=== PATIENT | female | born 1980 | race Two or more races ===

== ENCOUNTER 2020-06-15 12:42 | Outpatient (REF) | payer OTHER, SELFPAY ==
--- NOTE | 2020-06-15 | US_ITS ---
EXAMINATION: US PELVIS COMPLETE US PELVIS TRANSVAGINAL CLINICAL INFORMATION: Left lower quadrant pain. LMP 05/26/2020. COMPARISON: Pelvic ultrasound dated 04/17/2016 TECHNIQUE: Transabdominal and transvaginal imaging was performed. FINDINGS: The uterus is of normal size and echogenicity measuring 8.9 x 4.4 x 6.1 cm. A regular homogeneous endometrium is identified measuring 1.6 cm. Nabothian cysts within the cervix. Both ovaries are of normal size and echogenicity. The right measures 2.9 x 1.9 x 1.6 cm for a volume of 4.6 mL. Right ovarian probable corpus luteum measuring up to 1.8 cm. The left measures 4.5 x 2.7 x 2 cm for a volume of 12.7 mL. Trace pelvic fluid within the right and left adnexa. US/US pelvic complete IMPRESSION: 1. Sonographically unremarkable uterus and endometrium. 2. Right ovarian corpus luteum measuring 1.8 cm. 3. Trace free fluid within the right and left adnexa.
--- NOTE | 2020-06-15 | US_ITS ---
EXAMINATION: US PELVIS COMPLETE US PELVIS TRANSVAGINAL CLINICAL INFORMATION: Left lower quadrant pain. LMP 05/26/2020. COMPARISON: Pelvic ultrasound dated 04/17/2016 TECHNIQUE: Transabdominal and transvaginal imaging was performed. FINDINGS: The uterus is of normal size and echogenicity measuring 8.9 x 4.4 x 6.1 cm. A regular homogeneous endometrium is identified measuring 1.6 cm. Nabothian cysts within the cervix. Both ovaries are of normal size and echogenicity. The right measures 2.9 x 1.9 x 1.6 cm for a volume of 4.6 mL. Right ovarian probable corpus luteum measuring up to 1.8 cm. The left measures 4.5 x 2.7 x 2 cm for a volume of 12.7 mL. Trace pelvic fluid within the right and left adnexa. US/US transvaginal IMPRESSION: 1. Sonographically unremarkable uterus and endometrium. 2. Right ovarian corpus luteum measuring 1.8 cm. 3. Trace free fluid within the right and left adnexa.
== END 2020-06-15 12:43 | disposition home or self-care (01) ==
LOC: HO.US 12:42
PROVIDERS: PCP Student in an Organized Health Care Education/Training Program; Visit Provider Nurse Practitioner
DX: R10.32 Left lower quadrant pain (principal)
CPT/HCPCS: 76830; 76856

== ENCOUNTER 2020-06-30 08:17 | Outpatient (REF) | payer OTHER, SELFPAY ==
--- NOTE | ~2020-06-30 | US_ITS ---
EXAMINATION: US ABDOMEN COMPLETE CLINICAL INFORMATION: Epigastric pain. COMPARISON: None TECHNIQUE: Real-time imaging of the abdominal viscera. FINDINGS: PANCREAS: Normal. ABDOMINAL AORTA: The proximal, mid, and distal segments are normal in caliber. INFERIOR VENA CAVA: Visualized portions are normal. LIVER: Normal. The liver is normal in size. The liver contour is normal. Parenchymal echogenicity is normal. No focal hepatic lesion. There is no intrahepatic biliary duct dilatation seen. GALLBLADDER: Normal. The gallbladder is physiologically distended without evidence of stones, sludge, polyps, wall thickening or pericholecystic fluid. COMMON BILE DUCT: Normal in caliber measuring 0.3 cm in diameter. RIGHT KIDNEY: Normal. No hydronephrosis. No renal calculi or focal parenchymal lesions. The kidney measures 11 cm in maximum dimension. LEFT KIDNEY: Normal. No hydronephrosis. No renal calculi or focal parenchymal lesions. The kidney measures 11 cm in maximum dimension. SPLEEN: Normal. The spleen measures 10.3 cm in maximum dimension. FREE FLUID: None. US/US abdomen complete IMPRESSION: Normal abdominal ultrasound.
== END 2020-06-30 08:18 | disposition home or self-care (01) ==
LOC: HO.HMGCX 08:17
PROVIDERS: PCP Student in an Organized Health Care Education/Training Program; Visit Provider Student in an Organized Health Care Education/Training Program
DX: R10.13 Epigastric pain (principal)
CPT/HCPCS: 76700

== ENCOUNTER → 2020-08-15 13:01 | Outpatient (BNVA) | payer OTHER, SELFPAY | PROVIDERS: PCP Internal Medicine; Visit Provider Internal Medicine Gastroenterology ==

== ENCOUNTER 2020-08-29 08:54 | Outpatient (REF) | payer OTHER, SELFPAY ==
--- NOTE | ~2020-08-29 | CT_ITS ---
EXAMINATION: CT ABDOMEN AND PELVIS WITH CONTRAST CLINICAL INFORMATION: 40-year-old female with lower abdominal pain COMPARISON: Abdominal ultrasound June 30, 2020 and pelvic ultrasound June 15, 2020 TECHNIQUE: Multidetector volumetric images were obtained from the superior aspect of the liver through the pubic symphysis following administration 85 mL of Omnipaque 350 intravenous contrast. Sagittal and coronal reformatted images were obtained on the technologist's workstation. This CT examination was performed using dose optimization techniques as appropriate, variously including the following: *Automated exposure control *Adjustment of mA and/or kV according to patient size (this includes techniques or standardized protocols for targeted exams where dose is matched to indication/reason for exam; i.e. extremities or head) *Use of iterative reconstruction technique DLP: 361 mGy-cm FINDINGS: Visualized lung bases are well aerated. The liver demonstrates normal size, contour and attenuation. 7 mm hypodensity within the right hepatic lobe is too small to accurately characterize. The gallbladder is normal in appearance. The pancreas, spleen and adrenal glands are unremarkable. Symmetrically enhancing kidneys. There is mild fullness of the right-sided collecting system and subtle prominence of the left-sided collecting system. No renal calculi appreciated. The stomach is decompressed. Normal caliber loops of small and large bowel. Moderate stool burden throughout the colon. Normal appendix. Nonaneurysmal abdominal aorta. The bladder is well-distended and normal in appearance. Unremarkable CT appearance of the uterus. Trace free pelvic fluid is likely physiologic. Shotty bilateral inguinal lymph nodes. No acute osseous abnormality. CT/CT abdomen pelvis w con IMPRESSION: -Mild fullness of the right-sided collecting system with subtle prominence of the left-sided collecting system. No definitive renal calculi are noted. The distal ureters are poorly visualized as they abut the ovary. Clinical correlation is recommended. This may be further evaluated with CT urogram if clinically indicated. -Moderate stool burden throughout the colon suggesting constipation.
[2020-08-29] MEDS: Barium Sulfate Oral (Berry) 450 ML ORAL.SUSP 900 ML PO (12:04)
== END 2020-08-29 08:55 | disposition home or self-care (01) ==
LOC: HO.CT 08:54
PROVIDERS: PCP Student in an Organized Health Care Education/Training Program; Visit Provider Internal Medicine Gastroenterology
DX: R10.30 Lower abdominal pain, unspecified (principal); Z87.42 Personal history of other diseases of the female genital tract
CPT/HCPCS: 74177; Q9967

== ENCOUNTER 2020-08-30 14:04 | Outpatient (REF) | payer OTHER, SELFPAY ==
[2020-08-30 15:05] LABS: Glucose Urine UA NEG (NEG); Leukocyte Esterase Urine 1+ (NEG); Nitrite Urine NEG (NEG); Specific Gravity - Urine 1.025 (1.005-1.025); UACC Culture Trigger YES; Urine Blood NEG (NEG); Urine Ketones NEG (NEG); Urine Protein NEG (NEG-TRACE)
[2020-08-30 15:07] LABS: Appearance Urine CLEAR; Color Urine YELLOW
[2020-08-30 15:15] LABS: RBC Urine 0-2 /HPF (0); Squamous Epithelial Cell Urine 1+ /LPF; WBC Urine 0-2 /HPF (0-4)
[2020-08-30 15:16] LABS: Mucus Urine TRACE /LPF
== END 2020-08-30 14:05 | disposition home or self-care (01) ==
LOC: HO.LAB 14:04
PROVIDERS: PCP Internal Medicine; Visit Provider Internal Medicine Gastroenterology
DX: R10.30 Lower abdominal pain, unspecified (principal)
CPT/HCPCS: 81001; 81003; 87086

== ENCOUNTER 2020-09-02 09:08 | Outpatient (REF) | payer OTHER, SELFPAY ==
[2020-09-02 10:06] LABS: MANUAL DIFF FLAG NO
[2020-09-02 10:24] LABS: Basophils Absolute Auto 0.1 X10*3/uL (0.0-0.2); Basophils Percent Auto 1.3 % (0-2); Eosinophils Absolute Auto 0.1 X10*3/uL (0.0-0.4); Eosinophils Percent Auto 1.7 % (0-4); Hematocrit 39.1 % (37-47); Hemoglobin 12.9 g/dl (12.0-16.0); Imm Gran Abs Auto 0.02 X10*3/uL (0.00-0.03); Imm Gran Pct Auto 0.3 % (0.0-0.4); Lymphocytes Absolute Auto 1.4 X10*3/uL (1.2-4.9); Lymphocytes Percent Auto 19.4 % (20-40); Mean Corpuscular Hemoglobin 27.9 pg (27.0-33.0); Mean Corpuscular Volume 84.4 fL (80-98); Mean Platelet Volume 10.3 fL (9.4-12.3); Monocytes Absolute Auto 0.5 X10*3/uL (0.1-1.2); Monocytes Percent Auto 7.3 % (2-11); Neutrophils Absolute Auto 4.9 X10*3/uL (2.0-8.3); Platelet Count 256 X10*3/uL (160-400); Red Blood Count 4.63 X10*6/uL (4.20-5.50); Red Cell Distribution Width 13.4 % (11.0-16.0)
[2020-09-02 10:42] LABS: Alanine Aminotransferase 18 U/L (0-31); Albumin Level 4.3 g/dL (3.5-5.0); Alkaline Phosphatase 66 U/L (39-117); Anion Gap 13 (12-20); Aspartate Amino Transferase 15 U/L (5-31); Bilirubin Total 0.4 mg/dL (0.0-1.0); Blood Urea Nitrogen 15 mg/dL (9-16); Calcium 9.2 mg/dL (8.4-10.2); Carbon Dioxide 24 mmol/L (22-29); Chloride 107 mmol/L (96-108); Cholesterol 148 mg/dL; Estimated Glomerular Filt Rate > 60; Glucose Fasting 92 mg/dL (60-99); HDL Cholesterol 30 mg/dL; LDL Cholesterol Calculated 100 mg/dl; Potassium 4.2 mmol/L (3.3-5.1); Sodium 140 mmol/L (135-145); Total Protein 7.5 g/dL (6.5-8.0); Triglycerides 92 mg/dL
[2020-09-02 11:06] LABS: TSH reflex Free T4 2.28 uIU/mL (0.32-4.0)
[2020-09-04 07:57] LABS: SARS COV2 IgG Negative (Negative)
[2020-09-06 13:11] LABS: Vitamin D 25-OH, D2 <4 ng/mL; Vitamin D 25-OH, D3 28 ng/mL; Vitamin D 25-OH, Total 28 ng/mL (30-100)
== END 2020-09-02 09:09 | disposition home or self-care (01) ==
LOC: HO.LAB 09:08
PROVIDERS: PCP Internal Medicine; Visit Provider Internal Medicine
DX: Z20.822 Contact with and (suspected) exposure to COVID-19 (principal); R10.30 Lower abdominal pain, unspecified; D64.9 Anemia, unspecified; E66.3 Overweight; E55.9 Vitamin D deficiency, unspecified; E78.5 Hyperlipidemia, unspecified
CPT/HCPCS: 36415; 80053; 80061; 82306; 84443; 85025; 86769

== ENCOUNTER 2020-11-21 14:35 | Outpatient (REF) | payer OTHER, SELFPAY ==
--- NOTE | ~2020-11-21 | CT_ITS ---
EXAMINATION: CT ABDOMEN AND PELVIS WITHOUT AND WITH CONTRAST CLINICAL INFORMATION: Lower abdominal pain. COMPARISON: Previous CT of the abdomen and pelvis August 2020 and pelvic ultrasound May 2020. TECHNIQUE: Noncontrast CT of the abdomen and pelvis is performed followed by split bolus contrast-enhanced images using 85 mL Omnipaque 350 contrast.? Postcontrast imaging is performed during the combined nephrogram and excretion phase. Sagittal and coronal reformatted images were obtained on the technologist's workstation for both the precontrast and postcontrast phases. This CT examination was performed using dose optimization techniques as appropriate, variously including the following: *Automated exposure control. *Adjustment of mA and/or kV according to patient size (this includes techniques or standardized protocols for targeted exams where dose is matched to indication/reason for exam; i.e. extremities or head). *Use of iterative reconstruction technique. DLP: 688 mGy-cm FINDINGS: LUNG BASES: The visualized lung bases are unremarkable. LIVER, GALLBLADDER, AND BILIARY TREE: There is a small low-attenuation lesion high in the dome of the liver measuring 7 mm, axial image 11 series 3, that is stable. The liver is otherwise unremarkable. The gallbladder is unremarkable. There is no biliary duct dilatation. PANCREAS: Unremarkable. SPLEEN: Unremarkable. ADRENAL GLANDS: Unremarkable. KIDNEYS AND URETERS: There is mild right hydronephrosis and right proximal and mid ureteral dilatation. The right distal ureter does not appear dilated. No stone is seen. The left renal collecting system is normal-appearing. The left ureter is normal in caliber. BLADDER: Unremarkable. GASTROINTESTINAL TRACT: The small and large bowel are unremarkable. The appendix is unremarkable. ABDOMINAL WALL: No significant hernia is appreciated. LYMPH NODES: Normal. VASCULAR: Unremarkable. PELVIC VISCERA: Unremarkable. OSSEUS STRUCTURES: Unremarkable. CT/CT urogram IMPRESSION: There is mild right hydronephrosis and proximal and mid ureteral dilatation similar to previous exam. No stone or mass seen.
[2020-11-21] MEDS: iohexoL 350 MG/ML 100 ML INFUS..BTL IV (15:29)
== END 2020-11-21 14:36 | disposition home or self-care (01) ==
LOC: HO.CT 14:35
PROVIDERS: PCP Internal Medicine; Visit Provider Internal Medicine
DX: R10.30 Lower abdominal pain, unspecified (principal)
CPT/HCPCS: 74178; Q9967

== ENCOUNTER → 2020-12-27 14:53 | Outpatient (BNVA) | payer OTHER, SELFPAY | PROVIDERS: Visit Provider Urology ==

== ENCOUNTER 2021-02-09 13:49 | Outpatient (REF) | payer OTHER, SELFPAY ==
--- NOTE | ~2021-02-09 | US_ITS ---
EXAMINATION: US RETROPERITONEAL LIMITED (RENAL ONLY) CLINICAL INFORMATION: Renal colic. COMPARISON: Ultrasound abdomen 06/27/[address] urogram October 2020 TECHNIQUE: Real-time imaging of the kidneys. FINDINGS: RIGHT KIDNEY: 10.9 x 4.28 x 6.1 cm (SAG x AP x TRV). The kidney is normal in size, contour, and echogenicity. Renal cortical thickness is normal. No calculi or focal parenchymal lesions. No hydronephrosis. LEFT KIDNEY: 10.4 x 4.57 x 4.6 cm (SAG x AP x TRV). The kidney is normal in size, contour, and echogenicity. Renal cortical thickness is normal. No calculi or focal parenchymal lesions. No hydronephrosis. US/US renal BI IMPRESSION: Normal renal ultrasound.
== END 2021-02-09 13:50 | disposition home or self-care (01) ==
LOC: HO.HMGCX 13:49
PROVIDERS: PCP Internal Medicine; Visit Provider Urology
DX: R10.84 Generalized abdominal pain (principal); N13.39 Other hydronephrosis; R35.0 Frequency of micturition; R39.14 Feeling of incomplete bladder emptying
CPT/HCPCS: 76775

== ENCOUNTER 2021-05-08 09:29 | Outpatient (REF) | payer OTHER, SELFPAY ==
--- NOTE | ~2021-05-08 | XR_ITS ---
EXAMINATION: XR CHEST CLINICAL INFORMATION: Chest pain. COMPARISON: Chest radiographs dated 08/17/2015. TECHNIQUE: Frontal view of the chest was obtained. FINDINGS: No significant abnormality is noted involving the heart, lungs, mediastinum, bony thorax or soft tissues. XR/XR chest 1V IMPRESSION: No acute cardiopulmonary process.
== END 2021-05-08 09:30 | disposition home or self-care (01) ==
LOC: HO.XRAY 09:29
PROVIDERS: PCP Internal Medicine; Visit Provider Nurse Practitioner Acute Care
DX: R07.89 Other chest pain (principal)
CPT/HCPCS: 71045

== ENCOUNTER 2021-05-21 08:06 | Outpatient (REF) | payer OTHER, SELFPAY ==
[2021-05-21 08:21] LABS: MANUAL DIFF FLAG NO
[2021-05-21 08:56] LABS: Eosinophils Absolute Auto 0.1 X10*3/uL (0.0-0.4); Eosinophils Percent Auto 1.9 % (0-4); Hematocrit 38.5 % (37.0-47.0); Hemoglobin 12.4 g/dl (12.0-16.0); Imm Gran Abs Auto 0.01 X10*3/uL (0.00-0.03); Imm Gran Pct Auto 0.2 % (0.0-0.4); Lymphocytes Absolute Auto 0.6 X10*3/uL (1.2-4.9); Lymphocytes Percent Auto 14.3 % (20-40); Mean Corpuscular HGB Conc 32.2 g/dl (31.0-35.0); Mean Corpuscular Volume 83.9 fL (80.0-98.0); Mean Platelet Volume 9.7 fL (9.4-12.3); Monocytes Absolute Auto 0.4 X10*3/uL (0.1-1.2); Monocytes Percent Auto 9.9 % (2-11); Neutrophils Percent Auto 72.7 % (45-73); Platelet Count 244 X10*3/uL (160-400); Red Blood Count 4.59 X10*6/uL (4.20-5.50); Red Cell Distribution Width 13.5 % (11.0-16.0); White Blood Count 4.1 X10*3/uL (4.8-10.8)
[2021-05-21 09:05] LABS: Estimated Average Glucose 105 mg/dL; Hemoglobin A1C 117.1239 umol/L; Hemoglobin A1c % 5.3 %
[2021-05-21 09:22] LABS: Alanine Aminotransferase 16 U/L (0-31); Albumin Level 4.1 g/dL (3.5-5.0); Alkaline Phosphatase 60 U/L (39-117); Anion Gap 9 (12-20); Aspartate Amino Transferase 15 U/L (5-31); Bilirubin Total 0.3 mg/dL (0.0-1.0); Blood Urea Nitrogen 9 mg/dL (9-16); Calcium 9.3 mg/dL (8.4-10.2); Carbon Dioxide 27 mmol/L (22-29); Chloride 108 mmol/L (96-108); Cholesterol 156 mg/dL; Estimated Glomerular Filt Rate > 60; Glucose Fasting 97 mg/dL (60-99); HDL Cholesterol 31 mg/dL; LDL Cholesterol Calculated 103 mg/dl; Sodium 140 mmol/L (135-145); Total Protein 7.2 g/dL (6.5-8.0); Triglycerides 111 mg/dL
[2021-05-25 13:01] LABS: Vitamin D 25-OH, D2 <4 ng/mL; Vitamin D 25-OH, D3 27 ng/mL; Vitamin D 25-OH, Total 27 ng/mL (30-100)
== END 2021-05-21 08:07 | disposition home or self-care (01) ==
LOC: HO.LAB 08:06
PROVIDERS: PCP Internal Medicine; Visit Provider Nurse Practitioner Acute Care
DX: E66.3 Overweight (principal); E55.9 Vitamin D deficiency, unspecified
CPT/HCPCS: 36415; 80053; 80061; 82306; 83036; 85025

== ENCOUNTER 2021-08-24 14:13 | Outpatient (REF) | payer OTHER, SELFPAY ==
[2021-08-24 14:55] LABS: Hematocrit 39.2 % (37.0-47.0); Hemoglobin 12.6 g/dl (12.0-16.0); Mean Corpuscular HGB Conc 32.1 g/dl (31.0-35.0); Mean Corpuscular Hemoglobin 26.8 pg (27.0-33.0); Mean Corpuscular Volume 83.2 fL (80.0-98.0); Mean Platelet Volume 9.8 fL (9.4-12.3); Platelet Count 278 X10*3/uL (160-400); Red Blood Count 4.71 X10*6/uL (4.20-5.50); Red Cell Distribution Width 13.3 % (11.0-16.0); White Blood Count 5.8 X10*3/uL (4.8-10.8)
[2021-08-24 15:29] LABS: Erythrocyte Sedimentation Rate 11 MM/HR (0-20)
[2021-08-24 15:31] LABS: Alanine Aminotransferase 20 U/L (0-31); Albumin Level 4.4 g/dL (3.5-5.0); Alkaline Phosphatase 66 U/L (39-117); Anion Gap 10 (12-20); Aspartate Amino Transferase 18 U/L (5-31); Bilirubin Total 0.5 mg/dL (0.0-1.0); Blood Urea Nitrogen 9 mg/dL (9-16); Calcium 9.6 mg/dL (8.4-10.2); Carbon Dioxide 27 mmol/L (22-29); Chloride 107 mmol/L (96-108); Estimated Glomerular Filt Rate > 60; Glucose Random 77 mg/dL (60-115); Lipase 33 U/L (8-78); Sodium 140 mmol/L (135-145); Total Protein 7.7 g/dL (6.5-8.0)
== END 2021-08-24 14:14 | disposition home or self-care (01) ==
LOC: HO.LAB 14:13
PROVIDERS: Physician Assistant; PCP Internal Medicine; Visit Provider Nurse Practitioner Family
DX: R10.84 Generalized abdominal pain (principal); M79.10 Myalgia, unspecified site
CPT/HCPCS: 36415; 80053; 82550; 83690; 85027; 85652

== ENCOUNTER 2021-09-14 11:14 | Outpatient (REF) | payer OTHER, SELFPAY ==
--- NOTE | ~2021-09-14 | US_ITS ---
EXAMINATION: US ABDOMEN COMPLETE CLINICAL INFORMATION: Right upper quadrant pain, rule out gallbladder etiology. COMPARISON: US retroperitoneal limited (renal only) 02/09/2021. CT abdomen and pelvis without and with contrast 11/21/2020. Ultrasound abdomen complete 06/30/2020. TECHNIQUE: Real-time imaging of the abdominal viscera. FINDINGS: PANCREAS: Normal. ABDOMINAL AORTA: The proximal, mid, and distal segments are normal in caliber. INFERIOR VENA CAVA: Visualized portions are normal. LIVER: Normal. The liver is normal in size. The liver contour is normal. Parenchymal echogenicity is normal. No focal hepatic lesion. There is no intrahepatic biliary duct dilatation seen. GALLBLADDER: Normal. The gallbladder is physiologically distended without evidence of stones, sludge, polyps, wall thickening or pericholecystic fluid. COMMON BILE DUCT: Normal in caliber measuring 0.3 cm in diameter. RIGHT KIDNEY: Normal. No hydronephrosis. No renal calculi or focal parenchymal lesions. The kidney measures 11.7 cm in maximum dimension. LEFT KIDNEY: Normal. No hydronephrosis. No renal calculi or focal parenchymal lesions. The kidney measures 11.0 cm in maximum dimension. SPLEEN: Normal. The spleen measures 10.3 cm in maximum dimension. FREE FLUID: None. US/US abdomen complete IMPRESSION: Normal abdominal ultrasound.
== END 2021-09-14 11:15 | disposition home or self-care (01) ==
LOC: HO.HMGCX 11:14
PROVIDERS: Visit Provider Nurse Practitioner Family
DX: R10.84 Generalized abdominal pain (principal); R10.11 Right upper quadrant pain
CPT/HCPCS: 76700

== ENCOUNTER 2022-01-01 12:52 | Outpatient (REF) | payer OTHER, SELFPAY ==
--- NOTE | ~2022-01-01 | US_ITS ---
EXAMINATION: US PELVIS CLINICAL INFORMATION: Pain COMPARISON: Previous pelvic ultrasound May 2020 TECHNIQUE: Ultrasound of the pelvis is performed using both transabdominal and transvaginal transducers along with Doppler. Transvaginal imaging is performed due to inadequate visualization transabdominally. FINDINGS: The uterus is retroverted and measures 8.2 x 4.7 x 5.8 cm in dimension. No focal uterine lesion is seen. Endometrial thickness is normal measuring 1.4 cm. There are nabothian cysts in the cervix. The right ovary is normal and measures 3.7 x 1.8 x 2.6 cm. The left ovary measures 4 x 2 x 3 cm. There is a 2 x 1.5 x 1.9 cm complex left ovarian cyst probably representing a corpus luteum. There is no fluid in the pelvis. US/US pelvic and transvaginal IMPRESSION: Unremarkable exam.
== END 2022-01-01 12:53 | disposition home or self-care (01) ==
LOC: HO.HMGCX 12:52
DX: R10.2 Pelvic and perineal pain (principal)
CPT/HCPCS: 76830; 76856

== ENCOUNTER 2022-05-02 12:37 | Outpatient (REF) | payer OTHER, SELFPAY ==
[2022-05-02 13:45] LABS: CDiff Gene PCR NEGATIVE (Negative)
[2022-05-02 13:54] LABS: Leukocytes Stool Qualitative NEGATIVE (NEGATIVE)
== END 2022-05-02 12:38 | disposition home or self-care (01) ==
LOC: HO.LNP 12:37
PROVIDERS: Visit Provider Internal Medicine
DX: K92.1 Melena (principal); R19.7 Diarrhea, unspecified
CPT/HCPCS: 87493; 89055

== ENCOUNTER 2023-01-21 13:49 | Outpatient (AMB) | payer OTHER, SELFPAY ==
[2023-01-21 13:51] VITALS: BP 110/80; PULSE 98; O2SAT 98; BMI 28.0
--- NOTE | 2023-01-21 13:51 | A.OFFPC_ITS ---
Vital Signs 01/21/23 13:51 Height 5 ft 4 in Weight 163 lb BMI 28.0 BP 110/80 Blood Pressure Location Lt brachial Position Sitting Pulse 98 Pulse Source Pulse Oximeter Pulse Oximetry (%) 98 Oxygen Delivery Method Room Air Intake Visit Reasons: Transfer of care from Dr. Espinoza Intake Note: pt is here for tx of care, requesting referral for GI for rectal bleeding, complaint of L flank pain since yesterday Medical Receptionist Medical Assistant Required: No Tailer Off: Not Required per policy Accompanied by: Self / Same As Patient Allergies amoxicillin [From Augmentin] Allergy (Mild, Verified 01/21/23 14:15) rash clavulanic acid [From Augmentin] Allergy (Mild, Verified 01/21/23 14:15) rash SEASONAL ALLERGIES Allergy (Mild, Uncoded 04/29/22 16:34) RUNNY NOSE Medication List - Last Reconciled 01/21/23 by LAVERNE Blevins acetaminophen 1,000 mg PO Q6H PRN cholecalciferol (vitamin D3) 25 mcg PO DAILY 30 days ibuprofen 600 mg PO Q6H PRN 15 days loratadine (Allergy Relief (loratadine)) 10 mg PO DAILY PRN 90 days [id number]-BA 3.5-10,000-1 mg/mL-unit/mL-% 4 drps otic (ears) Q8H Tobacco use date assessed: 01/21/23 Dental Screening Dental Screen Date: 01/21/23 Did you have a dental visit in the last 12 months?: Yes Did you have a dental problem in the last 6 months where you did not have access to dental care?: No Was dental information given to patient?: Patient has dentist HPI HPI Comments History of Present Illness Details 32-year-old female presents today for transfer care from Dr. Espinoza. Past medical history significant for vitamin-D deficiency, history of endometriosis and hydronephrosis. Patient reports left lower quadrant pain since yesterday, states the pain is like a pulling pain. Patient reports she is constipated at times however last bowel movement was yesterday which she reported as normal. Patient denies any nausea, vomiting, diarrhea and blood in the stools. Patient does report epigastric pain and feeling of fullness. Patient reports has been on omeprazole in the past. Review of the notes patient was seen at [facility] in April for right upper quadrant pain and had abdominal CT completed which showed a 7 mm low-density lesion on the left lobe of the liver which was too small to characterize, no colonic wall thickening with did however reveal a moderate amount of pelvic free fluid. Given patient is experiencing left lower quadrant abdominal pain will order abdominal CT scan to follow-up. Pap smear: Patient follows with [facility] obgyn Mammogram: May 2022 at [place] Eye exam: Last year. [facility] Medical History (Updated 01/21/23 @ 14:46 by LAVERNE Blevins) Gastroenteritis due to norovirus History of endometriosis Hydronephrosis Otitis media Overweight Surgical History H/O laparoscopy History of tubal ligation Family History Father Diabetes Mother Hypertension Maternal Aunt Cancer Family/Other Cancer Social History Housing: Apartment Alcohol intake: never Patient Tobacco Use Status: Never used Tobacco e-Cigarette/Vaping Use: Never Used Second Hand Smoke Exposure: No service: No Current occupational status: employed Current occupational exposures/hazards: No Cognitive needs: No Hearing needs: No Vision needs: Yes (glasses) Questionnaire PHQ-9 Over the last 2 weeks, how often have you been bothered by any of the following problems? 1. Little interest or pleasure in doing things: not at all 2. Feeling down, depressed, or hopeless: not at all 3. Trouble falling or staying asleep, or sleeping too much: not at all 4. Feeling tired or having little energy: not at all 5. Poor appetite or overeating: not at all 6. Feeling bad about yourself - or that you are a failure or have let yourself or your family down: not at all 7. Trouble concentrating on things, such as reading the newspaper or watching television: not at all 8. Moving or speaking so slowly that other people could have noticed. Or the opposite - being so fidgety or restless that you have been moving around a lot more than usual: not at all 9. Thoughts that you would be better off or of hurting yourself in some w ay: not at all Total score: 0 Depression Screening Interpretation: Negative 85933 - PHQ-9 Billing: Yes Source: Developed by Drs. Dayne Arauz, Chintan Philip and colleagues, with an educational yeni from [employer]. Thrive Questionnaire Date Thrive assessed: 01/21/23 I am a: Patient What is your living situation today?: I have a steady place to live Within the past 12 months, did the food you bought not last and you didn't have the money to get more?: Never true Within the past 12 months, did you worry whether your food would run out before you got money to buy more?: Never true Do you have trouble paying for medicines?: No Do you have trouble getting transportation to medical appointments?: No Do you have trouble paying your heating and electricity bill?: No Do you have trouble taking care of your child, family member or friend?: No Do you have trouble with day-to-day activities such as bathing, preparing meals, shopping, managing finances, etc.?: No Are you currently unemployed and looking for a job?: No Are you interested in more education?: No Currently or been in a relationship where the following occur: no concerns reported AUDIT C Alcohol Use Questionnaire (AUDIT-C) 1. How often do you have a drink containing alcohol?: Never Total Score: 0 OZZIE-7 AMB Questionnaire OZZIE-7 Date OZZIE - 7 assessed: 01/21/23 Feeling nervous, anxious, or on edge: 0 = Not at all Not being able to stop or control worryin = Not at all Worrying too much about different things: 0 = Not at all Trouble relaxin = Not at all Being so restless that it is hard to sit still: 0 = Not at all Becoming easily annoyed or irritable: 0 = Not at all Feeling afraid as if something awful might happen: 0 = Not at all Total OZZIE-7 score (0-4 normal; 5-9 mild; 10-14 moderate; 15-21 severe): 0 Source: Developed by Drs. Dayne Arauz, Chintan Philip and colleagues, with an educational yeni from [employer]. OZZIE-7 Assessment Billing OZZIE-7 Assessment Tool: OZZIE-7 Assessment 38735 Physical exam (Primary Care) Vital Signs: Last Vital Signs Pulse 98 01/21/23 13:51 BP 110/80 01/21/23 13:51 Pulse Ox 98 01/21/23 13:51 Oxygen Delivery Method Room Air 01/21/23 13:51 BMI result Body Mass Index 28.0 Tobacco/Smoking Status: Tobacco use Status Tobacco use date assessed 01/21/23 01/21/23 14:04 Patient Tobacco Use Status Never used Tobacco 01/21/23 14:04 e-Cigarette/Vaping Use Never Used 01/21/23 14:04 PHQ-9: PHQ-9 Score PHQ-9: Total score 0 01/21/23 14:43 Depression Screening Interpretation: Negative Thrive Assessment: Date of Thrive Assessment Date Thrive assessed 01/21/23 01/21/23 14:10 Currently or been in a relationship where the following occur: no concerns reported Assessment and Plan Assessment & Plan (1) Left lower quadrant pain: Code(s): R10.32 - Left lower quadrant pain Plan: Abdominal pelvis CT ordered to further evaluate. (2) Dyspepsia: Code(s): R10.13 - Epigastric pain Plan: Given patient is experiencing epigastric pain and fullness will start patient back on omeprazole 20 mg daily. Avoid the foods that cause that, usually spicy foods, tomato products, juices, coffee, soda and foods that you're sensitive to.? After eating do not lie down, allow 3-4 hours before lying down. And keep the head of the bed above 30 degrees to avoid the acid from going up. (3) Free fluid in pelvis: Code(s): R18.8 - Other ascites Plan: Repeat CT scan ordered to follow-up. (4) Physical exam, annual: Code(s): Z00.00 - Encounter for general adult medical examination without abnormal findings Plan: Fasting labs ordered. Follow-up 1 year. Plan Follow-up in 3 months. Orders: Orders Comprehensive [place]. Panel Fast 01/21/23 R10.13 - Epigastric pain Lipid Panel 01/21/23 Z13.220 - Encounter for screening for lipoid disorders TSH reflex Free T4 01/21/23 Z13.29 - Encounter for screening for other suspected endocrine disorder Vitamin D 25-OH Total 01/21/23 Z13.21 - Encounter for screening for nutritional disorder Complete Blood Count Auto Diff 01/21/23 Z13.0 - Encounter for screening for diseases of the blood and blood-forming organs and certain disorders involving the immune mechanism Amylase 01/21/23 R10.32 - Left lower quadrant pain Lipase 01/21/23 R10.32 - Left lower quadrant pain CT abdomen pelvis w IV con 01/21/23 R10.32 - Left lower quadrant pain, R18.8 - Other ascites Medications: New omeprazole 20 mg PO DAILY 30 caps 0RF Refilled cholecalciferol (vitamin D3) 25 mcg PO DAILY 30 days 30 caps 3RF E55.9 - Vitamin D deficiency, unspecified [id number]-[id number] 3.5-10,000-1 mg/mL-unit/mL-% 4 drps otic (ears) Q8H 10 mL 0RF Coding Level of Care Code New Pt Prev Care 40-64y(68810) Diagnoses Left lower quadrant pain R10.32 Dyspepsia R10.13 Free fluid in pelvis R18.8 Physical exam, annual Z00.00 Additional Codes OZZIE-7 Assessment Billing - OZZIE-7 Assessment Tool: OZZIE-7 Assessment [id number] ([id number])
== END 2023-01-21 14:32 | disposition home or self-care (01) ==
PROVIDERS: PCP Nurse Practitioner Family; Visit Provider Nurse Practitioner Family
DX: R10.32 Left lower quadrant pain (principal); R10.13 Epigastric pain; R18.8 Other ascites; Z00.00 Encounter for general adult medical examination without abnormal findings
CPT/HCPCS: 99386

== ENCOUNTER 2023-02-22 10:24 | Outpatient (REF) | payer OTHER, SELFPAY ==
[2023-02-22 10:43] LABS: MANUAL DIFF FLAG NO
[2023-02-22 11:03] LABS: Basophils Absolute Auto 0.1 X10*3/uL (0.0-0.2); Basophils Percent Auto 0.9 % (0-2); Eosinophils Absolute Auto 0.2 X10*3/uL (0.0-0.4); Eosinophils Percent Auto 2.7 % (0-4); Hematocrit 39.9 % (37.0-47.0); Hemoglobin 12.9 g/dl (12.0-16.0); Imm Gran Abs Auto 0.04 X10*3/uL (0.00-0.03); Imm Gran Pct Auto 0.7 % (0.0-0.4); Lymphocytes Absolute Auto 1.3 X10*3/uL (1.2-4.9); Lymphocytes Percent Auto 23.9 % (20-40); Mean Corpuscular HGB Conc 32.3 g/dl (31.0-35.0); Mean Corpuscular Hemoglobin 26.4 pg (27.0-33.0); Mean Corpuscular Volume 81.8 fL (80.0-98.0); Mean Platelet Volume 9.4 fL (9.4-12.3); Monocytes Absolute Auto 0.5 X10*3/uL (0.1-1.2); Monocytes Percent Auto 8.1 % (2-11); Neutrophils Absolute Auto 3.6 x10*3/uL (2.0-8.3); Neutrophils Percent Auto 63.7 % (45-73); Platelet Count 268 X10*3/uL (160-400); Red Blood Count 4.88 X10*6/uL (4.20-5.50); Red Cell Distribution Width 13.3 % (11.0-16.0); White Blood Count 5.6 X10*3/uL (4.8-10.8)
[2023-02-22 11:41] LABS: Alanine Aminotransferase 16 U/L (0-31); Albumin Level 4.1 g/dL (3.5-5.0); Alkaline Phosphatase 64 U/L (39-117); Amylase 79 U/L (28-100); Anion Gap 11 (12-20); Aspartate Amino Transferase 15 U/L (5-31); Bilirubin Total 0.4 mg/dL (0.0-1.0); Blood Urea Nitrogen 9 mg/dL (9-16); Calcium 9.6 mg/dL (8.4-10.2); Carbon Dioxide 25 mmol/L (22-29); Chloride 110 mmol/L (96-108); Cholesterol 164 mg/dL (<200); Estimated Glomerular Filt Rate > 60; Glucose Fasting 95 mg/dL (60-99); HDL Cholesterol 31 mg/dL (>40); LDL Cholesterol Calculated 103 mg/dL (<100); Lipase 38 U/L (8-78); Potassium 4.2 mmol/L (3.3-5.1); Sodium 142 mmol/L (135-145); Total Protein 7.4 g/dL (6.5-8.0); Triglycerides 154 mg/dL (<150)
[2023-02-22 11:57] LABS: TSH reflex Free T4 1.43 uIU/mL (0.32-4.0); Vitamin D 25-OH Total 26.3 ng/mL (>30)
== END 2023-02-22 10:25 | disposition home or self-care (01) ==
LOC: HO.LAB 10:24
PROVIDERS: PCP Nurse Practitioner Family; Visit Provider Nurse Practitioner Family
DX: Z13.220 Encounter for screening for lipoid disorders (principal); Z13.29 Encounter for screening for other suspected endocrine disorder; Z13.0 Encounter for screening for diseases of the blood and blood-forming organs and certain disorders involving the immune mechanism; Z13.21 Encounter for screening for nutritional disorder; R10.13 Epigastric pain; R10.32 Left lower quadrant pain; E66.3 Overweight; E55.9 Vitamin D deficiency, unspecified
CPT/HCPCS: 36415; 80053; 80061; 82150; 82306; 83690; 84443; 85025

== ENCOUNTER 2023-03-19 | Outpatient (REF) | payer OTHER, SELFPAY ==
--- NOTE | ~2023-03-19 | CT_ITS ---
EXAMINATION: CT ABDOMEN AND PELVIS WITH CONTRAST CLINICAL INFORMATION: Left lower quadrant pain COMPARISON: Previous CT of the abdomen and pelvis most recent October 2020, and pelvic ultrasound December 2021 TECHNIQUE: Multidetector volumetric images were obtained from the superior aspect of the liver through the pubic symphysis following administration 85 mL of Omnipaque 350 intravenous contrast. Sagittal and coronal reformatted images were obtained on the technologist's workstation. Oral contrast: Yes This CT examination was performed using dose optimization techniques as appropriate, variously including the following: *Automated exposure control *Adjustment of mA and/or kV according to patient size (this includes techniques or standardized protocols for targeted exams where dose is matched to indication/reason for exam; i.e. extremities or head) *Use of iterative reconstruction technique DLP: 397 mGy-cm FINDINGS: LUNG BASES: The visualized lung bases are unremarkable. LIVER, GALLBLADDER, AND BILIARY TREE: The liver is normal in size, shape, and attenuation. Stable 7 mm low-attenuation lesion in the anterior segment of the right lobe of the liver from August 2020 CT urogram. Stable appearance overlying long interval favors a benign liver lesion. No other focal hepatic lesion or biliary ductal dilatation is present. The gallbladder is unremarkable with no evidence of radiopaque gallstones, gallbladder wall thickening, or obvious pericholecystic inflammatory changes. PANCREAS: Unremarkable. SPLEEN: Unremarkable. ADRENAL GLANDS: Unremarkable. KIDNEYS AND URETERS: The kidneys are normal in size, shape, and attenuation. No hydronephrosis, hydroureter, or calculi seen. No perinephric stranding. BLADDER: Unremarkable. GASTROINTESTINAL TRACT: The small and large bowel are unremarkable. The appendix is unremarkable. ABDOMINAL WALL: No significant hernia is appreciated. LYMPH NODES: Normal. VASCULAR: Unremarkable. PELVIC VISCERA: Small amount of fluid in the pelvis. Retroverted uterus. Low-attenuation in the cervix which when compared with previous pelvic ultrasound probably represents nabothian cysts. OSSEOUS STRUCTURES: Unremarkable. CT/CT abdomen pelvis w IV con IMPRESSION: No cause of left lower quadrant pain seen. Fleischner guidelines were followed.
[2023-03-19] MEDS: iohexoL 350 MG/ML 100 ML INFUS..BTL IV (12:34)
[2023-03-19] MEDS: Barium Sulfate Oral (Vanilla) 450 ML ORAL.SUSP 900 ML PO (12:35)
== END 2023-03-19 00:01 | disposition home or self-care (01) ==
LOC: HO.CT
PROVIDERS: PCP Nurse Practitioner Family; Visit Provider Nurse Practitioner Family
DX: R10.32 Left lower quadrant pain (principal); R18.8 Other ascites
CPT/HCPCS: 74177; Q9967

== ENCOUNTER 2023-04-24 13:42 | Outpatient (AMB) | payer OTHER, SELFPAY ==
--- NOTE | 2023-04-24 14:03 | MHC.PC.OV ---
Vital Signs 04/24/23 14:04 Height 5 ft 4 in Weight 164 lb 4 oz BMI 28.2 BP 102/80 Blood Pressure Location Lt brachial Position Sitting Pulse 71 Pulse Source Pulse Oximeter Pulse Oximetry (%) 95 Oxygen Delivery Method Room Air Intake Visit Reasons: GERD, LLQ pain Clinical Resource Manager Required: No Accompanied by: Self / Same As Patient Allergies amoxicillin [From Augmentin] Allergy (Mild, Verified 04/24/23 14:06) rash clavulanic acid [From Augmentin] Allergy (Mild, Verified 04/24/23 14:06) rash SEASONAL ALLERGIES Allergy (Mild, Uncoded 04/29/22 16:34) RUNNY NOSE Tobacco use date assessed: 01/21/23 Dental Screening Dental Screen Date: 04/24/23 Did you have a dental visit in the last 12 months?: No Did you have a dental problem in the last 6 months where you did not have access to dental care?: No Was dental information given to patient?: Patient has dentist HPI HPI Comments History of Present Illness Details 32-year-old female presents today for transfer care from Dr. Espinoza. Past medical history significant for vitamin-D deficiency, history of endometriosis and hydronephrosis. Patient previously reported she was experiencing epigastric pain and fullness patient was started on a trial of omeprazole 20 mg daily for GERD. However patient reports she discontinued this medication and states she has been following dietary modifications in her symptoms have resolved. Repeat abdominal CT completed showed no cause left lower quadrant pain she was previously experiencing, did show small amount of pelvic free fluid for which patient was advised to follow-up with her OBGYN regarding this. Patient also reports right ankle pain x2 weeks with eversion and inversion. Denies any acute injury denies any soft tissue swelling. Recommended physical therapy however patient declines at this time would like to proceed with right ankle x-ray. [facility] Medical History (Updated 04/24/23 @ 14:23 by LAVERNE Blevins) Gastroenteritis due to norovirus Hydronephrosis Otitis media Overweight History of endometriosis Surgical History History of tubal ligation H/O laparoscopy Family History Father Diabetes Mother Hypertension Maternal Aunt Cancer Family/Other Cancer Social History Housing: Apartment Alcohol intake: never Patient Tobacco Use Status: Never used Tobacco e-Cigarette/Vaping Use: Never Used Second Hand Smoke Exposure: No service: No Current occupational status: employed Current occupational exposures/hazards: No Cognitive needs: No Hearing needs: No Vision needs: Yes (glasses) Questionnaire Thrive Questionnaire Date Thrive assessed: 01/21/23 OZZIE-7 AMB Questionnaire OZZIE-7 Date OZZIE - 7 assessed: 01/21/23 Source: Developed by Drs. Dayne Arauz, Toshia Meehan, Chintan Paige and colleagues, with an educational yeni from [employer]. Review of Systems Const Denies chills, Denies fatigue, Denies fever(s) and Denies poor appetite Eyes Denies no additional complaints ENT Reports Normal hearing present Card Denies chest pain, Denies syncope, Denies rapid heart rate and Denies dyspnea Resp Denies cough and Denies dyspnea GI Denies change in stool character, Denies constipation, Denies diarrhea, Denies nausea and Denies vomiting Denies urinary frequency, Denies dysuria and Denies urinary urgency Neuro Reports Normal hearing present, Denies confusion and Denies syncope Psych Denies confusion Endo Denies fatigue Physical exam (Primary Care) Vital Signs: Last Vital Signs Pulse 71 04/24/23 14:04 BP 102/80 04/24/23 14:04 Pulse Ox 95 04/24/23 14:04 Oxygen Delivery Method Room Air 04/24/23 14:04 BMI result Body Mass Index 28.2 Tobacco/Smoking Status: Tobacco use Status Tobacco use date assessed 01/21/23 04/24/23 14:09 Patient Tobacco Use Status Never used Tobacco 04/24/23 14:09 e-Cigarette/Vaping Use Never Used 04/24/23 14:09 Thrive Assessment: Date of Thrive Assessment Date Thrive assessed 01/21/23 04/24/23 14:09 Const General: No confusion Orientation/consciousness: No confusion HENMT Head: Yes normocephalic and Yes atraumatic Eyes Conjunctivae: conjunctivae normal Chest Chest palpation & inspection: normal inspection of the chest Resp Effort & Inspection: normal respiratory effort Auscultation: clear to auscultation bilaterally, no crackles, no rhonchi and no wheezes Cardio Rate: regular rate Rhythm: regular rhythm Heart sounds: S1 normal heart sound present and S2 normal heart sound present GI Inspection: Yes normal to inspection Neuro General: No confusion Cranial nerves: Yes Normal hearing present Extrem General: No edema Assessment and Plan Assessment & Plan (1) Right ankle pain: Code(s): M25.571 - Pain in right ankle and joints of right foot Plan: Right ankle x-ray ordered patient advise can take [id number] Tylenol or ibuprofen as needed for pain. Recommended physical therapy however patient declines at this time. (2) Left lower quadrant pain: Code(s): R10.32 - Left lower quadrant pain Plan: Patient reports left lower quadrant pain has resolved. Abdominal CT showed no cause of left lower quadrant pain. (3) Dyspepsia: Code(s): R10.13 - Epigastric pain Plan: Avoid the foods that cause that, usually spicy foods, tomato products, juices, coffee, soda and foods that you're sensitive to.? After eating do not lie down, allow 3-4 hours before lying down. And keep the head of the bed above 30 degrees to avoid the acid from going up. Plan Keep scheduled annual exam with PCP or follow-up sooner if needed. Orders: Orders XR ankle RT 2V 04/24/23 M25.571 - Pain in right ankle and joints of right foot Coding Level of Care Code Est Pt Level 3 (39972) Diagnoses Right ankle pain M25.571 Left lower quadrant pain R10.32 Dyspepsia R10.13
[2023-04-24 14:04] VITALS: BP 102/80; PULSE 71; O2SAT 95; BMI 28.2
== END 2023-04-24 14:47 | disposition home or self-care (01) ==
PROVIDERS: PCP Nurse Practitioner Family; Visit Provider Nurse Practitioner Family
DX: M25.571 Pain in right ankle and joints of right foot (principal); R10.32 Left lower quadrant pain; R10.13 Epigastric pain
CPT/HCPCS: 99213

== ENCOUNTER 2023-05-09 12:26 | Outpatient (REF) | payer OTHER, SELFPAY ==
--- NOTE | ~2023-05-09 | XR_ITS ---
EXAMINATION: XR ANKLE, RIGHT CLINICAL INFORMATION: Pain in right ankle and joints of right foot COMPARISON: None available. TECHNIQUE: AP, lateral, and mortise views of the right ankle. FINDINGS: There is mild soft tissue swelling over the lateral malleolus. The bones are intact. No fracture. Alignment is anatomic. Joint spaces are maintained. XR/XR ankle RT 2V IMPRESSION: No bony abnormality.
== END 2023-05-09 12:27 | disposition home or self-care (01) ==
LOC: HO.XRAY 12:26
PROVIDERS: PCP Nurse Practitioner Family; Visit Provider Nurse Practitioner Family
DX: M25.571 Pain in right ankle and joints of right foot (principal)
CPT/HCPCS: 73600

== ENCOUNTER 2023-09-29 14:41 | Outpatient (AMB) | payer OTHER, SELFPAY ==
[2023-09-29 14:49] VITALS: BP 118/82; PULSE 89; TEMP 36.8; O2SAT 99; BMI 28.4
--- NOTE | 2023-09-29 14:49 | MHC.OFFWIV ---
Intake Vital Signs 09/29/23 14:49 Height 5 ft 4 in Weight 165 lb 4 oz BMI 28.4 BP 118/82 Blood Pressure Location Lt brachial Position Sitting Pulse 89 Pulse Source Pulse Oximeter Temp 98.2 F Temp Source Oral Pulse Oximetry (%) 99 Oxygen Delivery Method Room Air Intake Visit Reasons: Ep pain on left side Intake Note: Pt is here today for LT side abd pain, pt states symptoms started . Patient Tobacco Use Status: Never used Tobacco Allergies amoxicillin [From Augmentin] Allergy (Mild, Verified 09/29/23 14:51) rash clavulanic acid [From Augmentin] Allergy (Mild, Verified 09/29/23 14:51) rash SEASONAL ALLERGIES Allergy (Mild, Uncoded 04/29/22 16:34) RUNNY NOSE Do you need a note to return to daycare/school/sports/work: No HPI HPI Comments History of Present Illness Details Patient presents to the walk-in today for sick visit Complaining of left lower quadrant abdominal pain for last 4 days But that she was constipated, took medication over the weekend and reports she passed a large amount of stool Discomfort persisted. She does endorse some dysuria and urgency. Denies hematuria. Endorses mild nausea that resolved with peppermints. Denies vomiting or diarrhea. Patient has history of chronic left lower quadrant pain, CT scan 7 months ago was normal. In the past this pain was resolved after taking omeprazole. Patient states she no longer takes this medication as she ran out. Tried to get in with her primary care doctor put her primary care doctor has left the practice. She is struggling to get established with a new doctor Patient denies fevers, chills, hematuria, syncope, weakness, dizziness, chest pain, headaches She denies chance of , denies concern for STI. [facility] Medical History (Updated 09/29/23 @ 15:19 by Leeann Fried APRN, PARAPROFESSIONAL AIDE TEACHER) Gastroenteritis due to norovirus Hydronephrosis Otitis media Overweight History of endometriosis Surgical History History of tubal ligation H/O laparoscopy Family History Father Diabetes Mother Hypertension Maternal Aunt Cancer Family/Other Cancer Social History Housing: Apartment Alcohol intake: never Patient Tobacco Use Status: Never used Tobacco e-Cigarette/Vaping Use: Never Used Second Hand Smoke Exposure: No service: No Current occupational status: employed Current occupational exposures/hazards: No Cognitive needs: No Hearing needs: No Vision needs: Yes (glasses) Review of Systems Const All systems reviewed & are unremarkable except as noted in HPI and below Physical Exam Vital Signs: Last Vital Signs Temp 98.2 F 09/29/23 14:49 Pulse 89 09/29/23 14:49 BP 118/82 09/29/23 14:49 Pulse Ox 99 09/29/23 14:49 Oxygen Delivery Method Room Air 09/29/23 14:49 BMI result Body Mass Index 28.4 General: awake, alert, oriented. Answers questions appropriately. Fully engaged in examination. Skin: warm, dry, intact HEENT: Normocephalic. Hearing intact. Cardiac: External chest normal in appearance. Respiratory: No cough, audible wheezing or stridor. Abdomen: without gross distension. Soft, nontender. No guarding. No CVA tenderness MS: No obvious swelling or deformities. Neurological: Oriented to person, place, time and situation. Thought process intact. No gait abnormalities appreciated. Psychiatric: Appropriate mood and affect. Good judgment and insight. Results AMB Urinalysis, Automated UA Leukoctes 125 Jane/uL Last Edit by Blas Mayers MA on 09/29/23 15:01 UA Nitrite Negative Last Edit by Blas Mayers MA on 09/29/23 15:01 UA Urobilinogen 0.2 mg/dL Last Edit by Blas Mayers MA on 09/29/23 15:01 UA Protein 0 mg/dL Last Edit by Blas Mayers MA on 09/29/23 15:01 UA pH 7.0 Last Edit by Blas Mayers MA on 09/29/23 15:01 UA Blood 0 Shine/uL Last Edit by Blas Mayers MA on 09/29/23 15:01 UA Specific [place] 1.015 Last Edit by Blas Mayers MA on 09/29/23 15:01 UA Ketone Negative Last Edit by Blas Mayers MA on 09/29/23 15:01 UA Bilirubin 1 mg/dL Last Edit by Blas Mayers MA on 09/29/23 15:01 UA Glucose 0 mg/dL Last Edit by Blas Mayers MA on 09/29/23 15:01 Results Reviewed Results Reviewed: UA: 2+ leuks. 1+ bilirubin Assessment & Plan Assessment & Plan (1) Dyspepsia: Code(s): R10.13 - Epigastric pain (2) UTI (urinary tract infection): Code(s): N39.0 - Urinary tract infection, site not specified Plan UA reviewed, results as per above. HCG negative Macrobid 100 mg p.o. b.i.d. x7 days Refill sent on omeprazole 20 mg p.o. daily Patient advised on red flag symptoms and when to seek treatment in the emergency room. Patient declined transfer to the ER today for evaluation. Follow up with PCP or return here for any new or worsening symptoms. Medications: New nitrofurantoin monohyd/m-cryst 100 mg (Macrobid) must administer with a meal/food 100 mg PO Q12H 7 days 14 caps 0RF Refilled omeprazole 20 mg PO DAILY 30 caps 0RF Coding Level of Care Code Est Pt Level 3 (93825) Diagnoses Dyspepsia R10.13 UTI (urinary tract infection) N39.0
== END 2023-09-29 16:15 | disposition home or self-care (01) ==
PROVIDERS: PCP Nurse Practitioner Family; Visit Provider Registered Nurse Emergency
DX: R10.13 Epigastric pain (principal); N39.0 Urinary tract infection, site not specified
CPT/HCPCS: 99213

== ENCOUNTER 2023-11-07 09:38 | Outpatient (AMB) | payer OTHER, SELFPAY ==
--- NOTE | 2023-11-07 10:23 | A.OFFPC_ITS ---
Vital Signs 11/07/23 10:27 Height 5 ft 4.57 in Weight 159 lb BMI 26.8 BP 110/58 L Blood Pressure Location Lt brachial Position Sitting Respiration 12 Pulse 73 Pulse Source Pulse Oximeter Temp 98.2 F Temp Source Oral Pulse Oximetry (%) 99 Oxygen Delivery Method Room Air Intake Visit Reasons: Re establish care/PE request/follow up Walk in Allergies amoxicillin [From Augmentin] Allergy (Mild, Verified 11/07/23 10:44) rash clavulanic acid [From Augmentin] Allergy (Mild, Verified 11/07/23 10:44) rash SEASONAL ALLERGIES Allergy (Mild, Uncoded 11/07/23 10:24) RUNNY NOSE Medication List - Last Reconciled 11/07/23 by Shayy Means, GAS REGULATOR REPAIRER HELPER- acetaminophen 1,000 mg PO Q6H PRN cholecalciferol (vitamin D3) 25 mcg PO DAILY 30 days ibuprofen 600 mg PO Q6H PRN 15 days loratadine (Allergy Relief (loratadine)) 10 mg PO DAILY PRN 90 days Tobacco use date assessed: 11/07/23 Dental Screening Dental Screen Date: 11/07/23 Did you have a dental visit in the last 12 months?: Yes Did you have a dental problem in the last 6 months where you did not have access to dental care?: No Was dental information given to patient?: Patient has dentist HPI HPI Comments History of Present Illness Details 43-year-old Tamazight-speaking female with vitamin-D deficiency, obesity, endometriosis, hydronephrosis, chronic abdominal pain, GERD, chronic constipation, benign Stable 7 mm low-attenuation lesion in the anterior segment of the right lobe of the liver, nabothian cysts status post tubal ligation laparoscopy Health maintenance Pap smear: Patient follows with [facility] obgyn Mammogram: May 2022 at [place] Tdap >> Specialists Urology Gastroenterology 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 Chief complaints today of chronic left lower quadrant pain. Was seen by GI and in the past. These consults in workups have been reviewed. Went to UC last month for the chronic pain. Was given omeprazole but did not take as this does not help Was also tx w/ AB for suspected UTI. She did complete the course. She felt constipated so she took aapg-meu-ohcdjqz laxative x 2 and had + BM Nonbloody Imaging review shows chronic constipation. She has not taking anything for maintenance at this time. Has never had a colonoscopy Tolerating po intake No vomiting Reports the pain occurs every single day. It is sporadic and short-lived. Self resolves. She is routinely managed by foil spinner at [place] for her nabothian cysts with routine imaging. 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 1. Little interest or pleasure in doing things: not at all 2. Feeling down, depressed, or hopeless: not at all 3. Trouble falling or staying asleep, or sleeping too much: not at all 4. Feeling tired or having little energy: not at all 5. Poor appetite or overeating: not at all 6. Feeling bad about yourself - or that you are a failure or have let yourself or your family down: not at all 7. Trouble concentrating on things, such as reading the newspaper or watching t elevision: not at all 8. Moving or speaking so slowly that other people could have noticed. Or the opposite - being so fidgety or restless that you have been moving around a lot more than usual: not at all 9. Thoughts that you would be better off or of hurting yourself in some way: not at all Total score: 0 Depression Screening Interpretation: Negative Depression Screening Done: Yes 10823 - PHQ-9 Billing: Yes Source: Developed by Drs. Dayne Arauz, Chintan Philip and colleagues, with an educational yeni from [employer]. Thrive Questionnaire Date Thrive assessed: 11/07/23 I am a: Patient What is your living situation today?: I have a steady place to live Within the past 12 months, did the food you bought not last and you didn't have the money to get more?: Never true Within the past 12 months, did you worry whether your food would run out before you got money to buy more?: Never true Do you have trouble paying for medicines?: No Do you have trouble getting transportation to medical appointments?: No Do you have trouble paying your heating and electricity bill?: No Do you have trouble taking care of your child, family member or friend?: No Do you have trouble with day-to-day activities such as bathing, preparing meals, shopping, managing finances, etc.?: No Are you currently unemployed and looking for a job?: No Are you interested in more education?: No Please select the resources that you would like help with: None THRIVE Score: 0 AUDIT C Alcohol Use Questionnaire (AUDIT-C) 1. How often do you have a drink containing alcohol?: Never 3. How often do you have six or more drinks on one occasion?: Never Total Score: 0 Score Reviewed/Action Taken: Yes OZZIE-7 AMB Questionnaire OZZIE-7 Date OZZIE - 7 assessed: 11/07/23 Feeling nervous, anxious, or on edge: 0 = Not at all Not being able to stop or control worryin = Not at all Worrying too much about different things: 0 = Not at all Trouble relaxin = Not at all Being so restless that it is hard to sit still: 0 = Not at all Becoming easily annoyed or irritable: 0 = Not at all Feeling afraid as if something awful might happen: 0 = Not at all Total OZZIE-7 score (0-4 normal; 5-9 mild; 10-14 moderate; 15-21 severe): 0 Source: Developed by Drs. Dayne Arauz, Chintan Philip and colleagues, with an educational yeni from [employer]. OZZIE-7 Assessment Billing OZZIE-7 Assessment Tool: OZZIE-7 Assessment 68377 Review of Systems Const All systems reviewed & are unremarkable except as noted in HPI and below Physical exam (Primary Care) Vital Signs: Last Vital Signs Temp 98.2 F 11/07/23 10:27 Pulse 73 11/07/23 10:27 Resp 12 11/07/23 10:27 BP 110/58 L 11/07/23 10:27 Pulse Ox 99 11/07/23 10:27 Oxygen Delivery Method Room Air 11/07/23 10:27 BMI result Body Mass Index 26.8 Tobacco/Smoking Status: Tobacco use Status Tobacco use date assessed 11/07/23 11/07/23 10:28 Patient Tobacco Use Status Never used Tobacco 11/07/23 10:28 e-Cigarette/Vaping Use Never Used 11/07/23 10:28 Depression Screening Interpretation: Negative Thrive Assessment: Date of Thrive Assessment Date Thrive assessed 01/21/23 11/07/23 10:28 Const Other: awake alert oriented, pleasant scleras nonicteric bilat MMM RRR LS CTAB No CVAT bilat Abd soft, hypoactive bs x 4, mild pain w/ palp LLQ w/o rebound otherwise negative exam Assessment and Plan Assessment & Plan (1) Vitamin D deficiency: Code(s): E55.9 - Vitamin D deficiency, unspecified (2) Chronic LLQ pain: Code(s): R10.32 - Left lower quadrant pain; G89.29 - Other chronic pain Plan: This note is constructed using voice recognition software. While every effort has been made to ensure accuracy in specialist employee labor relations, still errors may have been included Sometimes, these errors may affect the content or meaning of the given sentence . Total time spent caring for the patient today was 43 minutes. This includes time spent before the visit reviewing the chart, time spent during the visit, and time spent after the visit on documentation Orders: Orders Hepatitis A,B,C Profile Today E55.9 - Vitamin D deficiency, unspecified, G89.29 - Other chronic pain, R10.32 - Left lower quadrant pain Comprehensive Met. Panel Today E55.9 - Vitamin D deficiency, unspecified, G89.29 - Other chronic pain, R10.32 - Left lower quadrant pain Vitamin B12 and Folate Today E55.9 - Vitamin D deficiency, unspecified, G89.29 - Other chronic pain, R10.32 - Left lower quadrant pain Microalbumin, Random (w Creat) Today E55.9 - Vitamin D deficiency, unspecified, G89.29 - Other chronic pain, R10.32 - Left lower quadrant pain Complete Blood Count no Diff Today E55.9 - Vitamin D deficiency, unspecified, G89.29 - Other chronic pain, R10.32 - Left lower quadrant pain H pylori Ag Stool Today E55.9 - Vitamin D deficiency, unspecified, G89.29 - Other chronic pain, R10.32 - Left lower quadrant pain Amylase Today E55.9 - Vitamin D deficiency, unspecified, G89.29 - Other chronic pain, R10.32 - Left lower quadrant pain Lipase Today E55.9 - Vitamin D deficiency, unspecified, G89.29 - Other chronic pain, R10.32 - Left lower quadrant pain Hemoglobin A1c Today E55.9 - Vitamin D deficiency, unspecified, G89.29 - Other chronic pain, R10.32 - Left lower quadrant pain Vitamin D 25-OH Total Today E55.9 - Vitamin D deficiency, unspecified, G89.29 - Other chronic pain, R10.32 - Left lower quadrant pain TSH reflex Free T4 Today E55.9 - Vitamin D deficiency, unspecified, G89.29 - Other chronic pain, R10.32 - Left lower quadrant pain Medications: New sennosides (senna) hold for diarrhea or loose stools 8.6 mg PO BEDTIME 90 caps 0RF Patient Instructions: Plan Labs today. Start senna 1 tab daily at bedtime to help treat chronic constipation. Hold for loose stools. Return to the office in about 2 weeks to discuss the lab results. If the lab results are negative my next recommendation would be to refer to GI to consider a colonoscopy. Walk-In Care (Urgent Care): We Make it Easy Walk-in for urgent medical issues such as: ? Seasonal Allergies ? Insect Bites ? Cough ? Diarrhea ? Acute Asthma Attacks ? Back, Knee or Joint Pain ? Ear Infection ? Fever without a Rash ? Headaches ? Nausea ? [place] Eye, Rash or Skin Irritation ? Sore Throat ? Sports Physicals ? Vomiting Most insurances are accepted. Patients do not need to be part of the [facility] to seek care at the walk-in clinic. Locations [address] [facility] , [place] [address] ? [phone] [facility] Walk-In Care in [place] provides services to ages 18 and over. Open Friday-Friday: 8 a.m. to 5 p.m. and Friday: 9 a.m. to 3 p.m.* *Hours may vary due to staffing availability. To confirm Walk-In Care hours in [place], please call [phone]. [address] [place] [address] ? [phone] [facility] Walk-In Care in [place] provides services to ages 12 and over. Open Friday-Friday: 8 a.m. to 5 p.m. Hours may vary due to staffing availability. To confirm Walk-In Care hours in [place], please call [phone]. LABORATORY SERVICES: [facility] ? Primary Location [address] [place] [address] Friday through Friday 6:00 AM ? 5:00 PM Friday 7:00 AM ? 11:00 AM* [phone] The [facility] is centrally located near the front entrance of the [facility] for easy outpatient access. Convenient parking is provided for outpatients. *Hours may vary due to staffing availability. To confirm Laboratory hours for any location, please call [phone]. Offsite Location For your convenience, we offer offsite laboratory draw stations at the following locations: [address] [place] [address] ? [address], [address] Friday through Friday 7:30 AM ? 1:00 PM* [phone] *Hours may vary due to staffing availability. To confirm Laboratory hours for any location, please call [phone]. [place] ? [address] Friday through Friday 6:00 AM ? 3:30 PM* Friday 6:30 AM ? 3 PM* [phone] *Hours may vary due to staffing availability. To confirm Laboratory hours for any location, please call [phone] [place] [address] Friday through Friday 7:30 AM ? 4:00 PM* [phone] *Hours may vary due to staffing availability. To confirm Laboratory hours for any location, please call [phone] [place] [address] Friday through 9:00 AM ? 4:00 PM* *Hours may vary due to staffing availability. To confirm Laboratory hours for any location, please call [phone]. Appointments are not necessary. Walk-ins are welcome. Like all the departments throughout the [facility], our Lab undergoes frequent reviews to ensure the quality and accuracy of test results, and our staff takes special pride in its status as a nationally accredited facility. Patient Portal: ONE PATIENT. ONE RECORD. BETTER CARE. [facility] has a fully integrated, cutting- edge mobile electronic health information system that has revolutionized the way we care for our patients and manage our organization. This system improves communication and coordination enabling us to provide safe, higher-quality care, and an overall positive experience for staff and patients. Our first priority, as always, is to deliver the highest quality care possible. The system is running in the background supporting that priority. This portal is for all [facility] services and practices. If you are experiencing any technical difficulties with enrolling or logging into the Patient Portal please complete the [facility] Patient Portal Technical Support Form. [facility] now offers a new secure on-line interactive tool for patients to review their health information ? ?Patient Portal. This interactive web portal will enable patients and their families to take an active role in their care by providing easy, secure access to their health information via the internet. The Patient Portal provides patients with instant access to their health information, including laboratory results, medications, allergies, demographic information, visit history, and more. In addition to managing their own care, parents and health care proxies with authorized consent will appreciate the ability to access the records of those individuals for whom they provide care. Please note: if you wish to gain access (Proxy) to another patient?s portal, you will be required to come to the Medical Records Department in person at [facility]. Both the patient giving proxy access and the proxy will need to provide photo identification and complete the appropriate authorization. The Patient Portal also allows track their appointments online. The [facility] Patient Portal also saves patients time by allowing them to submit updates to their demographic and contact information prior to their visits. Portal email notifications will also alert patients to any new activity on their portal, such as test results and new appointments. In order to initially enroll in the [facility] Patient Portal, you will need to enter some required information including the following: * your [facility] Medical Record number * your personal home email address * name * date of Please note: In order to enroll in the [facility] Patient Portal, we need to have your email address on file in your electronic medical record. ?The email address needs to be specific for one person (yourself) in order for your Portal enrollment to be successful. ?You can update your email address in person with our Registration staff when you are registering for a hospital visit. ?Otherwise, you will need to come to the Health Information Management (Medical Records) Department at [facility]. ?We are open from Friday ? Friday from 7:30 a.m. ? 4:30 p.m. ?You will be required to present a photo id. Once you have successfully enrolled in the Patient Portal, you will receive a one-time user id and password for the Portal, sent to your email address. ?This will allow you to log into the Patient Portal within 99 hrs and reset your own logon id and password, and define personal security questions. ?Once your permanent login and password have been set, you can log into the [facility] Patient Portal at any time via the blue button above or from the Portal Logon button on any page of the [facility] website. [facility] encourage all of our patients to enroll in Patient Portal as it presents a valuable opportunity for patients and their families to actively participate in their care and stay healthy Welcome to [facility]. ?We look forward to working with you. Review Declined TDap/Td: 11/07/23 Coding Level of Care Code Est Pt Level 5 (12916) Diagnoses Vitamin D deficiency E55.9 Chronic LLQ pain R10.32; G89.29 Additional Codes OZZIE-7 Assessment Billing - OZZIE-7 Assessment Tool: OZZIE-7 Assessment 23105 ([id number])
[2023-11-07 10:27] VITALS: BP 110/58; PULSE 73; RESP 12; TEMP 36.8; O2SAT 99; BMI 26.8
== END 2023-11-07 11:11 | disposition home or self-care (01) ==
PROVIDERS: PCP Nurse Practitioner Family; Visit Provider Nurse Practitioner Family
DX: E55.9 Vitamin D deficiency, unspecified (principal); R10.32 Left lower quadrant pain; G89.29 Other chronic pain
CPT/HCPCS: 99215

== ENCOUNTER 2023-11-07 10:57 | Outpatient (REF) | payer OTHER, SELFPAY ==
[2023-11-07 14:48] LABS: Hematocrit 37.9 % (37.0-47.0); Hemoglobin 12.3 g/dl (12.0-16.0); Mean Corpuscular HGB Conc 32.5 g/dl (31.0-35.0); Mean Corpuscular Hemoglobin 25.7 pg (27.0-33.0); Mean Corpuscular Volume 79.3 fL (80.0-98.0); Mean Platelet Volume 9.9 fL (9.4-12.3); Platelet Count 292 X10*3/uL (160-400); Red Blood Count 4.78 X10*6/uL (4.20-5.50); Red Cell Distribution Width 15.4 % (11.0-16.0); White Blood Count 5.4 X10*3/uL (4.8-10.8)
[2023-11-07 15:04] LABS: Estimated Average Glucose 114 mg/dL; Hemoglobin A1c % 5.6 % (<6.0)
[2023-11-07 15:12] LABS: Creatinine Urine 62.69 mg/dL; Microalbumin Urine < 5.0 mg/L
[2023-11-07 15:12] LABS: Alanine Aminotransferase 15 U/L (0-31); Albumin Level 4.2 g/dL (3.5-5.0); Alkaline Phosphatase 70 U/L (39-117); Anion Gap 8 (12-20); Aspartate Amino Transferase 16 U/L (5-31); Bilirubin Total 0.3 mg/dL (0.0-1.0); Blood Urea Nitrogen 7 mg/dL (9-16); Calcium 9.7 mg/dL (8.4-10.2); Carbon Dioxide 27 mmol/L (22-29); Chloride 108 mmol/L (96-108); Estimated Glomerular Filt Rate > 60; Glucose Random 101 mg/dL (60-115); Lipase 49 U/L (8-78); Potassium 3.4 mmol/L (3.3-5.1); Sodium 140 mmol/L (135-145); Total Protein 7.6 g/dL (6.5-8.0)
[2023-11-07 15:35] LABS: TSH reflex Free T4 2.64 uIU/mL (0.32-4.0); Vitamin D 25-OH Total 35.4 ng/mL (>30)
[2023-11-07 15:36] LABS: Vitamin B12 248 pg/mL (200-900)
[2023-11-07 15:42] LABS: Amylase 65 U/L (28-100)
[2023-11-10 03:52] LABS: HBS Num1 7.55 mIU/mL (0-7.99); HBc Num1 0.08 S/CO (0.00-0.79); HBsAGNum1 0.39 S/CO (0.00-0.99); Hepatitis A Antibody IgM 0.16 Index (0-0.79); Hepatitis B Core Antibody Nonreactive (Nonreactive); Hepatitis B Surface Antigen Negative (Negative); ~HepC Num1 0.13 S/CO (0.00-0.79); ~Hepatitis A Antibody IgM Nonreactive (Nonreactive); ~Hepatitis B Surface Antibody NONREACTIVE (Nonreactive); ~Hepatitis C Antibody Nonreactive (Nonreactive)
== END 2023-11-07 10:58 | disposition home or self-care (01) ==
LOC: HO.WFDLDS 10:57
PROVIDERS: Visit Provider Nurse Practitioner Family
DX: E55.9 Vitamin D deficiency, unspecified (principal); R10.32 Left lower quadrant pain; G89.29 Other chronic pain; Z13.1 Encounter for screening for diabetes mellitus; Z13.29 Encounter for screening for other suspected endocrine disorder
CPT/HCPCS: 36415; 80053; 82043; 82150; 82306; 82570; 82607; 82746; 83036; 83690; 84443; 85027; 86704; 86706; 86709; 86803; 87340

== ENCOUNTER 2023-11-19 11:41 | Outpatient (REF) | payer OTHER, SELFPAY | END 2023-11-19 11:42 | disposition home or self-care (01) | LOC: HO.LNP 11:41 | PROVIDERS: Visit Provider Nurse Practitioner Family | DX: E55.9 Vitamin D deficiency, unspecified (principal); R10.32 Left lower quadrant pain; G89.29 Other chronic pain | CPT/HCPCS: 87338 ==

== ENCOUNTER 2023-11-25 09:14 | Outpatient (AMB) | payer OTHER, SELFPAY ==
--- NOTE | 2023-11-25 09:17 | A.OFFPC_ITS ---
Vital Signs 11/25/23 09:18 Height 5 ft 4.57 in Weight 159 lb 4 oz BMI 26.9 BP 110/74 Blood Pressure Location Rt brachial Position Sitting Respiration 14 Pulse 75 Pulse Source Pulse Oximeter Temp 97.7 F Temp Source Temporal Artery Scan Pulse Oximetry (%) 99 Oxygen Delivery Method Room Air Intake Visit Reasons: 2 weeks 30 min FU labs, constipation, LLQ pain Tie Tamper Required: No Accompanied by: Self / Same As Patient Allergies amoxicillin [From Augmentin] Allergy (Mild, Verified 11/25/23 09:41) rash clavulanic acid [From Augmentin] Allergy (Mild, Verified 11/25/23 09:41) rash SEASONAL ALLERGIES Allergy (Mild, Uncoded 11/07/23 10:24) RUNNY NOSE Medication List - Last Reconciled 11/25/23 by Shayy Means, TRUCK DOCK MATERIAL MOVER- acetaminophen 1,000 mg PO Q6H PRN cholecalciferol (vitamin D3) 25 mcg PO DAILY 30 days ibuprofen 600 mg PO Q6H PRN 15 days loratadine (Allergy Relief (loratadine)) 10 mg PO DAILY PRN 90 days sennosides (senna) 8.6 mg PO BEDTIME Tobacco use date assessed: 11/07/23 Dental Screening Dental Screen Date: 11/07/23 HPI HPI Comments History of Present Illness Details 43-year-old Cook Islander-speaking female with vitamin-D deficiency, obesity, endometriosis, hydronephrosis, chronic abdominal pain, GERD, chronic constipation, benign Stable 7 mm low-attenuation lesion in the anterior segment of the right lobe of the liver, nabothian cysts, H pylori status post tubal ligation laparoscopy Health maintenance Pap smear: Patient follows with [facility] obgyn Mammogram: May 2022 at [place] Tdap >> Specialists Urology Gastroenterology Here today to follow up on lab results and stool sample done to evaluate the cause of acute on chronic abdominal pain. The labs were reviewed with her today in detail. The positive finding of H. pylori was discussed. She reports that she has low back pain when bending and squatting to clean. It comes and goes. When she stands from squatting the pain is there. She has not sure if this is anything to do with her abdominal symptoms or not. Plan Treat with triple therapy of omeprazole, clarithromycin and metronidazole for 14 days. Educated on ETOH use and metronidazole. Advised to hold off on starting senna until she completes his therapy. Start only if needed for constipation Check a stool for eradication 30 days after completion of treatment which will be around January 08. Return to office at the end of December to follow up on the results. If low back pain continues at this time we will need to evaluate a cause. If her stool for H pylori comes back positive we will refer to GI to consider an EGD. 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 Dayne Arauz, Toshia Meehan, Chintan Paige and colleagues, with an educational yeni from [employer]. Physical exam (Primary Care) Vital Signs: Last Vital Signs Temp 97.7 F 11/25/23 09:18 Pulse 75 11/25/23 09:18 Resp 14 11/25/23 09:18 BP 110/74 11/25/23 09:18 Pulse Ox 99 11/25/23 09:18 Oxygen Delivery Method Room Air 11/25/23 09:18 BMI result Body Mass Index 26.9 Tobacco/Smoking Status: Tobacco use Status Tobacco use date assessed 11/07/23 11/25/23 09:22 Patient Tobacco Use Status Never used Tobacco 11/25/23 09:22 e-Cigarette/Vaping Use Never Used 11/25/23 09:22 Thrive Assessment: Date of Thrive Assessment Date Thrive assessed 11/07/23 11/25/23 09:22 Assessment and Plan Assessment & Plan (1) H. pylori infection: Code(s): A04.8 - Other specified bacterial intestinal infections (2) Low back pain: Code(s): M54.50 - Low back pain, unspecified Qualifiers: Chronicity: chronic Back pain laterality: bilateral Sciatica presence: without sciatica Qualified Code(s): M54.50 - Low back pain, unspecified; G89.29 - Other chronic pain (3) Chronic constipation: Code(s): K59.09 - Other constipation Plan This note is constructed using voice recognition software. While every effort has been made to ensure accuracy in work ticket distributor, still errors may have been included Sometimes, these errors may affect the content or meaning of the given sentence . Total time spent caring for the patient today was 30 minutes. This includes time spent before the visit reviewing the chart, time spent during the visit, and time spent after the visit on documentation Orders: Orders H pylori Ag Stool 01/09/24 A04.8 - Other specified bacterial intestinal infections Medications: New omeprazole 40 mg PO BID 28 caps 0RF clarithromycin 500 mg PO BID 28 tabs 0RF metronidazole 500 mg PO Q12H 28 tabs 0RF Patient Instructions: Plan Treat with triple therapy of omeprazole, clarithromycin and metronidazole for 14 days. Educated on ETOH use and metronidazole. Advised to hold off on starting senna until she completes his therapy. Start only if needed for constipation Check a stool for eradication 30 days after completion of treatment which will be around January 08. Return to office at the end of December to follow up on the results. If low back pain continues at this time we will need to evaluate a cause. If her stool for H pylori comes back positive we will refer to GI to consider an EGD. Coding Level of Care Code Est Pt Level 4 (58025) Diagnoses H. pylori infection A04.8 Chronic bilateral low back pain without sciatica M54.50; G89.29 Chronicity: chronic Back pain laterality: bilateral Sciatica presence: without sciatica Chronic constipation K59.09
[2023-11-25 09:18] VITALS: BP 110/74; PULSE 75; RESP 14; TEMP 36.5; O2SAT 99; BMI 26.9
== END 2023-11-25 09:56 | disposition home or self-care (01) ==
PROVIDERS: PCP Nurse Practitioner Family; Visit Provider Nurse Practitioner Family
DX: A04.8 Other specified bacterial intestinal infections (principal); M54.50 Low back pain, unspecified; G89.29 Other chronic pain; K59.09 Other constipation
CPT/HCPCS: 99214

== ENCOUNTER 2024-01-13 15:28 | Outpatient (REF) | payer OTHER, SELFPAY | END 2024-01-13 15:29 | disposition home or self-care (01) | LOC: HO.LNP 15:28 | PROVIDERS: Visit Provider Nurse Practitioner Family | DX: A04.8 Other specified bacterial intestinal infections (principal) | CPT/HCPCS: 87338 ==

== ENCOUNTER 2024-01-21 09:13 | Outpatient (AMB) | payer OTHER, SELFPAY ==
--- NOTE | 2024-01-21 09:52 | A.OFFPC_ITS ---
Vital Signs 01/21/24 09:53 Height 5 ft 4 in Weight 158 lb 8 oz BMI 27.2 BP 130/66 Blood Pressure Location Rt brachial Position Sitting Pulse 75 Pulse Source Pulse Oximeter Pulse Oximetry (%) 99 Oxygen Delivery Method Room Air Intake Visit Reasons: end dec f/u H Pylori eradi and Low back pain Intake Note: Patient is here to follow up on H.Pylori, low back pain. Special Effects Technician Required: No Battery Charger Tester: Not Required per policy Accompanied by: Self / Same As Patient Allergies amoxicillin [From Augmentin] Allergy (Mild, Verified 01/21/24 10:28) rash clavulanic acid [From Augmentin] Allergy (Mild, Verified 01/21/24 10:28) rash SEASONAL ALLERGIES Allergy (Mild, Uncoded 01/21/24 09:53) RUNNY NOSE Medication List - Last Reconciled 01/21/24 by LAVERNE Wilkinson-JOEL acetaminophen 1,000 mg PO Q6H PRN cholecalciferol (vitamin D3) (Vitamin D3) 25 mcg PO DAILY ibuprofen 600 mg PO Q6H PRN 15 days loratadine (Allergy Relief (loratadine)) 10 mg PO DAILY PRN 90 days sennosides (senna) 8.6 mg PO BEDTIME Tobacco use date assessed: 01/21/24 Dental Screening Dental Screen Date: 11/07/23 HPI HPI Comments History of Present Illness0 Details 43-year-old Czech-speaking female with vitamin-D deficiency, obesity, endometriosis, hydronephrosis, chronic abdominal pain, GERD, chronic constipa tion, benign Stable 7 mm low-attenuation lesion in the anterior segment of the right lobe of the liver, nabothian cysts, H Pylori status post tubal ligation laparoscopy Health maintenance Pap smear: Patient [facility] with [facility] Mammogram: May 2022 at [facility] Declined today. [facility] Here today to follow up on H. pylori and lower back pain. Completed H Pylori tx w/ irradication. Cont to feel constipated. Did not yet start senna as directed to wait until results. Admits straining and causing hemorrhoids. Having some left upper quadrant pain along with right lower quadrant pain that comes and goes. Cont to have pain in back w/ bending and lifting w/o change. Wonders if from prolonged sitting; trying to crack her back and stretch w/o relief. Worse on the right side. Denies any red flag signs or symptoms related to back pain. Continues to take ibuprofen or other NSAIDs with some relief. Exam: Awake alert oriented, no acute distress Scleras are nonicteric bilat Mucous membranes moist Abdomen with normoactive bowel sounds x4, mild tenderness in right lower quad without rebound, soft Straight leg raise negative bilat, normal strength and reflexes in bilateral lower extremities, pain over right SI joint with palpation, no spinal tenderness. Plan H. pylori cured status post therapy. For her constipation, advised to use senna 1-2 tablets at bedtime. If constipation continues, we will need to think about adding something like MiraLax to her regimen. In regards to her back pain, I have advised her to stop using [id number] NSAIDs. I have sent in a prescription for Celebrex 100 mg to be taken as needed once daily with food. Also discuss referral to physical therapy versus chiropractic medicine. She would like to consult with chiropractic medicine at this time. I would like to see her back in about 4 weeks to follow up on her constipation along with her lower back pain, sooner as needed. This note is constructed using voice recognition software. While every effort has been made to ensure accuracy in dermatology physician, still errors may have been included Sometimes, these errors may affect the content or meaning of the given sentence . Total time spent caring for the patient today was 30 minutes. This includes time spent before the visit reviewing the chart, time spent during the visit, and time spent after the visit on documentation [facility] Medical History Gastroenteritis due to norovirus Hydronephrosis Otitis media Overweight History of endometriosis Surgical History History of tubal ligation H/O laparoscopy Family History Father Diabetes Mother Hypertension Maternal Aunt Cancer Family/Other Cancer Social History Housing: House Alcohol intake: never Patient Tobacco Use Status: Never used Tobacco e-Cigarette/Vaping Use: Never Used Second Hand Smoke Exposure: No service: No Current occupational status: employed 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 Dayne Arauz, Toshia Meehan, Chintan Paige and colleagues, with an educational yeni from [employer]. Physical exam (Primary Care) Vital Signs: Last Vital Signs Pulse 75 01/21/24 09:53 BP 130/66 01/21/24 09:53 Pulse Ox 99 01/21/24 09:53 Oxygen Delivery Method Room Air 01/21/24 09:53 BMI result Body Mass Index 27.2 Tobacco/Smoking Status: Tobacco use Status Tobacco use date assessed 01/21/24 01/21/24 09:58 Patient Tobacco Use Status Never used Tobacco 01/21/24 09:58 e-Cigarette/Vaping Use Never Used 01/21/24 09:58 Thrive Assessment: Date of Thrive Assessment Date Thrive assessed 11/07/23 01/21/24 09:58 Results Reviewed Results Reviewed: RUN: 01/21/24 0734 PAGE 1 [facility] [address] [place] [id number] Harbor Master: Magdy Paula M.D. Specimen Inquiry Name: Marcel Pattno Age/Sex: 43/F : 1980 Unit#: [id number] Attend Dr: Shayy Means PUBLIC SAFETY TELECOMMUNICATOR-BC Re01/13/24 Status: DEP REF Location: [facility] Disch: SPEC : [id number] MOUNA: 01/13/245066 STATUS: COMP REQ : [id number] RECD: 01/13/24-[address]: Shayy Means PUBLIC SAFETY TELECOMMUNICATOR- COMP: 01/15/24 ENTERED: 01/13/[address] [facility] [address]: ORDERED: H pylori Ag St Test Result Flag Reference H pylori Ag St SEE NOTE HELICOBACTER PYLORI AG, EIA, STOOL Micro Number: [id number] Test Status: Final Specimen Source: Stool Specimen Quality: Adequate H.pylori Ag: Not Detected Antimicrobials, proton pump inhibitors, and bismuth preparations inhibit H. pylori and ingestion up to two weeks prior to testing may cause false negative results. If clinically indicated the test should be repeated on a new specimen obtained two weeks after discontinuing treatment. Reference Range: Not Detected THIS TEST WAS PERFORMED AT: [email or web address] [address] [place] [phone] BAILEE ECHOLS MD END OF REPORT Assessment and Plan Assessment & Plan (1) Lower back pain: Code(s): M54.50 - Low back pain, unspecified Qualifiers: Chronicity: chronic Back pain laterality: right Sciatica presence: without sciatica Qualified Code(s): M54.50 - Low back pain, unspecified; G89.29 - Other chronic pain (2) H. pylori infection: Comment: Resolved. Code(s): A04.8 - Other specified bacterial intestinal infections (3) Chronic constipation: Code(s): K59.09 - Other constipation (4) Chronic abdominal pain: Code(s): R10.9 - Unspecified abdominal pain; G89.29 - Other chronic pain Orders: Referrals Chiropractic Referral M54.50 - Low back pain, unspecified Medications: New celecoxib 100 mg PO DAILY PRN 30 caps 1RF pain Discontinued ibuprofen Discontinued Reason: Doctor's Order 600 mg PO Q6H 15 days PRN 30 tabs 0RF pain R07.89 - Other chest pain Coding Level of Care Code Est Pt Level 4 (09003) Diagnoses Chronic right-sided low back pain without sciatica M54.50; G89.29 Chronicity: chronic Back pain laterality: right Sciatica presence: without sciatica H. pylori infection A04.8 Chronic constipation K59.09 Chronic abdominal pain R10.9; G89.29
[2024-01-21 09:53] VITALS: BP 130/66; PULSE 75; O2SAT 99; BMI 27.2
== END 2024-01-21 10:41 | disposition home or self-care (01) ==
PROVIDERS: PCP Nurse Practitioner Family; Visit Provider Nurse Practitioner Family
DX: M54.50 Low back pain, unspecified (principal); G89.29 Other chronic pain; A04.8 Other specified bacterial intestinal infections; K59.09 Other constipation; R10.9 Unspecified abdominal pain
CPT/HCPCS: 99214

== ENCOUNTER 2024-02-10 12:43 | Outpatient (AMB) | payer OTHER, SELFPAY ==
--- NOTE | 2024-02-10 12:57 | MHC.OFFWIV ---
Intake Vital Signs 02/10/24 12:59 Height 5 ft 4 in Weight 158 lb BMI 27.1 BP 120/84 Blood Pressure Location Lt brachial Position Sitting Pulse 76 Pulse Source Pulse Oximeter Pulse Oximetry (%) 98 Oxygen Delivery Method Room Air Intake Visit Reasons: EP cough, chest tightness Intake Note: Patient here for runny nose, cough, chest congestion and slight wheezing. Patient Tobacco Use Status: Never used Tobacco Allergies amoxicillin [From Augmentin] Allergy (Mild, Verified 02/10/24 13:00) rash clavulanic acid [From Augmentin] Allergy (Mild, Verified 02/10/24 13:00) rash SEASONAL ALLERGIES Allergy (Mild, Uncoded 02/10/24 13:00) RUNNY NOSE Do you need a note to return to daycare/school/sports/work: Yes HPI HPI Comments History of Present Illness Details Patient is a 43-year-old female complaining of 7 days of a runny nose, cough, chest congestion, shortness of breath with exertion and slight wheezing. She denies any fevers, nausea vomiting diarrhea. She denies a history of asthma but states she has been prescribed an inhaler in the past but has not used it in many years. She has been taking Tylenol cold and flu as well as making her own elixer of assiniboine and sioux and honey and drinking hot tea. She states she has tested for COVID several times at home and she has been negative each time. She tells me that she was going up and down her basement stairs 3 times in a row which typically she could manage with no problem but this past weekend, it did give her some shortness of breath. She denies any sick contacts. 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 Current occupational exposures/hazards: No Cognitive needs: No Hearing needs: No Vision needs: No (glasses) Review of Systems Const All systems reviewed & are unremarkable except as noted in HPI and below Physical Exam Vital Signs: Last Vital Signs Pulse 76 02/10/24 12:59 BP 120/84 02/10/24 12:59 Pulse Ox 98 02/10/24 12:59 Oxygen Delivery Method Room Air 02/10/24 12:59 BMI result Body Mass Index 27.1 Const General: cooperative, healthy appearing, comfortable and no acute distress Orientation/consciousness: patient oriented x3 Limitations: no limitations HEENT Head: Yes normal to inspection Ears: hearing grossly normal bilaterally, external ears normal and TM's normal bilaterally General nose exam: Normal external nose present, Normal nares present and No nasal discharge present Face and sinus: Yes normal facial exam and Yes sinuses nontender Mouth: Normal oral and palatal mucosa present and moist mucous membranes Throat: Yes tonsils normal, Yes uvula midline and Yes posterior oropharynx abnormal (Erythema) Eyes General: appearance normal, both eyes and all related structures Neck Neck: Yes normal visual inspection Resp Effort & Inspection: normal respiratory effort, able to speak in complete sentences, no respiratory distress, not tachypneic, no tripod positioning and no use of accessory muscles Auscultation: clear to auscultation bilaterally Cardio Rate: regular rate Rhythm: regular rhythm Heart sounds: normal S1 and S2 Skin General skin exam: no rashes or lesions noted Neuro General: patient oriented x3 Extrem General: Yes normal to inspection and Yes no clubbing, cyanosis or edema Assessment & Plan Assessment & Plan (1) Upper respiratory tract infection: Code(s): J06.9 - Acute upper respiratory infection, unspecified Plan: Vital signs stable, patient is well-appearing and lungs are clear. We will prescribe an inhaler to use as needed. As it has been 7 days of a cough, if her COVID is negative, I will prescribe an antibiotic tomorrow, patient is allergic to Augmentin, so I will use a Z-Dread Plan See above Medications: New albuterol sulfate 90 mcg/actuation (Ventolin HFA) 2 puffs inhalation Q4-6H PRN 8.5 grams 0RF shortness of breath or wheezing Coding Level of Care Code Est Pt Level 3 (44924) Diagnoses Upper respiratory tract infection J06.9
[2024-02-10 12:59] VITALS: BP 120/84; PULSE 76; O2SAT 98; BMI 27.1
== END 2024-02-10 13:38 | disposition home or self-care (01) ==
PROVIDERS: PCP Nurse Practitioner Family; Visit Provider Physician Assistant
DX: J06.9 Acute upper respiratory infection, unspecified (principal)

== ENCOUNTER 2024-02-10 12:43 | Outpatient (REF) | payer OTHER, SELFPAY ==
[2024-02-10 19:07] LABS: Influenza A PCR NEGATIVE (Negative); Influenza B PCR NEGATIVE (Negative); Resp Syncy Virus RNA Qual PCR NEGATIVE (Negative); SARS COV2 PCR INHOUSE NEGATIVE (Negative)
== END 2024-02-10 12:44 | disposition home or self-care (01) ==
LOC: HO.LAB 12:43
PROVIDERS: Physician Assistant; PCP Nurse Practitioner Family
DX: J06.9 Acute upper respiratory infection, unspecified (principal)
CPT/HCPCS: 0241U

== ENCOUNTER 2024-07-05 12:35 | Outpatient (AMB) | payer OTHER, SELFPAY ==
[2024-07-05 12:58] VITALS: BP 118/84; PULSE 82; TEMP 36.7; O2SAT 98; BMI 27.1
--- NOTE | 2024-07-05 12:58 | MHC.PC.OV ---
Vital Signs 07/05/24 12:58 Height 5 ft 4 in Weight 158 lb BMI 27.1 BP 118/84 Blood Pressure Location Rt brachial Position Sitting Pulse 82 Pulse Source Pulse Oximeter Temp 98.0 F Temp Source Oral Pulse Oximetry (%) 98 Oxygen Delivery Method Room Air Intake Visit Reasons: pain on left side abdomen & back pain Allergies amoxicillin [From Augmentin] Allergy (Mild, Verified 07/05/24 12:58) rash clavulanic acid [From Augmentin] Allergy (Mild, Verified 07/05/24 12:58) rash SEASONAL ALLERGIES Allergy (Mild, Uncoded 02/10/24 13:00) RUNNY NOSE Tobacco use date assessed: 07/05/24 Dental Screening Dental Screen Date: 07/05/24 Did you have a dental visit in the last 12 months?: Yes Did you have a dental problem in the last 6 months where you did not have access to dental care?: No Was dental information given to patient?: Patient has dentist HPI HPI Comments History of Present Illness Details 44-year-old [place]er-speaking female with vitamin-D deficiency, obesity, endometriosis, hydronephrosis, chronic abdominal pain, GERD, chronic constipation, benign Stable 7 mm low-attenuation lesion in the anterior segment of the right lobe of the liver, nabothian cysts, H Pylori status post tubal ligation laparoscopy Health maintenance Pap smear: Patient follows with [facility] obgy Mammogram: May 2022 at [facility] Tdap Declined today. Specialists Urology Gastroenterology The patient is a 44-year-old female presenting with worsening abdominal and back pain, alongside concerns regarding a urinary tract infection. The patient reports the onset of symptoms approximately two weeks ago with an initial presentation of sharp abdominal pain located on the left side of the abdomen. She has been experiencing increased severity of pain, describing it as sharp and affecting her daily activities, including sleep. Initially, the patient noticed the pain occurring intermittently and thought it was related to less frequent bowel movements. However, the pain progressively worsened, radiating to the back and occasionally causing severe arm pain, notably impacting her ability to sleep comfortably. During the onset of these symptoms, the patient began experiencing dysuria, prompting her to seek care at an urgent care facility where a diagnosis of urinary tract infection was made. Treatment was initiated, and the patient obtained her test results via email, noting interim symptomatic improvement, though without complete resolution. The patient reports experiencing transient nausea without vomiting, which prompted a day off from work due to feeling unwell. She denies persistent burning during urination but notes discomfort exacerbated when sitting, describing the sensation as a pressure or grabbing feeling in the affected regions. Exam: Awake alert oriented, no acute distress Scleras are nonicteric bilat Mucous membranes moist RRR LS CTAB Abdomen with normoactive bowel sounds x4, suprapubic pain w/ palp and pain into left flank, no rebound, gaurding or rigidity. No CVAT bilat Discussion Notes I discussed with the patient the possibility of kidney involvement due to the progression and location of her symptoms. I recommended proceeding with an ultrasound to better evaluate the kidneys. I also planned to check renal function and repeat urine analysis to assess the current status of the infection. I ensured she was informed about the non-contagious nature of her condition, and we discussed options for managing her symptoms at work, including providing an excuse note if needed. I emphasized the importance of addressing her symptoms urgently to rule out complications, discussed further treatment options, and assured follow-up via the patient portal once diagnostic results were available. Additionally, we corrected her pharmacy information to ensure proper management of future prescriptions. Patient Instructions - Proceed to the front desk specialist to schedule an ultrasound, ideally to be completed today. - Follow up immediately with the hospital for blood work and ultrasound after leaving the clinic. - Continue the prescribed antibiotics unless otherwise advised following test results. - Monitor symptoms carefully and use [id number] pain relief as needed. - Avoid actions or positions that exacerbate discomfort; maintain hydration. - Await communication through the patient portal for further instructions regarding test results and subsequent treatment. Plan Given the patient's presentation of worsening abdominal and back pain, further evaluation of kidney involvement is necessary through ultrasound imaging. Continuation of follow-up urine analysis and blood work is required to assess renal function and infection status. While current antibiotic therapy is to be maintained, the need for adjustments will be determined based on upcoming test results. In the meantime, symptom management through supportive care and guidance on work readiness is important. Should test results indicate complications or require therapeutic changes, immediate communication through the patient portal will facilitate timely management adjustments. At this time, advised to cont to take cephalexin as her E coli is sensitive. Patient was informed and verbally consented to the use of an ambient scribe for clinic note documentation during this visit. Results: At the close of this note, no US or lab results avail Will fu with patient once resulted. Total time spent caring for the patient today was 45 minutes. This includes time spent before the visit reviewing the chart, time spent during the visit, and time spent after the visit on documentation, reviewing laboratory results, diagnostic imaging, medications, performing a medically necessary evaluation, counseling on diagnoses, care coordination, ordering appropriate tests, ordering appropriate medications, review of tests performed by other providers, reporting test results with the patient, communication with other healthcare providers. 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 1. Little interest or pleasure in doing things: not at all 2. Feeling down, depressed, or hopeless: not at all 3. Trouble falling or staying asleep, or sleeping too much: not at all 4. Feeling tired or having little energy: not at all 5. Poor appetite or overeating: not at all 6. Feeling bad about yourself - or that you are a failure or have let yourself or your family down: not at all 7. Trouble concentrating on things, such as reading the newspaper or watching television: not at all 8. Moving or speaking so slowly that other people could have noticed. Or the opposite - being so fidgety or restless that you have been moving around a lot more than usual: not at all 9. Thoughts that you would be better off or of hurting yourself in some way: not at all Total score: 0 Depression Screening Interpretation: Negative Depression Screening Done: Yes 49862 - PHQ-9 Billing: Yes Source: Developed by Drs. Dayne Arauz, Toshia Meehan, Chintan Paige and colleagues, with an educational yeni from [employer]. Thrive Questionnaire Date Thrive assessed: 07/05/24 I am a: Patient What is your living situation today?: I have a steady place to live Within the past 12 months, did the food you bought not last and you didn't have the money to get more?: I choose not to answer this question Within the past 12 months, did you worry whether your food would run out before you got money to buy more?: I choose not to answer this question Do you have trouble paying for medicines?: I choose not to answer this question Do you have trouble getting transportation to medical appointments?: No Do you have trouble paying your heating and electricity bill?: I choose not to answer this question Do you have trouble taking care of your child, family member or friend?: No Do you have trouble with day-to-day activities such as bathing, preparing meals, shopping, managing finances, etc.?: No Are you currently unemployed and looking for a job?: No Are you interested in more education?: No Please select the resources that you would like help with: None Currently or been in a relationship where the following occur: I choose not to answer THRIVE Score: 0 AUDIT C Alcohol Use Questionnaire (AUDIT-C) 1. How often do you have a drink containing alcohol?: Never 3. How often do you have six or more drinks on one occasion?: Never Total Score: 0 Score Reviewed/Action Taken: Yes OZZIE-7 AMB Questionnaire OZZIE-7 Date OZZIE - 7 assessed: 07/05/24 Feeling nervous, anxious, or on edge: 0 = Not at all Not being able to stop or control worryin = Not at all Worrying too much about different things: 0 = Not at all Trouble relaxin = Not at all Being so restless that it is hard to sit still: 0 = Not at all Becoming easily annoyed or irritable: 0 = Not at all Feeling afraid as if something awful might happen: 0 = Not at all Total OZZIE-7 score (0-4 normal; 5-9 mild; 10-14 moderate; 15-21 severe): 0 Source: Developed by Drs. Dayne Arauz, Toshia Meehan, Chintan Paige and colleagues, with an educational yeni from [employer]. OZZIE-7 Assessment Billing OZZIE-7 Assessment Tool: OZZIE-7 Assessment 19363 Physical exam (Primary Care) Vital Signs: Last Vital Signs Temp 98.0 F 07/05/24 12:58 Pulse 82 07/05/24 12:58 BP 118/84 07/05/24 12:58 Pulse Ox 98 07/05/24 12:58 Oxygen Delivery Method Room Air 07/05/24 12:58 BMI result Body Mass Index 27.1 Tobacco/Smoking Status: Tobacco use Status Tobacco use date assessed 01/21/24 07/05/24 13:00 Patient Tobacco Use Status Never used Tobacco 07/05/24 13:00 e-Cigarette/Vaping Use Never Used 07/05/24 13:00 Depression Screening Interpretation: Negative Thrive Assessment: Date of Thrive Assessment Date Thrive assessed 11/07/23 07/05/24 13:00 Currently or been in a relationship where the following occur: I choose not to answer Coding Level of Care Code Est Pt Level 5 (48052) Complex EM visit Add On G2211 Diagnoses Flank pain R10.9 E. coli UTI N39.0; B96.20 Additional Codes PHQ-9 - 64597 - PHQ-9 Billing: Yes ([id number]) OZZIE-7 Assessment Billing - OZZIE-7 Assessment Tool: OZZIE-7 Assessment 31831 ([id number]) Assessment & Plan Assessment & Plan (1) Flank pain: Code(s): R10.9 - Unspecified abdominal pain Category: Medical (2) E. coli UTI: Code(s): N39.0 - Urinary tract infection, site not specified; B96.20 - Unspecified Escherichia coli [E. coli] as the cause of diseases classified elsewhere Category: Medical Plan . Orders: Orders US renal BI Today B96.20 - Unspecified Escherichia coli [E. coli] as the cause of diseases classified elsewhere, N39.0 - Urinary tract infection, site not specified, R10.9 - Unspecified abdominal pain US bladder Today B96.20 - Unspecified Escherichia coli [E. coli] as the cause of diseases classified elsewhere, N39.0 - Urinary tract infection, site not specified, R10.9 - Unspecified abdominal pain Comprehensive Met. Panel Today B96.20 - Unspecified Escherichia coli [E. coli] as the cause of diseases classified elsewhere, N39.0 - Urinary tract infection, site not specified, R10.9 - Unspecified abdominal pain UA CC w/rflx Micro + Cult Today B96.20 - Unspecified Escherichia coli [E. coli] as the cause of diseases classified elsewhere, N39.0 - Urinary tract infection, site not specified, R10.9 - Unspecified abdominal pain
--- OUTSIDE RECORDS SUMMARY | 2024-07-05 13:36 | XMS_ITS | Encounter Summary ---
Author Organization [employer] Address [address] [place] [address] Care Team Providers Care Fishing Tool Supervisor Name Role Phone Aliza Cano MD Primary Care Provider [phone] Encounter Details Date Type Department Care Team ([facility] st Contact Info) Description 06/04/2024 Telephone Gastroenterology - [address] [place] [id number] Fabrizio Agee MD [address] [place] [address] Social History Tobacco Use Types Packs/Day Years Used Date Smoking Tobacco: Never Smokeless Tobacco: Never Alcohol Use Standard Drinks/Week Comments No 0 (1 standard drink = 0.6 oz pur e alcohol) Housing Instability Answer Date Recorde d Are you worried that in the next 2 months you may not have stable housing? No 04/12/2024 Food Access & Nutrition Answer Date Rec orded Do you have access to a vari ety of food including fruits and vegetables? Yes 04/12/2024 Access to Healthcare Answer Date Record ed Within the last 3 months, ho w many times did you visit the emergency department for your medical care? 0 04/12/2024 Health Literacy Answer Date Recorded How often do you need to hav e someone help you when you read instructions, pamphlets, or other written material from your doctor or pharmacy? Sometimes 04/12/2024 Caregiver: How often do you need to have someone help you when you read instructions, pamphlets, or other written material from your doctor or pharmacy? Not on file 04/12/2024 Financial Risk Answer Date Recorded How hard is it for you to pa y for the very basics like food, housing, medical care, and air conditioning / heating? Patient declined 04/12/2024 Transportation Answer Date Recorded Has the lack of transportati on kept you from meetings, work, or from getting things needed for daily living? No Has the lack of transportati on kept you from medical appointments or from getting medications? No 04/12/2024 Social Isolation Answer Date Recorded How often do you feel lonely or isolated from th ose around you? Never 04/12/2024 Food Risk Answer Date Recorded Within the past 12 months we worried whether our food would run out before we got money to buy more. Never true 04/12/2024 Within the past 12 months th e food we bought just didn't last and we didn't have money to get more. Never true 04/12/2024 Dependent Care Answer Date Recorded Do you need help finding or paying for care for your loved ones. For example, child care centre director or elderly care for an older adult? Unable to respond 04/12/2024 Education Answer Date Recorded Do you think completing more education or training, like finishing a GED, going to college, or learning a trade, would be helpful for you? Yes 04/12/2024 Employment and Income Answer Date Recor ded During the last four weeks, have you been actively looking for work? No 04/12/2024 Living Situation Answer Date Recorded What is your living situation? 1 06/12/2023 Comments No Sex and Gender Information Value Date Recorded Sex Assigned at Not on file Legal Sex Female 10:47 PM EST Gender Identity Not on file Sexual Orientation Not on file documented as of this encounter Progress Notes * Destini Watters - 06/11/2024 9:29 AM EST PATIENT IS BEING SCHEDULED FOR DIRECT COLON/EGD: Blood thinners/anemic? N Aspirin? N Heart conditions? N Diabetic? N Weight loss meds? N FIRST COLON: YES PERSONAL HX OF POLYPS: -- FAMILY HX OF POLYPS: N FAMILY HX OF CRC: N BMI: 27 * Destini Watters - 06/04/2024 10:35 AM EST NEW INTERNAL REFERRAL documented in this encounter Plan of Treatment Upcoming Encounters Date Type Department Care Team (Late st Contact Info) Description 07/19/2024 8:00 AM EST Appointment [facility] Endoscopy [address] [place] [address] Fabrizio Agee MD [address] [address] 09/08/2024 11:10 AM EDT Appointment Radiology Department - [address] [phone] documented as of this encounter Visit Diagnoses Not on filedocumented in this encounter Additional Health Concerns Assessment Noted Time PHQ-9 Depression Total Score: 0 05/30/19 25 4:31 PM EST documented as of this encounter Care Teams Fishing Tool Supervisor Relationship Specialty Start Date End Date Aliza Cano MD [address] [place] [address] PCP - General 04/01/17 documented as of this encounter
--- OUTSIDE RECORDS SUMMARY | 2024-07-05 13:36 | XMS_ITS | Clinical Summary ---
Author Organization [employer] Address [address] [place] [address] [address] [place] [address] Care Team Providers Care Entry Level Business Analyst Name Role Phone Unavailable Primary Care Provider Unavailabl e Social History Tobacco Use Types Packs/Day Years Used Date Smoking Tobacco: Never Assessed Comments Unknown Sex and Gender Information Value Date Recorded Sex Assigned at Female 03/25/2022 10:17 AM EDT Legal Sex Female 10:17 AM EDT Gender Identity Female 03/25/2022 10:17 AM EDT Sexual Orientation Straight 03/25/2022 10 :17 AM EDT Last Filed Vital Signs Vital Sign Reading Time Taken Comments Blood Pressure 126/82 07/26/2020 12:03 AM EST Pulse 75 07/26/2020 12:03 AM EST Temperature - - Respiratory Rate - - Oxygen Saturation - - Inhaled Oxygen Concentration - - Weight 68.5 kg (151 lb) 07/26/2020 12:03 AM EST Height 162.6 cm (5' 4 ) 07/26/2020 12:03 AM EST Body Mass Index 25.92 07/26/2020 12:03 AM EST Plan of Treatment Health Maintenance Due Date Last Done Comments CT Colonography 1979 Colonoscopy 1979 Colorectal Cancer Screening 1979 Depression Screening 1979 FIT DNA/Cologuard 1979 FIT 1979 FOBT 1979 HIV Screening 1979 SDOH Screening 1979 Sigmoidoscopy 1979 Alcohol/Substance Use Screening 1991 Tobacco Screening 1991 Family Planning (PISQ) 1994 Hepatitis C Screening 1997 DTaP/Tdap/Td Vaccines (1 - Tdap) 1998 Hepatitis B Vaccines (1 of 3 - 19+ 3-dose series) 1998 Pap Smear 2000 Cervical Cancer Screening 2009 HPV/Cotest 2009 Mammogram 2019 COVID-19 Vaccine (3 - 2023-2 5 season) 2024 01/20/2021, 12/30/2020 Influenza Vaccine (#1) 2024 Zoster Vaccines (1 of 2) 2029 RSV Patients and Patients Aged 60 years or older (1 - 1-dose 75+ series) 2054 HIB Vaccines Aged Out No longer eligi ble based on patient's age to complete this topic HPV Vaccines Aged Out No longer eligi ble based on patient's age to complete this topic Hepatitis A Vaccines Aged Out No long er eligible based on patient's age to complete this topic IPV Vaccines Aged Out No longer eligi ble based on patient's age to complete this topic Meningococcal Vaccine Aged Out No kenton kenia eligible based on patient's age to complete this topic Pneumococcal Vaccine: Pediatrics (0 to 5 Years) and At-Risk Patients (6 to 49) Years) Aged Out No longer eligible b ased on patient's age to complete this topic RSV under 20 months Aged Out No longe r eligible based on patient's age to complete this topic Rotavirus Vaccines Aged Out No longer eligible based on patient's age to complete this topic Insurance , [address] [place] [address]
--- OUTSIDE RECORDS SUMMARY | 2024-07-05 13:36 | XMS_ITS | Encounter Summary ---
Author Organization [facility] Address [address] [place] [address] [address] [place] [address] Care Team Providers Care Business Intern Name Role Phone Unavailable Primary Care Provider Unavailabl e Reason for Visit * Reason Onset Date Comments New Patient 02/19/2023 Encounter Details Date Type Department Care Team ([facility] st Contact Info) Description 02/19/2023 Telephone [facility] MED[facility]INE [address] [place], [place] [phone] Destin Berry MD [address] [place], [place] [phone] New Patient Social History Tobacco Use Types Packs/Day Years Used Date Smoking Tobacco: Never Assessed Comments Unknown Sex and Gender Information Value Date Recorded Sex Assigned at Female 03/25/2022 10:17 AM EDT Legal Sex Female 10:17 AM EDT Gender Identity Female 03/25/2022 10:17 AM EDT Sexual Orientation Straight 03/25/2022 10 :17 AM EDT documented as of this encounter Miscellaneous Notes * Telephone Encounter - José Hobbs - 02/19/2023 3:51 PM EDT New Patients Par José Waller called to schedule New patient appt, pt did not answer left voicemail to give a call at [phone]. documented in this encounter Plan of Treatment Not on file documented as of this encounter Visit Diagnoses Not on filedocumented in this encounter
--- OUTSIDE RECORDS SUMMARY | 2024-07-05 13:36 | XMS_ITS | Data Portability ---
Author Organization [facility] [address] Address [address] [place] [address] Assessment No assessment recorded. Plan of Treatment Reminders Order Date Submit Date Provider Last Modified By Organization Details Last Modified Time Details Appointments None recorded. Lab None recorded. Referral None recorded. Procedures None recorded. Surgeries None recorded. Imaging None recorded. Medication Orders cefdinir 300 mg capsule 2022 023 [facility] #[id number], [address], [place], [address], 14:59:56 Patient TargetsNo targets recorded. Patient Instructions Encounter Date Encounter Id Patient Instructions Last Modified By Organization Details Last Modified Time 11/13/2022 [id number] earache: care instructions [email or web address] Not available 11/13/2022 14:59:54 Reason for Referral None Reported. Problems Name Problem SNOMED Code Status Onset Date Resolution Date Notes Provider Name and Address Organization Details Recorded Time Allergic rhinitis [id number] Active 023 LETTY DEPARIAO mayito, [place] - [facility] 14:35:29 Problem Notes None recorded. Procedures Surgical History Date Name Laterality Status Provider Name and Address Organization Details Recorded Time ligation of fallopian tube completed LETTY DEPINTO PA - [facility] 11/13/2022 14:36:05 Imaging Results None recorded. Procedure Notes None recorded. Medical Equipment None Reported. Allergies Allergen ID Allergen Name Allergen Category Reaction Reaction Severity Criticality Documentation Date Start Date Code Code System Note Provider Name and Address Organization Details Recorded Time 014089 amoxicill in medicatio n rash Not available Not available 11/13/2022 723 RxNorm LETTY DEPINTO null, PA - [facility] 3 14:33:59 515642 azithromy sj medicatio n diarrhea Not available Not available 11/13/2022 30609 RxNorm had blood in stool LETTY JOSÉ [facility] 14:34:27 Medications Name Sig Start Date Stop Date Status Note LastModified by Organization Details LastModified Time azithromyci n 250 mg tablet TAKE 2 TABLETS BY MOUTH TODAY, THEN TAKE 1 TABLET DAILY FOR 4 DAYS 11/13 completed Not Available Not Available Not Available fluconazole 150 mg tablet TAKE ONE TABLET TODAY, REPEAT IN 3 DAYS IF SYMPTOMS PERSIST 11/13 completed Not Available Not Available Not Available cefdinir 300 mg capsule Take 1 capsule every 12 hours by oral route for 7 days. 2022 active Not Available Not Available Not Avai lable loratadine 10 mg tablet 10 MG ORALLY DAILY NEEDED FOR ALLERGY SYMPTOMS FOR 90 DAYS active Not Available Not Available No t Available Vitals Date Recorded Body height Body mass index (BMI) Body weight Pain severity - 0-10 verbal numeric rating [Score] - Reported Oxygen saturation Oxygen saturation in Arterial blood by Pulse oximetry Heart rate Respiratory rate Body temperature Systolic blood pressure Diastolic blood pressure Provider Name and Address Organization Details Last Updated DateTime 3 162.56 cm 29.2 kg/m2 13645.7 g 8 100 % 100 % 88 /min 18 /min 98 [degF] 112 mm[Hg] 77 mm[Hg] LETTY BILLIE Bennett [facility] 3 14:38:05 Social History Question Answer Notes LastModified by Organizat ion Details LastModified Time Tobacco Smoking Status Never Smoker LETTY JOS[facility] 11/13/2022 14:35:42 What Is Your Level Of Alcohol Consumption? None Information not available 11/13/2022 Do You Use Any Illicit Or Recreational Drugs? No Information not available 11/13/2022 Have You Recently Traveled Abroad? No Information not available 11/13/2022 Do You Or Have You Ever Used Any Other Forms Of Tobacco Or Nicotine? No Information not available 11/13/2022 Sex: Unknown Functional Status None recorded. Mental Status None recorded. Family History Relationship Description Onset Age of this Age Resolved Age Notes LastModified by Organization Details LastModified Time Father No current problems or disability Not available 11/13 14:35:35 Mother No current problems or disability Not available 11/13 14:35:35 Medical History No medical history recorded. Gynecological History Statement/Question Response Date of LMP 11/07/2022 Is there any chance of ? No LMP Definite Obstetrics History GPAL:G 0 P 0 0 0 0 Immunizations Vaccine Type Date Status Note Provider Nam e and Address Organization Details Recorded Time COVID-19, mRNA, LNP-S, PF, 30 mcg/0.3 mL dose 12/30/2020 completed LETTY DEPINTO null, PA - [facility] 11/13/2022 14:33:00 COVID-19, mRNA, LNP-S, PF, 30 mcg/0.3 mL dose 01/20/2021 completed LETTY DEPINTO null, PA - [facility] 11/13/2022 14:33:01 Past Encounters Encounter ID Performer Location Encounter Start Date Encounter Closed Date Diagnosis/Indication Diagnosis SNOMED-CT Code Diagnosis ICD10 Code Diagnosis Note [id number] [address] [place] [address] 12/07/2019 11:06:48 12/07/2019 12:02:41 [id number] [address] [place] [address] 10/02/2020 18:09:15 10/02/2020 18:51:47 [id number] [address] [place] [address] 01/27/2019 17:41:45 01/27/2019 18:22:06 [id number] [address] [place] [address] 03/02/2019 10:44:24 03/02/2019 12:15:18 [id number] [address] [place] [address] 08/15/2020 18:35:21 08/15/2020 19:25:04 [id number] [address] [facility] [place] [address] 08/27/2020 14:29:56 08/27/2020 15:51:03 [id number] [address] [facility] [place] [address] 03/10/2019 15:13:55 03/10/2019 15:40:19 [id number] Alma López MD [address] [facility] [place] [address] 11/13/2022 13:47:17 11/13/2022 15:02:19 Acute left otitis media 952590356 H66.92 Please follow up with PCP or Urgent Care in 3-5 days if no improvemen t or if any new symptoms occur that are concerning . Health Concerns Section Related Observation LastModified by Organization Detai ls LastModified Time None Recorded Concern Status LastModified by Organization Details LastModified Time None Recorded Advance Directives Directive None Recorded Payers Encounter Date Sequence Insurance Name Policy Number Policy Davies Covered Member ID Davies Member ID Guarantor Name 12/07/2019 1 [facility] [id number] Marcel Espinal [id number] Marcel Patton 08/15/2020 1 [facility] [id number] Marcel Espinal [id number] Marcel Patton 08/27/2020 1 [facility] [id number] Marcel Espinal [id number] Marcel Patton 10/02/2020 1 [facility] [id number] Marcel Chentolasarah [id number] Marcel Patton 11/13/2022 1 [facility] [id number] Marcel Espinal [id number] Marcel Patton Notes Date Note Type Note Provider Name and Address Organization Details Recorded Time 11/13/2022 text/html Ear Pain Brief HPIReported bypatient.Location :pain radiates to jaw; left Onset/Timing:new onset; started 2days ago Quality:no itching; no discharge from the ears; no burning Severity:no fever; able to perform daily activities; no interference with sleep Context:no recent trauma; no recent ear infection; no recent swimming; no immunocompromise; no dental problems; no recent airplane travel;recent URI; seasonal allergic rhinitis Associated Symptoms:nasal congestion;sense of fullness/pressure; jaw pain Alma López MD [address] [place] [address] [place], [address], [place] - [facility] 11/13/2022 15:32:23 OBGyn Episode No OBEpisode recorded.
--- OUTSIDE RECORDS SUMMARY | 2024-07-05 13:36 | XMS_ITS | Clinical Summary ---
Author Organization [facility] [address] [facility] Address [address] [place] [address] Phone Care Team Providers Care Ore Buyer Name Role Phone Aliza Cano MD Primary Care Provider [phone] Allergies Active Allergy Reactions Criticality Noted Date Comments Other 03/08/2020 Medications fluconazole (DIFLUCAN) 150 mg tablet Take one tablet by mouth, if no improvement in symptoms in 3-4 days take second tablet. 3 Active norethindrone-e thinyl estradiol (MICROGESTIN 06/14) 1-20 mg-mcg per tablet Take 1 Tablet by mouth daily for 84 days. Then do not take a pill for one week 3 Active loratadine 10 mg capsule Take by mouth. Acti ve ibuprofen (ADVIL,MOTRIN) 800 mg tablet TAKE 1 TAB BY MOUTH EVERY 8 HOURS NEEDED FOR PAIN 9 Active acetaminophen (TYLENOL) 325 mg tablet Take 2 Tabs by mouth every 4 hours as needed for Pain for up to 10 days. 8 Active polyethylene glycol (COLYTE) 240-22.72-6.72 -5.84 gram solutionIndicat ions:Colon cancer screening Take 4,000 mL by mouth 1 (one) time for 1 dose. Drink 8 oz every 10-15 minutes until solution is gone 4000 mL 5 06/11/19 25 Active Problems Problem Noted Date Diagnosed Date Cutaneous candidiasis 06/25/2022 Overview (03/10/2024): Last Assessment & Plan: Treated with fluconazole which will also treat yeast vaginitis if present, although not noted under the microscope. Dysmenorrhea 10/22/2017 Dyspareunia in female 10/22/2017 Pelvic pain in female 10/22/2017 Encounters Date Type Department Care Team Description 06/04/2024 Telephone Gastroenterology - [address] [place] [address] Fabrizio Agee MD 05/31/2024 3:15 PM EST Office Visit Obstetrics and Gynecology - [place] [address] [place] [address] Phi Davila CNM Encounter for annual physical examination excluding gynecological examination in a patient older than 17 years (Primary Dx); Venereal disease screening; Encounter for screening for viral disease; Screening for malignant neoplasm of colon; Family history of uterine cancer; Encounter for nonprocreative genetic counseling from Last 3 Months Surgical History Surgery Date Site/Laterality Comments TUBAL LIGATION 2000 PROCEDURE: HISTORICAL TUBAL LIGATION Family History Medical History Relation Name Comments Diabetes Father Hypertension Father Uterine cancer Other maternal aunt Hypertension Paternal Grandfather Hypertension Paternal Grandmother Breast cancer Neg Hx Colon cancer Neg Hx Ovarian cancer Neg Hx Pancreatic cancer Neg Hx Prostate cancer Neg Hx Relation Name Status Comments Father Other Paternal Grandfather Paternal Grandmother Social History Tobacco Use Types Packs/Day Years [...] Record ed Within the last 3 months, monica w many times did you visit the [...] for your loved ones. For example, child support case officer or elderly care for an older adult? [...] on file Sexual Orientation Not on file Obstetrics History Para Term AB IAB SAB Ectopic Multiple Livin g Live Births 3 3 3 0 0 0 0 0 0 3 3 Date Outcome GA Total Labor Labor/2nd/3rd Weight Sex Type Anes PTL Yee A1 A5 Name Clin 1994 Term 40w 0d F Vag-S pont None Living 1997 Term 40w 0d F Vag-S pont None Living 2000 Term 40w 0d M Vag-S pont None Living Last Filed Vital Signs Vital Sign Reading Time Taken Comments Blood Pressure 110/74 05/31/2024 3:19 PM EST Pulse 81 05/31/2024 3:19 PM EST Temperature - - Respiratory Rate 14 05/31/2024 3:19 PM EST Oxygen Saturation - - Inhaled Oxygen Concentration - - Weight 73.8 kg (162 lb 9.6 oz) 05/31/2024 3:19 P M EST Height 162.6 cm (5' 4 ) 05/31/2024 3:19 PM EST Body Mass Index 27.91 05/31/2024 3:19 PM EST Plan of Treatment Upcoming Encounters Date Type Department Care Team (Late st Contact Info) Description 07/19/2024 8:00 AM EST Appointment [facility] Endoscopy [address] [place] [id number] Fabrizio Agee MD [address] [address] 09/08/2024 11:10 AM EDT Appointment Radiology Department - [address] [address] Health Maintenance Due Date Last Done Comments DTaP,Tdap,and Td Vaccines (1 - Tdap) 1986 Hepatitis B Vaccines (1 of 3 - 19+ 3-dose series) 1998 Colorectal Cancer Screening: Colonoscopy 05/04/2022 COVID-19 Vaccine ( season) 2024 01/20/2021, 12/30/2020 Influenza Vaccine (#1) 2024 Social Influencers of Health Screening 04/12/2025 04/12/2024 Depression Screening 05/30/2025 05/30/2024 Cholesterol Screening (Lipid Panel) 06/14/2025 06/14/2020 Breast Cancer Screening 08/26/2025 08/27/19 24, 08/27/2023, 08/19/2022, Additional history exists Cervical Cancer Screening: HPV 05/31/2029 05/31/2024, 01/24/2020 HIV Screening Completed 05/31/2024, 09/26/2022 Hepatitis C Screening Completed 05/31/2024, 023 HIB Vaccines Aged Out No longer eligi [...] on patient's age to complete this topic MMR Vaccines Aged Out No longer eligi ble based on patient's age to complete this topic Meningococcal ACWY Vaccine Aged Out N o longer eligible based on patient's age to complete this topic Meningococcal B Vacine Aged Out No lo nger eligible based on patient's age to complete this topic Pneumococcal Vaccine: Pediatrics (0 to 5 Years) and At-Risk Patients (6 to 64 Years) Aged Out No longer eligible based on patient's age to complete this topic RSV Immunization Patients Under 20 months Aged Out No longer eligible based on patient's age to complete this topic Varicella Vaccines Aged Out No longer eligible based on patient's age to complete this topic Procedures Procedure Name Priority Date/Time Associated Diagnosis Comments TREPONEMA PALLIDUM ANTIBODY WITH REFLEX TO RPR AND PARTICLE AGGLUTINATION Routine 05/31/2024 4:14 PM EST Venereal disease screening HIV 1, 2 ANTIBODY, P24 ANTIGEN WITH REFLEX TO DIFFERENTIATION Routine 05/31/2024 4:14 PM EST Encounter for screening for viral disease HEPATITIS C ANTIBODY Routine 05/31/2024 4:14 PM EST Encounter for screening for viral disease PAP SMEAR Routine 05/31/2024 3:39 PM EST Encounter for annual physical examination excluding gynecological examination in a patient older than 17 years HPV WITH REFLEX GENOTYPE Routine 05/31/2024 3:39 PM EST Encounter for annual physical examination excluding gynecological examination in a patient older than 17 years CHLAMYDIA TRACHOMATIS AND NEISSERIA GONORRHOEAE PCR Routine 05/31/2024 3:39 PM EST Venereal disease screening SCREENING MAMMOGRAPHY BI 2-VIEW BREAST INC CAD Routine 08/27/2023 10:56 AM EDT Encounter for screening mammogram for malignant neoplasm of breast LIPID PANEL Routine 06/14/2020 from Last 3 Months or Most Recently Relevant to Health Maintenance Results * Hepatitis C antibody (05/31/2024 4:14 PM EST) Hepatitis C Antibody Negative Negative LAB CHEMISTRY METHOD 05/31/2024 7:13 PM EST [facility] Blood Venous blood specimen / Unknown Venipuncture / Unknown 05/31/2024 4:14 PM EST 05/31/2024 4:14 PM EST [facility] LAB BLOOD ORDERABLES Final Re sult Performing Organization Address [facility] Co de Phone Number [facility] [address] [place] [address], [place] [phone] * HIV 1,2 antibody, p24 antigen with reflex to differentiation (05/31/2024 4:14 PM EST) Pathologist [facility] HIV Combo AB/AG Negative Negative LAB CHEMISTRY METHOD 05/31/2024 7:13 PM EST [facility] Blood Venous blood specimen / Unknown Venipuncture / Unknown 05/31/2024 4:14 PM EST 05/31/2024 4:14 PM EST Narrative [facility] - 05/31/2024 7:13 PM EST This assay is a 4th generation assay allowing for earlier detection of HIV infection by detecting the presence of the HIV-1 p24 antigen as well as the traditional antibodies to HIV type 1 (including group O) and type 2. ??Use of a 4th generation assay is the current CDC recommendation for HIV screening. [facility] LAB BLOOD ORDERABLES Final Re sult Performing Organization Address [facility]/ZIP Co de Phone Number [facility] [address] [place] [address], [place] [phone] * Treponema pallidum antibody with reflex to RPR and particle agglutination (05/31/2024 4:14 PM EST) T. Pallidum Antibodies Negative Negative LAB CHEMISTRY METHOD 05/31/2024 6:44 PM EST [facility] Blood Venous blood specimen / Unknown Venipuncture / Unknown 05/31/2024 4:14 PM EST 05/31/2024 4:14 PM EST Phi Davila [facility] LAB BLOOD ORDERABLES Final Re sult [facility] [address] [place] [address], [place] [phone] * HPV with reflex genotype (05/31/2024 3:39 PM EST) HPV Negative Negative LAB MICROBIOLOGY METHOD 2024 2:26 PM EST [facility] Brushing Cervix uteri structure / Unknown 05/31/2024 3:39 PM EST 06/01/2024 9:44 AM EST [facility] LAB MOLECULAR DIAGNOSTICS ORD ERABLES Final Result Performing Organization Address City/[facility]/ZIP Co de Phone Number [facility] [address] [place] [address], [place] [phone] * Chlamydia trachomatis and Neisseria gonorrhoeae molecular study (05/31/2024 3:39 PM EST) Neisseria gonorrhoeae PCR Negative Negative LAB MOLECULAR DIAGNOSTICS METHOD 06/01/2024 8:56 AM EST [facility] Chlamydia trachomatis PCR Negative Negative LAB MOLECULAR DIAGNOSTICS METHOD 06/01/2024 8:56 AM EST [facility] Swab Vaginal structure / Unknown Non-blood Collection / Unknown 05/31/2024 3:39 PM EST 05/31/2024 3:39 PM EST [facility] LAB MICROBIOLOGY - GENERAL OR DERABLES Final Result [facility] [address] [place] [id number], * Pap smear (05/31/2024 3:39 PM EST) Interpretation Negative for intraepithelial lesion or malignancy 06/07/2024 9:19 AM [facility] General Categorization Negative 06/07/2024 9:19 AM [facility] LMP 05/11/2024 06/07/2024 9:19 AM [facility] Specimen Adequacy Satisfactory for evaluation, endocervical/bustos sformation zone component present 06/07/2024 9:19 AM [facility] Pap Methodology Liquid Based Pap Test 06/07/2024 9:19 AM [facility] Disclaimer The Pap test is a screening test which carries an inherent false negative rate. These test results should be correlated with the patient's clinical findings and history. This Pap test was processed using an automated screening system. Technical cytopathology services provided by [facility], at [address] [place] [phone] (CLIA # [id number]/Katheryn Minor MD, Touch Up Painter.) 06/07/2024 9:19 AM [facility] Console Pap Interpretation Reported 06/07/2024 9:19 AM [facility] Brushing Cervix uteri structure / Unknown 05/31/2024 3:39 PM EST 05/31/2024 3:39 PM EST [facility] LAB CYTOLOGY ORDERABLES Final Result [facility] [address] [place] [address], * SCREENING MAMMOGRAPHY BI 2-VIEW BREAST INC CAD (08/27/2023 10:56 AM EDT) Anatomical Region Laterality Modality Radiographic Cristina ging 08/19/2022 11:2 1 AM EDT Narrative 08/27/2023 6:15 PM EDT This is a summary report. The complete report is available in the patient's medical record. If you cannot access the medical record, please contact the sending organization for a detailed fax or copy. Study: SCREENING MAMMOGRAPHY BI 2-VIEW BREAST INC CAD Technique: Bilateral full-field digital screening mammography is obtained and read in conjunction with computer aided detection. ??Tomosynthesis as well as 2D C-View imaging were obtained. Comparison: Comparison made to multiple prior, most recent August 19, 2022, and most remote May 31, 2020. Breast composition: The breast tissue is heterogeneously dense, which may obscure small masses. Bilateral breasts: No significant masses, suspicious calcifications or other abnormalities are seen in either breast. IMPRESSION: Impression: Bilateral breasts: Negative, no specific mammographic evidence of malignancy. ??Normal interval follow-up is recommended in 12 months. BI-RADS: Category 1: Negative Procedure Note Penelope Mccall MD - 01/12/2024 This is a summary report. The complete report is available in thepatient's medical record. If you cannot access the medical record, pleasecontact the sending organization for a detailed fax or copy. Study: SCREENING MAMMOGRAPHY BI 2-VIEW BREAST INC CAD Technique: Bilateral full-field digital screening mammography is obtainedand read in conjunction with computer aided detection. Tomosynthesis aswell as 2D C-View imaging were obtained. Comparison: Comparison made to multiple prior, most recent August 19, 2022,and most remote May 31, 2020. Breast composition: The breast tissue is heterogeneously dense, which mayobscure small masses. Bilateral breasts: No significant masses, suspicious calcifications orother abnormalities are seen in either breast. IMPRESSION: Impression: Bilateral breasts: Negative, no specific mammographic evidence ofmalignancy. Normal interval follow-up is recommended in 12 months. BI-RADS: Category 1: Negative Ioana Ran Eaton CNM IMG XR PROCEDURES Final Result * Lipid panel (06/14/2020) LDL/HDL Ratio 0 Comment:no interpretation, a bstracted Triglycerides 0 mg/dL Comment:no interpretation, a bstracted Cholesterol 0 mg/dL Comment:no interpretation, a bstracted HDL 0 mg/dL Comment:no interpretation, a bstracted LDL Cholesterol 0 mg/dL Comment:no interpretation, a bstracted Blood Venous blood specimen / Unknown Historical Provider LAB BLOOD ORDERABLES Nuria kelly Result from Last 3 Months or Most Recently Relevant to Health Maintenance Insurance [facility] Care Teams Ore Buyer Relationship Specialty Start Date End Date Aliza Cano MD [address] [place] [phone] PCP - General 04/01/17
== END 2024-07-05 13:32 | disposition home or self-care (01) ==
PROVIDERS: PCP Nurse Practitioner Family; Visit Provider Nurse Practitioner Family
DX: R10.9 Unspecified abdominal pain (principal); N39.0 Urinary tract infection, site not specified; B96.20 Unspecified Escherichia coli [E. coli] as the cause of diseases classified elsewhere

== ENCOUNTER → 2024-07-05 12:35 | Outpatient (BNVA) | payer OTHER, SELFPAY | PROVIDERS: PCP Nurse Practitioner Family; Visit Provider Nurse Practitioner Family | DX: R10.9 Unspecified abdominal pain (principal); N39.0 Urinary tract infection, site not specified; B96.20 Unspecified Escherichia coli [E. coli] as the cause of diseases classified elsewhere | CPT/HCPCS: 96127 ==

== ENCOUNTER 2024-07-05 13:36 | Outpatient (REF) | payer OTHER, SELFPAY ==
--- OUTSIDE RECORDS SUMMARY | 2024-07-05 14:46 | XMS_ITS | Encounter Summary ---
Author Organization [facility] Address [address] [place] [address] [address] [place] [address] Care Team Providers Care Lineman Service Or Work Dispatcher Name Role Phone Unavailable Primary Care Provider Unavailabl e Reason for Visit * Reason Onset Date Comments New Patient 02/19/2023 Encounter Details Date Type Department Care Team ([facility] st Contact Info) Description 02/19/2023 Telephone [facility] MEDICINE [address] [place], [place] [phone] Destin Berry MD [address] [place], [place] [phone] New Patient Social History Tobacco Use Types [...] left voicemail to give a call at [phone]. documented in this encounter Plan of Treatment Not on file documented as of this encounter Visit Diagnoses Not on filedocumented in this encounter
--- OUTSIDE RECORDS SUMMARY | 2024-07-05 14:46 | XMS_ITS | Clinical Summary ---
Author Organization [employer] Address [address] [place] [address] [address] [place] [address] Care Team Providers Care Sales Agent Business Services Name Role Phone Unavailable Primary Care Provider [...] complete this topic Insurance , [address] [place] [address]
--- OUTSIDE RECORDS SUMMARY | 2024-07-05 14:46 | XMS_ITS | Clinical Summary ---
Author Organization [facility] [address] [facility] Address [address] [place] [address] Phone Care Team Providers Care Tongsman Name Role Phone Aliza Cano MD Primary Care Provider [phone] Allergies Active Allergy Reactions Criticality Noted Date [...] [address] [place] [address] Fabrizio Agee MD 05/31/2024 3:15 PM EST Office Visit Obstetrics and Gynecology - [place] [address] [place] [address] Phi Davila CNM Encounter for [...] for your loved ones. For example, child attendant or elderly care for an older adult? [...] Info) Description 07/19/2024 8:00 AM EST Appointment [facility] Endoscopy [address] [place] [phone] Fabrizio Agee MD [address] [address] 09/08/2024 11:10 AM EDT Appointment Radiology Department - [address] [address] Health Maintenance Due Date Last Done Comments [...] LAB CHEMISTRY METHOD 05/31/2024 7:13 PM EST [facility] Blood Venous blood specimen / Unknown Venipuncture / Unknown 05/31/2024 4:14 PM EST 05/31/2024 4:14 PM EST [facility] LAB BLOOD ORDERABLES Final Re sult Performing Organization Address [facility] Co de Phone Number [facility] [address] [place] [address], [place] [phone] * HIV 1,2 antibody, p24 antigen with reflex to differentiation (05/31/2024 4:14 PM EST) Pathologist [facility] HIV Combo AB/AG Negative Negative LAB CHEMISTRY METHOD 05/31/2024 7:13 PM EST [facility] Blood Venous blood specimen / Unknown Venipuncture / Unknown 05/31/2024 4:14 PM EST 05/31/2024 4:14 PM EST Narrative [facility] - 05/31/2024 7:13 PM EST This assay is a 4th generation assay allowing for earlier detection of HIV infection by detecting the presence of the HIV-1 p24 antigen as well as the traditional antibodies to HIV type 1 (including group O) and type 2. ??Use of a 4th generation assay is the current CDC recommendation for HIV screening. [facility] LAB BLOOD ORDERABLES Final Re sult Performing Organization Address [facility]/ZIP Co de Phone Number [facility] [address] [place] [address], [place] [phone] * Treponema pallidum antibody with reflex to RPR and particle agglutination (05/31/2024 4:14 PM EST) T. Pallidum Antibodies Negative Negative LAB CHEMISTRY METHOD 05/31/2024 6:44 PM EST [facility] Blood Venous blood specimen / Unknown Venipuncture / Unknown 05/31/2024 4:14 PM EST 05/31/2024 4:14 PM EST Phi Davila [facility] LAB BLOOD ORDERABLES Final Re sult [facility] [address] [place] [address], [place] [phone] * HPV with reflex genotype (05/31/2024 3:39 PM EST) HPV Negative Negative LAB MICROBIOLOGY METHOD 2024 2:26 PM EST [facility] Brushing Cervix uteri structure / Unknown 05/31/2024 3:39 PM EST 06/01/2024 9:44 AM EST [facility] LAB MOLECULAR DIAGNOSTICS ORD ERABLES Final Result Performing Organization Address City/[facility]/ZIP Co de Phone Number [facility] [address] [place] [address], [place] [phone] * Chlamydia trachomatis and Neisseria gonorrhoeae molecular study (05/31/2024 3:39 PM EST) Neisseria gonorrhoeae PCR Negative Negative LAB MOLECULAR DIAGNOSTICS METHOD 06/01/2024 8:56 AM EST [facility] Chlamydia trachomatis PCR Negative Negative LAB MOLECULAR DIAGNOSTICS METHOD 06/01/2024 8:56 AM EST [facility] Swab Vaginal structure / Unknown Non-blood Collection / Unknown 05/31/2024 3:39 PM EST 05/31/2024 3:39 PM EST Phi PEREZ LAB MICROBIOLOGY - GENERAL OR DERABLES Final Result [facility] [address] [place] [phone], * Pap smear (05/31/2024 3:39 PM EST) Interpretation Negative for intraepithelial lesion or malignancy 06/07/2024 9:19 AM [facility] General Categorization Negative 06/07/2024 9:19 AM [facility] LMP 05/11/2024 06/07/2024 9:19 AM [facility] Specimen Adequacy Satisfactory for evaluation, endocervical/bustos sformation zone component present 06/07/2024 9:19 AM [facility] Pap Methodology Liquid Based Pap Test 06/07/2024 9:19 AM [facility] Disclaimer The Pap test is a screening test which carries an inherent false negative rate. These test results should be correlated with the patient's clinical findings and history. This Pap test was processed using an automated screening system. Technical cytopathology services provided by [facility], at [address] [place] [id number] (CLIA # [id number]/Katheryn Minor MD, [employer].) 06/07/2024 9:19 AM [facility] Console Pap Interpretation Reported 06/07/2024 9:19 AM [facility] Brushing Cervix uteri structure / Unknown 05/31/2024 3:39 PM EST 05/31/2024 3:39 PM EST Phi PEREZ LAB CYTOLOGY ORDERABLES Final Result [facility] [address] [place] [address], * SCREENING MAMMOGRAPHY BI 2-VIEW BREAST [employer] [...] Most Recently Relevant to Health Maintenance Insurance [facility] Care Teams Tongsman Relationship Specialty Start Date End Date Aliza Cano MD [address] [place] [address] [phone] PCP - General 04/01/17
--- OUTSIDE RECORDS SUMMARY | 2024-07-05 14:46 | XMS_ITS | Encounter Summary ---
Author Organization [employer] Address [address] [place] [address] Care Team Providers Care Log Loader Helper Name Role Phone Aliza Cano MD Primary Care Provider Encounter Details Date Type Department Care Team ([facility] st Contact Info) Description 06/04/2024 Telephone Gastroenterology - [address] [facility] [address] [place] [phone] Fabrizio Agee MD [address] [place] [address] Social History Tobacco Use Types Packs/Day Years [...] for your loved ones. For example, child and family therapist or elderly care for an older adult? [...] Info) Description 07/19/2024 8:00 AM EST Appointment [facility] Endoscopy [address] [place] [address] Fabrizio Agee MD [address] [address] 09/08/2024 11:10 AM EDT Appointment Radiology Department - [address] [address] documented as of this encounter Visit Diagnoses Not on filedocumented in this encounter Additional Health Concerns Assessment Noted Time PHQ-9 Depression Total Score: 0 05/30/19 25 4:31 PM EST documented as of this encounter Care Teams Log Loader Helper Relationship Specialty Start Date End Date Aliza Cano MD [address] [place] [address] PCP - General 04/01/17 documented as of this encounter
[2024-07-05 18:16] LABS: Alanine Aminotransferase 22 U/L (0-31); Albumin Level 4.1 g/dL (3.5-5.0); Alkaline Phosphatase 73 U/L (39-117); Anion Gap 11 (12-20); Aspartate Amino Transferase 22 U/L (5-31); Bilirubin Total 0.2 mg/dL (0.0-1.0); Blood Urea Nitrogen 7 mg/dL (9-16); Calcium 9.1 mg/dL (8.4-10.2); Carbon Dioxide 25 mmol/L (22-29); Chloride 109 mmol/L (96-108); Estimated Glomerular Filt Rate > 60; Glucose Random 102 mg/dL (60-115); Potassium 3.5 mmol/L (3.3-5.1); Sodium 141 mmol/L (135-145); Total Protein 7.8 g/dL (6.5-8.0)
[2024-07-05 18:17] LABS: Appearance Urine Clear; Color Urine Yellow; Glucose Urine UA Negative (Negative); Leukocyte Esterase Urine Negative (Negative); Nitrite Urine Negative (Negative); PH 5.5 (5.0-9.0); Specific Gravity - Urine <= 1.005 (1.005-1.025); Urine Blood Negative (Negative); Urine Ketones Negative (Negative); Urine Protein Negative (Neg-Trace)
== END 2024-07-05 13:37 | disposition home or self-care (01) ==
LOC: HO.WFDLDS 13:36
PROVIDERS: Visit Provider Nurse Practitioner Family
DX: N39.0 Urinary tract infection, site not specified (principal); B96.20 Unspecified Escherichia coli [E. coli] as the cause of diseases classified elsewhere; R10.9 Unspecified abdominal pain
CPT/HCPCS: 36415; 80053; 81003

== ENCOUNTER 2024-07-06 14:38 | Outpatient (REF) | payer OTHER, SELFPAY | END 2024-07-06 14:39 | disposition home or self-care (01) | LOC: HO.US 14:38 | PROVIDERS: PCP Nurse Practitioner Family; Visit Provider Nurse Practitioner Family | DX: R10.9 Unspecified abdominal pain (principal); N39.0 Urinary tract infection, site not specified; B96.20 Unspecified Escherichia coli [E. coli] as the cause of diseases classified elsewhere | CPT/HCPCS: 76770 ==

== ENCOUNTER → 2024-07-06 14:40 | Outpatient (BNV) | payer OTHER, SELFPAY | PROVIDERS: PCP Nurse Practitioner Family; Visit Provider Radiology Diagnostic Radiology | DX: R10.9 Unspecified abdominal pain (principal) | CPT/HCPCS: 76770 ==

== ENCOUNTER 2024-10-26 14:59 | Outpatient (AMB) | payer OTHER, SELFPAY ==
--- NOTE | 2024-10-26 15:01 | MHC.PC.OV ---
Vital Signs 10/26/24 15:04 Height 5 ft 4 in Weight 167 lb 8 oz BMI 28.7 BP 98/66 Blood Pressure Location Lt brachial Position Sitting Respiration 12 Pulse 58 Pulse Source Pulse Oximeter Temp 97.4 F Temp Source Oral Pulse Oximetry (%) 99 Oxygen Delivery Method Room Air Intake Visit Reasons: ANNUAL PE Intake Note: CPE and patient needs refill on vitamin d3 Lining Cleaner Required: No Allergies amoxicillin [From Augmentin] Allergy (Mild, Verified 10/26/24 15:13) rash clavulanic acid [From Augmentin] Allergy (Mild, Verified 10/26/24 15:13) rash SEASONAL ALLERGIES Allergy (Mild, Uncoded 10/26/24 15:01) RUNNY NOSE Medication List - Last Reconciled 10/26/24 by LAVERNE Wilkinson-JOEL acetaminophen 1,000 mg PO Q6H PRN albuterol sulfate 90 mcg/actuation (Ventolin HFA) 2 puffs inhalation Q4-6H PRN celecoxib 100 mg PO DAILY PRN cholecalciferol (vitamin D3) (Vitamin D3) 25 mcg PO DAILY loratadine (Allergy Relief (loratadine)) 10 mg PO DAILY PRN 90 days sennosides (senna) 8.6 mg PO BEDTIME Tobacco use date assessed: 10/26/24 Dental Screening Dental Screen Date: 10/26/24 Did you have a dental visit in the last 12 months?: Yes Did you have a dental problem in the last 6 months where you did not have access to dental care?: No Was dental information given to patient?: Patient has dentist HPI HPI Comments History of Present Illness Details 44-year-old Tajik-speaking female with vitamin-D deficiency, obesity, endometriosis, hydronephrosis, chronic abdominal pain, GERD, chronic constipation, benign Stable 7 mm low-attenuation lesion in the anterior segment of the right lobe of the liver, nabothian cysts, H Pylori, Reactive airway dz, environmental allergies status post tubal ligation laparoscopy Health maintenance Pap smear: Patient follows with [facility] obgyn Mammogram 09/2024 WNL [facility]ision[facility] Tdap admin today Colon 06/2024 Debbie sessile polyp [facility] Gastroenterology Derm [facility] Derm, L elbow, L inner thigh appt coming up 11/09/24 [employer]CHISE SALES MANAGER History of Present Illness - The patient is a 44-year-old female presenting for an annual physical exam. - Past history includes vitamin D deficiency, GERD, treated H. pylori infection, and chronic abdominal pain. - Reports dermatological lesions in the left elbow and inner thigh. - Experiences sensation of things getting stuck in her throat when burping or vomiting, started a few months ago. Does not have any pain. No trouble swallowing. - Painful periods; active w/ FRANCHISE SALES MANAGER. Using Apap and Motrin, no relief. Family History - Daughter has two cysts on the head, undergoing further evaluation. Social History - Dietary improvements with increased fruit intake to manage constipation. - Reports normal employment status and housing situation. - Experiences stress related to her daughter's health condition. Health Maintenance - Tetanus vaccination administered during current visit. - Mammogram is up-to-date. - Pap smear and colonoscopy are current. - Laboratory work recommended including CMP, diabetes screen, cholesterol, B12, thyroid, and vitamin D level. Review of Systems - General: Reports pain during menstruation, episodic abdominal pain, sensation of food getting stuck. - Dermatological: Reports lesions on left elbow and left inner thigh. - Gastrointestinal: Denies recent frequent constipation; reports unresolved sensation of trapped air. - Neurological: Denies dizziness upon position changes. - Urinary: Denies recurrent UTI symptoms. Physical Exam General: Well developed, well nourished, in no acute distress. Appears stated age. Head: Normocephalic, atraumatic. Eyes: Pupils are equal, round and reactive to light and accommodation. Conjunctivae are clear. Vision grossly normal. Patient uses glasses. Ears: TMs clear AU, EACS WNL Nose: Patent, without discharge. Neck: Supple, no adenopathy or thyromegaly. No discomfort noted upon swallowing. Breast: Edu on SBE Lungs: Clear to auscultation bilaterally. No rales, rhonchi or wheeze noted. Good air flow in all stroud. Heart: Regular rate and rhythm. No murmurs, click, rubs or gallops are noted. Abdomen: Bowel sounds present in all quadrants. The abdomen is soft, nontender, with no masses or organomegaly noted. No hernias are noted. Slight discomfort noted upon palpation. : Deferred. Reviewed recommendations for routine FRANCHISE SALES MANAGER Pulses: Peripheral pulses are equal and palpable bilaterally. Extremities: No clubbing, cyanosis nor edema is noted. Neurologic: Gait and station normal. Cranial Nerves 2-12 intact. Motor strength grossly symmetrical and intact. No sensory loss. Balance normal. Skin: No rashes, ulcers, or lesions noted. Turgor is good. Skin color is good. Hair and nails are without abnormalities. Noted lesions on left elbow and left inner thigh, patient has dermatology follow-up scheduled. Psych: Normal eye contact, affect and mood appropriate, and normal interactions. Patient is alert and appropriate to context. Mood is reported as good. Results - Labs: Pending for CMP, diabetes screen, cholesterol, B12, thyroid, and vitamin D level. Discussion Notes I discussed with the patient the importance of monitoring vitamin D levels and maintaining compliance with supplements. We reviewed that GERD and previous H. pylori have been addressed, but her sensation with swallowing may benefit from further gastroenterologic evaluation. Dermatological lesions require dermatology follow-up with biopsy if indicated. Severe menstrual pain and its possible relation to perimenopause were noted, with advice to contact HAND WOVEN CARPET [employer] RUG MENDER if exacerbated. Daughter's medical situation was addressed, providing emotional support. Refill prescriptions for loratadine were ordered, and I advised lifestyle adaptations, including diet changes and exercise. The patient consented to laboratory tests at this visit. Assessment and Plan 1. Vitamin D Deficiency - Continue supplement; lab evaluation for dosage. 2. GERD - Maintain current treatment. 3. Chronic Abdominal Pain - Monitor symptoms; gastroenterology referral. 4. Dermatological Lesions - Dermatology consult pending. 5. Perimenopausal Symptoms - Track symptoms; [employer] MENDER consultation if needed. PRN celoxicib. Patient Instructions - Continue taking all prescribed medications. - Follow up with dermatology and ask them to send notes. - Monitor menstrual pain and contact [employer] WOVEN [employer] MENDER if symptoms worsen. - Maintain dietary improvements and incorporate exercise. - Complete laboratory tests today and follow up with results. - RTO 1 year CPE, sooner PRN Consent Patient was informed and verbally consented to the use of an ambient scribe for clinic note documentation during this visit. An additional 20 minutes was spent addressing the problem(s) noted at todays visit. This includes time spent before the visit reviewing the chart, time spent during the visit, and time spent after the visit on documentation reviewing laboratory results, diagnostic imaging, medications, performing a medically necessary evaluation, counseling on diagnoses, care coordination, ordering appropriate tests, ordering appropriate medications, review of tests performed by other providers, reporting test results with the patient, communication with other healthcare providers. [facility] Medical History (Updated 10/26/24 @ 17:25 by Shayy Means [facility]) Gastroenteritis due to norovirus H. 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 1. Little interest or pleasure in doing things: not at all 2. Feeling down, depressed, or hopeless: not at all 3. Trouble falling or staying asleep, or sleeping too much: not at all 4. Feeling tired or having little energy: not at all 5. Poor appetite or overeating: not at all 6. Feeling bad about yourself - or that you are a failure or have let yourself or your family down: not at all 7. Trouble concentrating on things, such as reading the newspaper or watching television: not at all 8. Moving or speaking so slowly that other people could have noticed. Or the opposite - being so fidgety or restless that you have been moving around a lot more than usual: not at all 9. Thoughts that you would be better off or of hurting yourself in some way: not at all Total score: 0 Depression Screening Interpretation: Negative Depression Screening Done: Yes 09921 - PHQ-9 Billing: Yes Source: Developed by Drs. Dayne Arauz, Toshia Meehan, Chintan Paige and colleagues, with an educational yeni from [email or web address]. Thrive Questionnaire Date Thrive assessed: 10/26/24 I am a: Patient What is your living situation today?: I have a steady place to live Within the past 12 months, did the food you bought not last and you didn't have the money to get more?: I choose not to answer this question Within the past 12 months, did you worry whether your food would run out before you got money to buy more?: I choose not to answer this question Do you have trouble paying for medicines?: I choose not to answer this question Do you have trouble getting transportation to medical appointments?: No Do you have trouble paying your heating and electricity bill?: I choose not to answer this question Do you have trouble taking care of your child, family member or friend?: No Do you have trouble with day-to-day activities such as bathing, preparing meals, shopping, managing finances, etc.?: No Are you currently unemployed and looking for a job?: No Are you interested in more education?: No Please select the resources that you would like help with: None Currently or been in a relationship where the following occur: I choose not to answer THRIVE Score: 0 AUDIT C Alcohol Use Questionnaire (AUDIT-C) 1. How often do you have a drink containing alcohol?: Never 3. How often do you have six or more drinks on one occasion?: Never Total Score: 0 Score Reviewed/Action Taken: Yes OZZIE-7 AMB Questionnaire OZZIE-7 Date OZZIE - 7 assessed: 10/26/24 Feeling nervous, anxious, or on edge: 0 = Not at all Not being able to stop or control worryin = Not at all Worrying too much about different things: 0 = Not at all Trouble relaxin = Not at all Being so restless that it is hard to sit still: 0 = Not at all Becoming easily annoyed or irritable: 0 = Not at all Feeling afraid as if something awful might happen: 0 = Not at all Total OZZIE-7 score (0-4 normal; 5-9 mild; 10-14 moderate; 15-21 severe): 0 Source: Developed by Drs. Dayne Arauz, Toshia Meehan, Chintan Paige and colleagues, with an educational yeni from [email or web address]. OZZIE-7 Assessment Billing OZZIE-7 Assessment Tool: OZZIE-7 Assessment 40305 Physical exam (Primary Care) Vital Signs: Last Vital Signs Temp 97.4 F 10/26/24 15:04 Pulse 58 10/26/24 15:04 Resp 12 10/26/24 15:04 BP 98/66 10/26/24 15:04 Pulse Ox 99 10/26/24 15:04 Oxygen Delivery Method Room Air 10/26/24 15:04 BMI result Body Mass Index 28.7 Tobacco/Smoking Status: Tobacco use Status Tobacco use date assessed 10/26/24 10/26/24 15:06 Patient Tobacco Use Status Never used Tobacco 10/26/24 15:06 e-Cigarette/Vaping Use Never Used 10/26/24 15:06 PHQ-9: PHQ-9 Score PHQ-9: Total score 0 10/26/24 15:11 Depression Screening Interpretation: Negative Thrive Assessment: Date of Thrive Assessment Date Thrive assessed 10/26/24 10/26/24 15:06 Currently or been in a relationship where the following occur: I choose not to answer Immunizations Boostrix Tdap 2.5 Lf unit-8 mcg-5 Lf/0.5 mL intramuscular syringe Performing Provider: ERICA Wilkinson Performing Location: [facility] Administered by: Justin Marcos MA on 10/26/24 15:13 Dose Route Admin Location Dispensed Lot Number Expiration Date [facility] [place] Job Com[employer]itor 0.5 mL IM Right Deltoid 0.5 mL [id number] 01/21/27 [id number] [employer] VIS Given Date VIS Provided VIS Publication Date 10/26/24 Single Vaccine 20 Eligibility Eligibility Date Funding Source Not [facility] Eligible 10/26/24 Private Coding Level of Care Code Est Pt Level 3 (68853) Est Pt Prev Care 40-64y(37964) Diagnoses Encounter for general adult medical examination with abnormal findings Z00.01 Need for Tdap vaccination Z23 Dyspepsia R10.13 Chronic abdominal pain R10.9; G89.29 Eructation R14.2 Laboratory exam ordered as part of routine general medical examination Z00.00 Vitamin D deficiency E55.9 Environmental allergies Z91.09 Reactive airway disease J45.909 Additional Codes OZZIE-7 Assessment Billing - OZZIE-7 Assessment Tool: OZZIE-7 Assessment 34606 ([id number]) PHQ-9 - 95963 - PHQ-9 Billing: Yes ([id number]) Assessment & Plan Assessment & Plan (1) Encounter for general adult medical examination with abnormal findings: Onset Date: ~10/26/24 Code(s): Z00.01 - Encounter for general adult medical examination with abnormal findings Category: Medical (2) Need for Tdap vaccination: Code(s): Z23 - Encounter for immunization Category: Medical (3) Dyspepsia: Code(s): R10.13 - Epigastric pain Category: Medical (4) Chronic abdominal pain: Code(s): R10.9 - Unspecified abdominal pain; G89.29 - Other chronic pain Category: Medical (5) Eructation: Code(s): R14.2 - Eructation Category: Medical (6) Laboratory exam ordered as part of routine general medical examination: Code(s): Z00.00 - Encounter for general adult medical examination without abnormal findings Category: Medical (7) Vitamin D deficiency: Code(s): E55.9 - Vitamin D deficiency, unspecified Category: Medical (8) Environmental allergies: Code(s): Z91.09 - Other allergy status, other than to drugs and biological substances Category: Medical (9) Reactive airway disease: Code(s): J45.909 - Unspecified asthma, uncomplicated Category: Medical Plan . Orders: Orders Comprehensive Met. Panel Today Z00.00 - Encounter for general adult medical examination without abnormal findings, Z00.01 - Encounter for general adult medical examination with abnormal findings Lipid Panel Today Z00.00 - Encounter for general adult medical examination without abnormal findings, Z00.01 - Encounter for general adult medical examination with abnormal findings Microalbumin, Random (w Creat) Today Z00.00 - Encounter for general adult medical examination without abnormal findings, Z00.01 - Encounter for general adult medical examination with abnormal findings TDaP Immunization Today Z23 - Encounter for immunization Hemoglobin A1c Today Z00.00 - Encounter for general adult medical examination without abnormal findings, Z00.01 - Encounter for general adult medical examination with abnormal findings Vitamin B12 and Folate Today Z00.00 - Encounter for general adult medical examination without abnormal findings, Z00.01 - Encounter for general adult medical examination with abnormal findings TSH reflex Free T4 Today Z00.00 - Encounter for general adult medical examination without abnormal findings, Z00.01 - Encounter for general adult medical examination with abnormal findings Vitamin D 25-OH Total Today Z00.00 - Encounter for general adult medical examination without abnormal findings, Z00.01 - Encounter for general adult medical examination with abnormal findings Referrals Gastroenterology Referral G89.29 - Other chronic pain, R10.13 - Epigastric pain, R10.9 - Unspecified abdominal pain, R14.2 - Eructation Medications: Refilled albuterol sulfate 90 mcg/actuation (Ventolin HFA) 2 puffs inhalation Q4-6H PRN 8.5 grams 0RF shortness of breath or wheezing cholecalciferol (vitamin D3) (Vitamin D3) 25 mcg PO DAILY 90 caps 2RF E55.9 - Vitamin D deficiency, unspecified loratadine (Allergy Relief (loratadine)) 10 mg PO DAILY 90 days PRN 90 tabs 2RF allergy symptoms celecoxib 100 mg PO DAILY PRN 30 caps 1RF pain Discontinued sennosides (senna) hold for loose stools Discontinued Reason: Patient Completed Course 8.6 mg PO BEDTIME 90 tabs 2RF Patient Instructions: Health screenings for women You should visit your health care provider from time to time, even if you are healthy. The purpose of these visits is to: Screen for medical issues Assess your risk for future medical problems Encourage a healthy lifestyle Update vaccinations and other preventive care services Help you get to know your provider in case of an illness Information Even if you feel fine, you should still see your provider for regular checkups. These visits can help you avoid problems in the future. For example, the only way to find out if you have high blood pressure is to have it checked regularly. High blood sugar and high cholesterol levels also may not have any symptoms in the early stages. A simple blood test can check for these conditions. There are specific times when you should see your provider or receive specific health screenings. The [place] Preventive Services Task Force publishes a list of recommended screenings. Below are screening guidelines for women ages 18 to 39. BLOOD PRESSURE SCREENING Your blood pressure should be checked at least once every 3 to 5 years if: Your blood pressure is in the normal range (top number less than 120 mm Hg and bottom number less than 80 mm Hg) You don't have risk factors for high blood pressure Ask your provider if you need your blood pressure checked more often if: The top number is 120 to 129 mm Hg or the bottom number is 70 to 79 mm Hg You have diabetes, heart disease, kidney problems, are overweight, or have certain other health conditions You have a first-degree relative with high blood pressure You are Black You had high blood pressure during a If the top number is 130 mm Hg or greater or the bottom number is 80 mm Hg or greater, this is considered stage 1 hypertension. Schedule an appointment with your provider to learn how you can reduce your blood pressure. Watch for blood pressure screenings in your area. Ask your provider if you can stop in to have your blood pressure checked. BREAST CANCER SCREENING Experts do not agree about the benefits of breast self-exams in finding breast cancer or saving lives. Talk to your provider about what is best for you. A screening mammogram is not recommended for most women under age 40. Your provider may discuss and recommend mammograms, MRI scans, or ultrasounds if you have an increased risk for breast cancer, such as: A mother or sister who had breast cancer at a young age (most often starting screening earlier than the age the close relative was diagnosed) You carry a high-risk genetic marker CERVICAL CANCER SCREENING Cervical cancer screening should start at age 21 years unless your provider advises otherwise. After the first test: Women ages 21 through 29 should have a Pap test every 3 years. Exoprts do not agree on whether HPV testing is recommended for this age group. Women ages 30 through 65 should be screened with either a Pap test every 3 years or the HPV test every 5 years or both tests every 5 years (called cotesting ). Women who have been treated for precancer (cervical dysplasia) should continue to have Pap tests for 20 years after treatment or until age 65, whichever is longer. If you have had your uterus and cervix removed (total hysterectomy), and you have not been diagnosed with cervical cancer or precancer (high grade cervical neoplasia), you do not need cervical cancer screening. CHOLESTEROL SCREENING Cholesterol screening should begin at: Age 45 for women with no known risk factors for coronary heart disease Age 20 for women with known risk factors for coronary heart disease Repeat cholesterol screening should take place: Every 5 years for women with normal cholesterol levels More often if changes occur in lifestyle (including weight gain and diet) More often if you have diabetes, heart disease, kidney problems, or certain other conditions DIABETES SCREENING You should be screened for diabetes starting at age 35 and then repeated every 3 years if you have no risk factors for diabetes. Screening may need to start earlier and be repeated more often if you have other risk factors for diabetes, such as: You have a first degree relative with diabetes. You are overweight or have obesity. You have high blood pressure, prediabetes, or a history of heart disease. Screening for diabetes should be done if you are planning to become and you are overweight and have other risk factors such as high blood pressure. DENTAL EXAM Go to the dentist once or twice every year for an exam and cleaning. Your dentist will evaluate if you need more frequent visits. EYE EXAM Have an eye exam every 5 to 10 years before age 40. If you have vision problems, have an eye exam every 2 years or more often if recommended by your provider. You should have an eye exam that includes an examination of your retina (back of your eye) at least every year if you have diabetes. IMMUNIZATIONS Commonly needed vaccines include: Flu shot: get one every year. COVID-19 vaccine: ask your provider what is best for you. Tetanus-diphtheria and acellular pertussis (Tdap) vaccine: have one at or after age 19 as one of your tetanus-diphtheria vaccines if you did not receive it as an adolescent. Tetanus-diphtheria: have a booster (or Tdap) every 10 years. Varicella vaccine: receive 2 doses if you never had chickenpox or the varicella vaccine. Hepatitis B vaccine: receive 2, 3, or 4 doses, depending on your exact circumstances. Measles, mumps, and rubella (MMR) vaccine: receive 1 to 2 doses if you are not already immune to MMR. Your provider can tell you if you are immune. Ask your provider about the human papillomavirus (HPV) vaccine if: You have not received the HPV vaccine in the past You have not completed the full vaccine series (you should catch up on this shot) Ask your provider if you should receive other immunizations if you have certain health problems that increase your risk for some diseases such as pneumonia. INFECTIOUS DISEASE SCREENING Women who are sexually active should be screened for chlamydia and gonorrhea up until age 25. Women 25 years and older should be screened for chlamydia and gonorrhea if at high risk. Screening for hepatitis C: All adults ages 18 to 79 should get a one-time test for hepatitis C. people should be screened at every . Screening for human immunodeficiency virus (HIV): All people ages 15 to 65 should get a one-time test for HIV. Depending on your lifestyle and medical history, you may also need to be screened for infections such as syphilis and HIV, as well as other infections. PHYSICAL EXAM All adults should visit their provider from time to time, even if they are healthy. The purpose of these visits is to: Screen for disease Assess your risk of future medical problems Encourage a healthy lifestyle Update your vaccinations and other preventive care services Maintain a relationship with a provider in case of an illness Your height, weight, and BMI should be checked at every exam. During your exam, your provider may ask you about: Depression and anxiety Diet and exercise Alcohol and tobacco use Safety issues, such as using seat belts, smoke detectors, and intimate partner violence Your medicines and risk for interactions SKIN SELF-EXAM Your provider may check your skin for signs of skin cancer, especially if you're at high risk, such as if you: Have had skin cancer before Have close relatives with skin cancer Have a weakened immune system OTHER SCREENING Talk with your provider about colon cancer screening if you have a strong family history of colon cancer or polyps, or if you have had inflammatory bowel disease or polyps yourself. Routine bone density screening of women [id number] 40 is not recommended.
[2024-10-26 15:04] VITALS: BP 98/66; PULSE 58; RESP 12; TEMP 36.3; O2SAT 99; BMI 28.7
--- OUTSIDE RECORDS SUMMARY | 2024-10-26 16:40 | XMS_ITS ---
patient was deemed in satisfactory condition to undergo the procedure. The anesthesia plan was touse monitored anesthesia care (MAC). Immediately priorto administration of medications, the patient was re-assessed for adequacy to receive sedatives. The heart rate, respiratory rate, oxygen saturations, blood pressure, adequacy of pulmonary ventilation,and response to care were monitored throughout the procedure. The physical status of the patient was re-assessed after the procedure. After I obtained informed consent, the scope was passed under direct vision. Throughout theprocedure, the patient's blood pressure, pulse, and oxygen saturations were monitored continuously. TheOlympus Pediatric Colonoscope was introduced through theanus and advanced to the cecum, identified byappendiceal orifice and ileocecal valve. The colonoscopy was performed without difficulty. The patient tolerated the procedure well. The quality of the bowel preparation was good. Findings: Hemorrhoids were found on perianal exam. A 6 mm polyp was found in the descending colon. The polyp was sessile. The polyp was removed with acold snare. Resection and retrieval were complete. Verification of patient identification for the specimen was done. Estimated blood loss wasminimal. Procedure Code(s): --- Professional --- 86872, Colonoscopy, flexible; with removal of tumor(s), polyp(s), or other lesion(s) by snare technique Diagnosis Code(s): --- Professional --- Z12.11, Encounter for screening for malignantneoplasm of colon K64.9, Unspecified hemorrhoids D12.4, Benign neoplasm of descending colon CPT copyright 2020 [employer]. All rights reserved. The codes documented in this report are preliminary and upon ui engineer reviewmay be revised to meet current compliance requirements. CHINO Larkin DO 07/19/2024 8:14:46 AM This report has been signed electronically.Chino Larkin DO Number of Addenda: 0 Note Initiated On: 07/19/2024 7:52 AM Scope Withdrawal Time: 0 hours 8 minutes 18 seconds Scope In: 8:01:10 AM Scope Out: 8:13:00 AM Endoscopy Department at [facility] - [address] [place] [phone] IMPRESSION: - Hemorrhoids found on perianal exam. - One 6 mm polyp in the descending colon, removedwith a cold snare. Resected and retrieved. Recommendation: - - Discharge patient to home. - High fiber diet. - Continue present medications. - Await pathology results. - Repeat colonoscopy for surveillance based on pathology results. Fabrizio Agee MD GI~PROCEDURE ORDERABLES Final R esult * Hepatitis C antibody (05/31/2024 4:14 PM EST) Hepatitis C Antibody Negative Negative LAB CHEMISTRY METHOD 05/31/2024 7:13 PM EST [facility] Blood Venous blood specimen / Unknown Venipuncture / Unknown 05/31/2024 4:14 PM EST 05/31/2024 4:14 PM EST Phi Davila [facility] BLOOD ORDERABLES Final Re sult Performing Organization Address [facility] de Phone Number [facility] [address] [place] [address], * HIV 1,2 antibody, p24 antigen with reflex to differentiation (05/31/2024 4:14 PM EST) HIV Combo AB/AG Negative Negative LAB CHEMISTRY [...] the current CDC recommendation for HIV screening. Phi Davila [facility] BLOOD ORDERABLES Final Re sult Performing Organization Address [facility] Co de Phone Number [facility] [address] [place] [address], * HPV with reflex genotype (05/31/2024 3:39 PM EST) HPV Negative Negative LAB MICROBIOLOGY METHOD 2024 2:26 PM EST [facility] Brushing Cervix uteri structure / Unknown 05/31/2024 3:39 PM EST 06/01/2024 9:44 AM EST Phi Davila CNM LAB MOLECULAR DIAGNOSTICS ORD ERABLES Final Result [facility] [address] [place] [address], * Lipid panel (06/14/2020) Pathologist [facility] LDL/HDL Ratio 0 Comment:no interpretation, a bstracted Triglycerides 0 mg/dL Comment:no interpretation, a bstracted Cholesterol 0 mg/dL Comment:no interpretation, a bstracted HDL 0 mg/dL Comment:no interpretation, a bstracted LDL Cholesterol 0 mg/dL Comment:no interpretation, a bstracted Blood Venous blood specimen / Unknown Historical Provider LAB BLOOD ORDERABLES Nuria l Result from Last 3 Months or Most Recently Relevant to Health Maintenance Insurance [facility] [place] [phone] [facility] Care Teams Pattern Illustrator Relationship Specialty Start Date End Date Shayy Means FNP [address] [place] [address] [place] [address] PCP - General Nurse Practitioner 07/19/24 Clinical Summary Created on: October 26, 2024 Marcel Patton : 1980 Sex: Female Author Organization [address] Address [address] [place] [address] Phone Care Team Providers Care Pattern Illustrator Name Role Phone Shayy Means Primary Care Provider Allergies Active Allergy Reactions Criticality Noted Date Comments Amoxicillin Rash 07/09/2024 Azithromycin Diarrhea 07/09/2024 Other 03/08/2020 Medications fluconazole (DIFLUCAN) 150 mg tablet 06/25/2022 Active norethindrone-et hinyl estradiol (MICROGESTIN 06/14) 1-20 mg-mcg per tablet Take 1 Tablet by mouth daily for 84 days. Then do not take a pill for one week 09/26/2022 Active loratadine 10 mg capsule Take by mouth. Active ibuprofen (ADVIL,MOTRIN) 800 mg tablet TAKE 1 TAB BY MOUTH EVERY 8 HOURS NEEDED FOR PAIN 06/05/2018 Active acetaminophen (TYLENOL) 325 mg tablet Take 2 Tabs by mouth every 4 hours as needed for Pain for up to 10 days. 10/31/2017 Active Active Problems Problem Noted Date Diagnosed Date Cutaneous candidiasis 06/25/2022 Overview (03/10/2024): Last Assessment & Plan: Treated with fluconazole which will also treat yeast vaginitis if present, although not noted under the microscope. Dysmenorrhea 10/22/2017 Dyspareunia in female 10/22/2017 Pelvic pain in female 10/22/2017 Encounters Date Type Department Care Team Description 09/08/2024 10:44 AM EDT - 09/08/2024 11:59 PM EDT Hospital Encounter Radiology Department - [address] [phone] Encounter for screening mammogram for breast cancer Discharge Disposition: Home or Self Care 08/06/2024 Telephone Obstetrics and Gynecology - [address] [phone] Ioana Eaton CNM 08/04/2024 2:59 PM EDT - 08/04/2024 11:59 PM EDT Hospital Encounter Radiology Department - [address] [phone] Pelvic pain; History of ovarian cyst Discharge Disposition: Home or Self Care 07/29/2024 11:00 AM EST Office Visit Obstetrics and Gynecology - [address] [phone] Ioana Eaton CNM Pelvic pain (Primary Dx); Screen for STD (sexually transmitted disease); History of ovarian cyst from Last 3 Months Surgical History Surgery Date Site/Laterality Comments TUBAL LIGATION 2000 PROCEDURE: HISTORICAL TUBAL LIGATION Family History Medical History Relation Name Comments Diabetes Father Hypertension Father Breast cancer Maternal Cousin Uterine cancer Other maternal aunt Hypertension Paternal Grandfather Hypertension Paternal Grandmother Colon cancer Neg Hx Ovarian cancer Neg Hx Pancreatic cancer Neg Hx Prostate cancer Neg Hx Relation Name Status Comments Father Maternal Cousin Alive Other Paternal Grandfather Paternal Grandmother Social History Tobacco Use Types Packs/Day Years Used Date Smoking Tobacco: Never Smokeless Tobacco: Never Tobacco Cessation:Counseling Given: Not Answered Alcohol Use Standard Drinks/Week Comments No 0 [...] your loved ones. For example, child and adolescent therapist or elderly care for an older [...] What is your living situation? 1 06/12/2023 Interpersonal Safety Answer Date Record ed Physical Abuse 07/19/2024 Verbal Abuse 07/19/2024 Comments No Sex and Gender Information Value Date Recorded Sex Assigned at Female 07/19/2024 6:58 AM EST Legal Sex Female 10:47 PM EST Gender Identity Female 07/19/2024 6:58 AM EST Sexual Orientation Straight 07/19/2024 6: 58 AM EST Obstetrics History Para Term AB IAB SAB [...] Sign Reading Time Taken Comments Blood Pressure 130/80 07/29/2024 11:23 AM EST Pulse 75 07/29/2024 11:23 AM EST Temperature 36.1 ??C (97 ??F) 07/19/2024 7:20 AM EST Respiratory Rate 14 07/19/2024 8:35 AM EST Oxygen Saturation 100% 07/19/2024 8:35 AM EST Inhaled Oxygen Concentration - - Weight 72.6 kg (160 lb) 07/29/2024 11:23 AM EST Height 162.6 cm (5' 4 ) 07/19/2024 7:20 AM EST Body Mass Index 27.46 07/19/2024 7:20 AM EST Plan of Treatment Upcoming Encounters Date Type Department Care Team (Late st Contact Info) Description 09/15/2025 11:20 AM EDT Appointment Radiology Department [address] [phone] Health Maintenance Due Date Last Done Comments DTaP,Tdap,and Td Vaccines (1 - Tdap) 1998 Hepatitis B Vaccines (1 of 3 - 19+ 3-dose series) 1998 COVID-19 Vaccine ( - season) 2024 01/20/2021, 12/30/2020 Influenza Vaccine (Season Ended) 2025 Social Influencers of Health Screening 04/12/2025 04/12/2024 Depression Screening 05/30/2025 05/30/2024 Cholesterol Screening (Lipid Panel) 06/14/2025 06/14/2020 Breast Cancer Screening 09/08/2026 09/09/19 25, 08/27/2023, 08/27/2023, Additional history exists Cervical Cancer Screening: HPV 05/31/2029 05/31/2024, 01/24/2020 Colorectal Cancer Screening: Colonoscopy 07/19/2034 07/19/2024 HIV Screening Completed 05/31/2024, 09/26/2022 Hepatitis C [...] age to complete this topic Meningococcal B Vaccine Aged Out No l onger eligible based on patient's age to complete [...] Procedure Name Priority Date/Time Associated Diagnosis Comments MG MAMMO DIGITAL SCREENING W GABO BILAT Routine 09/08/2024 10:58 AM EDT Encounter for screening mammogram for breast cancer US DUPLEX ABDOMEN/PELVIS/RETRO COMPLETE Routine 08/04/2024 3:33 PM EDT Pelvic pain History of ovarian cyst US PELVIS NON OB COMPLETE W TRANSVAGINAL Routine 08/04/2024 3:33 PM EDT Pelvic pain History of ovarian cyst TRICHOMONAS VAGINALIS ANTIGEN Routine 07/29/2024 11:54 AM EST Pelvic pain CHLAMYDIA TRACHOMATIS AND NEISSERIA GONORRHOEAE PCR Routine 07/29/2024 11:54 AM EST Pelvic pain Screen for STD (sexually transmitted disease) WET PREP, GENITAL Routine 07/29/2024 11: 54 AM EST Pelvic pain POC URINE AUTO W/O MICRO Routine 07/29/2024 11:25 AM EST Pelvic pain POC , URINE DIAGNOSTIC Routine 07/29/2024 11:25 AM EST Pelvic pain COLONOSCOPY Routine 07/19/2024 8:14 AM EST Colon cancer screening HEPATITIS C ANTIBODY Routine 05/31/2024 4:14 PM EST Encounter for screening for viral disease HIV 1, 2 ANTIBODY, P24 ANTIGEN WITH REFLEX TO DIFFERENTIATION Routine 05/31/2024 4:14 PM EST Encounter for screening for viral disease HPV WITH REFLEX GENOTYPE Routine 05/31/2024 3:39 PM EST Encounter for annual physical examination excluding gynecological examination in a patient older than 17 years LIPID PANEL Routine 06/14/2020 from Last 3 Months or Most Recently Relevant to Health Maintenance Results * MG Mammo Digital Screening w Gabo bilat (09/08/2024 10:58 AM EDT) Anatomical Region Laterality Modality Breast Bilateral Mammography 09/08/2024 12:1 0 PM EDT Impressions 09/08/2024 12:12 PM EDT BILATERAL BREASTS: Negative, no evidence of malignancy. Normal interval follow- up is recommended in 12 months. BREAST DENSITY: C - The breasts are heterogeneously dense which may obscure small masses. BI-RADS CATEGORY: 1 - NEGATIVE RECOMMENDATION: Screening bilateral mammogram is recommended in 1 year. Mammo Location: [facility], [address] [place] [address], [id number], . -------- FINAL REPORT -------- Dictated By: Penelope Mccall Dictated Date: 09/08/2024 12:10 ET Assigned Physician: Penelope Mccall Reviewed and Electronically Signed By: Penelope Mccall Signed Date: 09/08/2024 12:12 ET Workstation ID: [id number] Transcribed By: Self Edit Transcribed Date: 09/08/2024 12:10 ET Narrative 09/08/2024 12:12 PM EDT STUDY: Bilateral screening mammography with tomosynthesis and CAD TECHNIQUE: Bilateral full-field digital screening mammography is obtained and read in conjunction with computer-aided detection. ??Tomosynthesis as well as 2-D C view imaging were obtained. ?? COMPARISON: Comparison made to multiple prior, most recent August 27, 2023, and most remote May 17, 2020. BILATERAL BREASTS: No significant masses, suspicious calcifications or other abnormalities are seen in either breast. Procedure Note Penelope Mccall MD - 09/08/2024 STUDY: Bilateral screening mammography with tomosynthesis and CAD TECHNIQUE: Bilateral full-field digital screening mammography is obtainedand read in conjunction with computer-aided detection. Tomosynthesis aswell as 2-D C view imaging were obtained. COMPARISON: Comparison made to multiple prior, most recent August 27, 2023,and most remote May 17, 2020. BILATERAL BREASTS: No significant masses, suspicious calcifications orother abnormalities are seen in either breast. IMPRESSION: BILATERAL BREASTS: Negative, no evidence of malignancy. Normal intervalfollow-up is recommended in 12 months. BREAST DENSITY: C - The breasts are heterogeneously dense which mayobscure small masses. BI-RADS CATEGORY: 1 - NEGATIVE RECOMMENDATION: Screening bilateral mammogram is recommended in 1 year. Mammo Location: [facility], [address] [place] [address], [id number], . -------- FINAL REPORT -------- Dictated By: Penelope Mccall Dictated Date: 09/08/2024 12:10 ET Assigned Physician: Penelope Mccall Reviewed and Electronically Signed By: Penelope Mccall Signed Date: 09/08/2024 12:12 ET Workstation ID: [id number] Transcribed By: Self Edit Transcribed Date: 09/08/2024 12:10 ET us Ioana Eaton CNM IMG BI PROCEDURES Final Result * US Pelvis Non OB Complete w Transvaginal (08/04/2024 3:33 PM EDT) Anatomical Region Laterality Modality Body, Pelvis Ultrasound 08/04/2024 3:43 PM EDT Impressions 08/04/2024 3:48 PM EDT Physiologic follicular appearance of both ovaries. -------- FINAL REPORT -------- Dictated By: Penelope Mccall Dictated Date: 08/04/2024 15:43 ET Assigned Physician: Penelope Mccall Reviewed and Electronically Signed By: Penelope Mccall Signed Date: 08/04/2024 15:48 ET Workstation ID: [id number] Transcribed By: Self Edit Transcribed Date: 08/04/2024 15:43 ET Narrative 08/04/2024 3:48 PM EDT EXAM(s): ?? US PELVIS NON OB COMPLETE W TRANSVAGINAL, US DUPLEX ABDOMEN/PELVIS/RETRO COMPLETE COMPARISON: None HISTORY: left pelvic pain, hx of left complex ovarian cyst FINDINGS: UTERUS: The uterus is retroflexed, measures 7.6 x 4.4 x 6.3 cm, volume of 110.3 cm3, and demonstrates heterogeneous myometrial echotexture. ??Previously seen cystic area is no longer seen. ??The endometrial echocomplex measures 1.5 cm in thickness. RIGHT OVARY: 3.3 x 2.0 x 1.9 cm, volume of 6.6 cm3. Normal follicular appearance. Normal arterial and venous flow is demonstrated with color and spectral Doppler. LEFT OVARY: 3.8 x 3.0 x 2.7 cm, volume of 16.1 cm3. Normal follicular appearance with dominant follicular cyst measuring 2.3 x 1.7 x 2.2 cm. Normal arterial and venous flow is demonstrated with color and spectral Doppler. PELVIS: No free fluid. Procedure Note Penelope Mccall MD - 08/04/2024 EXAM(s): US PELVIS NON OB COMPLETE W TRANSVAGINAL, US DUPLEXABDOMEN/PELVIS/RETRO COMPLETE COMPARISON: None HISTORY: left pelvic pain, hx of left complex ovarian cyst FINDINGS: UTERUS: The uterus is retroflexed, measures 7.6 x 4.4 x 6.3 cm, volume of110.3 cm3, and demonstrates heterogeneous myometrial echotexture.Previously seen cystic area is no longer seen. The endometrialechocomplex measures 1.5 cm in thickness. RIGHT OVARY: 3.3 x 2.0 x 1.9 cm, volume of 6.6 cm3. Normal follicularappearance. Normal arterial and venous flow is demonstrated with color andspectral Doppler. LEFT OVARY: 3.8 x 3.0 x 2.7 cm, volume of 16.1 cm3. Normal follicularappearance with dominant follicular cyst measuring 2.3 x 1.7 x 2.2 cm.Normal arterial and venous flow is demonstrated with color and spectralDoppler. PELVIS: No free fluid. IMPRESSION: Physiologic follicular appearance of both ovaries. -------- FINAL REPORT -------- Dictated By: Penelope Mccall Dictated Date: 08/04/2024 15:43 ET Assigned Physician: Penelope Mccall Reviewed and Electronically Signed By: Penelope Mccall Signed Date: 08/04/2024 15:48 ET Workstation ID: [id number] Transcribed By: Self Edit Transcribed Date: 08/04/2024 15:43 ET us Ioana Eaton CNM IM US PROCEDURES Final Result * US Duplex Abdomen/Pelvis/Retro Complete (08/04/2024 3:33 PM EDT) Anatomical Region Laterality Modality Body Ultrasound 08/04/2024 3:43 PM EDT Impressions 08/04/2024 3:48 PM EDT Physiologic follicular appearance of both ovaries. -------- FINAL REPORT -------- Dictated By: Penelope Mccall Dictated Date: 08/04/2024 15:43 ET Assigned Physician: Penelope Mccall Reviewed and Electronically Signed By: Penelope Mccall Signed Date: 08/04/2024 15:48 ET Workstation ID: [id number] Transcribed By: Self Edit Transcribed Date: 08/04/2024 15:43 ET Narrative 08/04/2024 3:48 PM EDT EXAM(s): ?? US PELVIS NON OB COMPLETE W TRANSVAGINAL, US DUPLEX ABDOMEN/PELVIS/RETRO COMPLETE COMPARISON: None HISTORY: left pelvic pain, hx of left complex ovarian cyst FINDINGS: UTERUS: The uterus is retroflexed, measures 7.6 x 4.4 x 6.3 cm, volume of 110.3 cm3, and demonstrates heterogeneous myometrial echotexture. ??Previously seen cystic area is no longer seen. ??The endometrial echocomplex measures 1.5 cm in thickness. RIGHT OVARY: 3.3 x 2.0 x 1.9 cm, volume of 6.6 cm3. Normal follicular appearance. Normal arterial and venous flow is demonstrated with color and spectral Doppler. LEFT OVARY: 3.8 x 3.0 x 2.7 cm, volume of 16.1 cm3. Normal follicular appearance with dominant follicular cyst measuring 2.3 x 1.7 x 2.2 cm. Normal arterial and venous flow is demonstrated with color and spectral Doppler. PELVIS: No free fluid. Procedure Note Penelope Mccall MD - 08/04/2024 EXAM(s): US PELVIS NON OB COMPLETE W TRANSVAGINAL, US DUPLEXABDOMEN/PELVIS/RETRO COMPLETE COMPARISON: None HISTORY: left pelvic pain, hx of left complex ovarian cyst FINDINGS: UTERUS: The uterus is retroflexed, measures 7.6 x 4.4 x 6.3 cm, volume of110.3 cm3, and demonstrates heterogeneous myometrial echotexture.Previously seen cystic area is no longer seen. The endometrialechocomplex measures 1.5 cm in thickness. RIGHT OVARY: 3.3 x 2.0 x 1.9 cm, volume of 6.6 cm3. Normal follicularappearance. Normal arterial and venous flow is demonstrated with color andspectral Doppler. LEFT OVARY: 3.8 x 3.0 x 2.7 cm, volume of 16.1 cm3. Normal follicularappearance with dominant follicular cyst measuring 2.3 x 1.7 x 2.2 cm.Normal arterial and venous flow is demonstrated with color and spectralDoppler. PELVIS: No free fluid. IMPRESSION: Physiologic follicular appearance of both ovaries. -------- FINAL REPORT -------- Dictated By: Penelope Mccall Dictated Date: 08/04/2024 15:43 ET Assigned Physician: Penelope Mccall Reviewed and Electronically Signed By: Penelope Mccall Signed Date: 08/04/2024 15:48 ET Workstation ID: [id number] Transcribed By: Self Edit Transcribed Date: 08/04/2024 15:43 ET us Ioana Eaton CNM IMG US PROCEDURES Final Result * Trichomonas vaginalis antigen (07/29/2024 11:54 AM EST) Trichomonas vaginalis Negative Negative 07/29/2024 7:31 PM EST [facility] Swab Vaginal structure / Unknown Non-blood Collection / Unknown 07/29/2024 11:54 AM EST 07/29/2024 11:54 AM EST Ioana Eaton CNM LAB MICROBIOLOGY - GENERAL ORD ERABLES Final Result [facility] [address] [place] [address], * Chlamydia trachomatis and Neisseria gonorrhoeae molecular study (07/29/2024 11:54 AM EST) Neisseria gonorrhoeae PCR Negative Negative LAB MOLECULAR DIAGNOSTICS METHOD 07/29/2024 9:34 PM EST [facility] Chlamydia trachomatis PCR Negative Negative LAB MOLECULAR DIAGNOSTICS METHOD 07/29/2024 9:34 PM EST [facility] Swab Cervix uteri structure / Unknown Non-blood Collection / Unknown 07/29/2024 11:54 AM EST 07/29/2024 11:54 AM EST Ioana Sethies CHRIS LAB MICROBIOLOGY - GENERAL ORD ERABLES Final Result [facility] [address] [place] [address], * Wet prep, genital (07/29/2024 11:54 AM EST) Clue Cells, Wet Prep Negative Negative 07/29/2024 7:28 PM EST [facility] Yeast, Wet Prep Negative Negative 07/29/2024 7:28 PM EST [facility] Trichomonas, Wet Prep Indeterminate Negative 07/29/2024 7:28 PM EST [facility] Comment:Refer to Trichomonas antigen. Swab Vaginal structure / Unknown Non-blood Collection / Unknown 07/29/2024 11:54 AM EST 07/29/2024 11:54 AM EST Ioana Eaton [facility] MICROBIOLOGY - GENERAL ORD ERABLES Final Result [facility] [address] [place] [address], * POC Urine Auto W/O Micro (07/29/2024 11:25 AM EST) Leukocytes UA POC Negative Negative Nitrite UA POC Negative Negative Urobilinogen UA POC Negative Negative Protein UA POC Negative Negative PH UA POC 6.5 5.0 - 9.0 Blood UA POC Negative Negative, Trace Specific Placida UA POC 1.015 1.001 - 1.035 Ketones UA POC Negative Negative Bilirubin UA POC Negative Negative Glucose UA POC Normal Normal, Trace Urine Urine specimen obtained by clean catch procedure / Unknown 07/29/2024 11:25 AM EST us Ioana Eaton [facility] POINT OF CARE TEST ENTER/EDIT ORDERABLES Final Result * POC , urine manually resulted (07/29/2024 11:25 AM EST) HCG, Ur POC Negative Negative POC hCG Int QC Pass? Yes Yes Urine Urine specimen obtained by clean catch procedure / Unknown 07/29/2024 11:25 AM EST Ioana Eaton CNM POINT OF CARE TEST ENTER/EDIT ORDERABLES Final Result * COLONOSCOPY Anesthesia - MAC; [facility] ENDOSCOPY (07/19/2024 8:14 AM EST) Anatomical Region Laterality Modality Endoscopy 07/19/2024 7:52 AM EST Impressions 07/19/2024 8:14 AM EST - Hemorrhoids found on perianal exam. ? - One 6 mm polyp in the descending colon, removed with ? a cold snare. Resected and retrieved. Recommendation: ?- - Discharge patient to home. ? - High fiber diet. ? - Continue present medications. ? - Await pathology results. ? - Repeat colonoscopy for surveillance based on ? pathology results. Narrative 07/19/2024 8:14 AM EST [facility] GI Patient Name: Marcel Patton Procedure Date: 07/19/2024 7:52 AM Date of : 1980 Age: 44 Gender: Female Note Status: Finalized Attending MD: Chino Larkin DO, [id number] Procedure Date No Time: 07/19/2024 Procedure: ? Colonoscopy Indications: ? Screening for colorectal malignant neoplasm Providers: ? Chino Larkin DO Referring MD: ?Phi Davila CNM Medicines: ? Monitored Anesthesia Care Complications: ? No immediate complications. Estimated blood loss: ? Minimal. Estimated Blood Loss: ? Estimated blood loss was minimal. Procedure: ? Pre-Anesthesia Assessment: ? - Prior to the procedure, a History and Physical was ? performed, and patient medications and allergies were ? reviewed. The patient is competent. The risks and ? benefits of the procedure and the sedation options and ? risks were discussed with the patient. All questions ? were answered and informed consent was obtained. ? Patient identification and proposed procedure were ? verified by the physician, the nurse, the ? anesthesiologist, the surveillance observer and the equine pharmacology technician ? in the pre-procedure area in the endoscopy suite. ? Mental Status Examination: alert and oriented. Airway ? Examination: normal oropharyngeal airway and neck ? mobility. Respiratory Examination: clear to ? auscultation. CV Examination: normal. Prophylactic ? Antibiotics: The patient does not require prophylactic ? antibiotics. Prior Anticoagulants: The patient has ? taken no anticoagulant or antiplatelet agents. ASA ? Grade Assessment: II - A patient with severe systemic ? disease. After reviewing the risks and benefits, the ? patient was deemed in satisfactory condition to ? undergo the procedure. The anesthesia plan was to use ? monitored anesthesia care (MAC). Immediately prior to ? administration of medications, the patient was ? re-assessed for adequacy to receive sedatives. The ? heart rate, respiratory rate, oxygen saturations, ? blood pressure, adequacy of pulmonary ventilation, and ? response to care were monitored throughout the ? procedure. The physical status of the patient was ? re-assessed after the procedure. ? After I obtained informed consent, the scope was ? passed under direct vision. Throughout the procedure, ? the patient's blood pressure, pulse, and oxygen ? saturations were monitored continuously. The Olympus ? Pediatric Colonoscope was introduced through the anus ? and advanced to the cecum, identified by appendiceal ? orifice and ileocecal valve. The colonoscopy was ? performed without difficulty. The patient tolerated ? the procedure well. The quality of the bowel ? preparation was good. Findings: ?Hemorrhoids were found on perianal exam. ? A 6 mm polyp was found in the descending colon. The ? polyp was sessile. The polyp was removed with a cold ? snare. Resection and retrieval were complete. ? Verification of patient identification for the ? specimen was done. Estimated blood loss was minimal. Procedure Code(s): ? --- Professional --- ? 31706, Colonoscopy, flexible; with removal of ? tumor(s), polyp(s), or other lesion(s) by snare ? technique Diagnosis Code(s): ? --- Professional --- ? Z12.11, Encounter for screening for malignant neoplasm ? of colon ? K64.9, Unspecified hemorrhoids ? D12.4, Benign neoplasm of descending colon CPT copyright 2020 [employer]. All rights reserved. The codes documented in this report are preliminary and upon ui engineer review may be revised to meet current compliance requirements. CHINO Larkin DO 07/19/2024 8:14:46 AM This report has been signed electronically.Chino Larkin DO Number of Addenda: 0 Note Initiated On: 07/19/2024 7:52 AM Scope Withdrawal Time: 0 hours 8 minutes 18 seconds Scope In: 8:01:10 AM Scope Out: 8:13:00 AM ? Endoscopy Department at [facility] - [address] [place] [address], ? [place] [address] Procedure Note Chino Larkin DO - 07/19/2024 [facility] GI Patient Name: Marcel Patton Procedure Date: 07/19/2024 7:52 AM Date of : 1980 Age: 44 Gender: Female Note Status: Finalized Attending MD: Chino Larkin DO, [id number] Procedure Date No Time: 07/19/2024 Procedure: Colonoscopy Indications: Screening for colorectal malignant neoplasm Providers: Chino Larkin DO Referring MD: Phi Davila CNM Medicines: Monitored Anesthesia Care Complications: No immediate complications. Estimated blood loss: Minimal. Estimated Blood Loss: Estimated blood loss was minimal. Procedure: Pre-Anesthesia Assessment: - Prior to the procedure, a History and Physicalwas performed, and patient medications and allergieswere reviewed. The patient is competent. The risks and benefits of the procedure and the sedation optionsand risks were discussed with the patient. Allquestions were answered and informed consent was obtained. Patient identification and proposed procedure were verified by the physician, the nurse, the anesthesiologist, the surveillance observer and thetechnician in the pre-procedure area in the endoscopy suite. Mental Status Examination: alert and oriented.Airway Examination: normal oropharyngeal airway and neck mobility. Respiratory Examination: clear to auscultation. CV Examination: normal. Prophylactic Antibiotics: The patient does not requireprophylactic antibiotics. Prior Anticoagulants: The patient has taken no anticoagulant or antiplatelet agents. ASA Grade Assessment: II - A patient with severesystemic disease. After reviewing the risks and benefits,the
== END 2024-10-26 15:43 | disposition home or self-care (01) ==
LOC: HO.HMCFM 15:00
PROVIDERS: PCP Nurse Practitioner Family; Visit Provider Nurse Practitioner Family
DX: Z00.01 Encounter for general adult medical examination with abnormal findings (principal); R10.13 Epigastric pain; R10.9 Unspecified abdominal pain; G89.29 Other chronic pain; R14.2 Eructation; E55.9 Vitamin D deficiency, unspecified; Z23 Encounter for immunization; Z91.09 Other allergy status, other than to drugs and biological substances; J45.909 Unspecified asthma, uncomplicated

== ENCOUNTER → 2024-10-26 14:59 | Outpatient (BNVA) | payer OTHER, SELFPAY | PROVIDERS: PCP Nurse Practitioner Family; Visit Provider Nurse Practitioner Family | DX: Z13.89 Encounter for screening for other disorder (principal) ==

== ENCOUNTER 2024-10-26 15:33 | Outpatient (REF) | payer OTHER, SELFPAY ==
[2024-10-26 19:12] LABS: Alanine Aminotransferase 24 U/L (0-31); Albumin Level 4.2 g/dL (3.5-5.0); Alkaline Phosphatase 76 U/L (39-117); Anion Gap 10 (12-20); Aspartate Amino Transferase 22 U/L (5-31); Bilirubin Total 0.3 mg/dL (0.0-1.0); Blood Urea Nitrogen 11 mg/dL (9-16); Calcium 9.5 mg/dL (8.4-10.2); Carbon Dioxide 25 mmol/L (22-29); Chloride 109 mmol/L (96-108); Cholesterol 171 mg/dL (<200); Estimated Glomerular Filt Rate > 60; Glucose Random 87 mg/dL (60-115); HDL Cholesterol 23 mg/dL (>40); Potassium 3.7 mmol/L (3.3-5.1); Sodium 140 mmol/L (135-145); Total Protein 7.6 g/dL (6.5-8.0); Triglycerides 493 mg/dL (<150)
[2024-10-26 19:23] LABS: Folate 11.7 ng/mL (> or = 4.0); Vitamin B12 212 pg/mL (200-900)
[2024-10-26 19:27] LABS: TSH reflex Free T4 1.48 uIU/mL (0.32-4.0); Vitamin D 25-OH Total 35.1 ng/mL (>30)
[2024-10-27 05:49] LABS: Estimated Average Glucose 111 mg/dL; Hemoglobin A1c % 5.5 % (<6.0)
== END 2024-10-26 15:34 | disposition home or self-care (01) ==
LOC: HO.WFDLDS 15:33
PROVIDERS: Visit Provider Nurse Practitioner Family
DX: Z00.01 Encounter for general adult medical examination with abnormal findings (principal); Z23 Encounter for immunization; R10.13 Epigastric pain; G89.29 Other chronic pain; R14.2 Eructation; E55.9 Vitamin D deficiency, unspecified; J45.909 Unspecified asthma, uncomplicated; Z91.09 Other allergy status, other than to drugs and biological substances
CPT/HCPCS: 36415; 80053; 80061; 82043; 82306; 82570; 82607; 82746; 83036; 84443; 90471; 90715; 96127

== ENCOUNTER 2024-10-27 14:41 | Outpatient (REF) | payer OTHER, SELFPAY ==
[2024-10-27 16:43] LABS: Creatinine Urine 98.75 mg/dL; Microalbumin Urine < 5.0 mg/L
== END 2024-10-27 14:42 | disposition home or self-care (01) ==
LOC: HO.HMGCLDS 14:41
PROVIDERS: PCP Nurse Practitioner Family; Visit Provider Nurse Practitioner Family
DX: Z00.01 Encounter for general adult medical examination with abnormal findings (principal)
CPT/HCPCS: 82570

== ENCOUNTER 2025-02-02 10:59 | Emergency (ER) | payer OTHER, SELFPAY ==
--- NOTE | 2025-02-02 | ECG_ITS ---
Test Reason : CHEST TIGHTNESS Blood Pressure : */* mmHG Vent. Rate : 78 BPM Atrial Rate : 78 BPM P-R Int : 156 ms QRS Dur : 80 ms QT Int : 362 ms P-R-T Axes : 33 12 47 degrees QTcB Int : 412 ms Normal sinus rhythm Nonspecific ST and T wave abnormality Abnormal ECG When compared with ECG of 31-Jan-2020 21:20, Vent. rate has decreased by 53 bpm Non-specific change in ST segment in Inferior leads Nonspecific T wave abnormality, improved in Inferior leads Referred By: Generic ED Physician Electronically Signed By: BURAK LOPEZ MD
--- NOTE | ~2025-02-02 | XR_ITS ---
EXAMINATION: XR CHEST CLINICAL INFORMATION: chest pain COMPARISON: 05/08/2021 TECHNIQUE: 2 views of the chest were obtained. FINDINGS: No significant abnormality is noted involving the heart, lungs, mediastinum, bony thorax or soft tissues. XR/XR chest 2V IMPRESSION: Unremarkable examination. Electronically signed by: Valerio Schroeder MD 02/02/2025 11:22 AM EDT
[2025-02-02 11:10] VITALS: BP 151/74; PULSE 76; RESP 18; TEMP 36.9; O2SAT 100; BMI 28.3
[2025-02-02 11:37] LABS: MANUAL DIFF FLAG NO
[2025-02-02 11:40] LABS: Hematocrit 36.7 % (37.0-47.0); Hemoglobin 12.4 g/dl (12.0-16.0); Imm Gran Abs Auto 0.01 X10*3/uL (0.00-0.03); Imm Gran Pct Auto 0.2 % (0.0-0.4); Lymphocytes Absolute Auto 1.5 X10*3/uL (1.2-4.9); Mean Corpuscular HGB Conc 33.8 g/dl (31.0-35.0); Mean Corpuscular Hemoglobin 26.6 pg (27.0-33.0); Mean Corpuscular Volume 78.6 fL (80.0-98.0); NRBC Abs Auto 0.000 X10*3/uL (0.0-0.012); NRBC Pct Auto 0.0 /100WBC (0.0-0.2); Platelet Count 259 X10*3/uL (160-400); Red Blood Count 4.67 X10*6/uL (4.20-5.50); White Blood Count 5.4 X10*3/uL (4.8-10.8)
--- NOTE | 2025-02-02 11:51 | ED_ITS ---
HPI - Chest Pain General Chief Complaint: Chest Pain Stated Complaint: chest tightness, sent from work. Time Seen by Provider: 02/02/25 14:13 Source: patient Mode of arrival: ambulatory Limitations: no limitations History of Present Illness ED Provider: Adelaida Juarez PA-C HPI narrative: Patient is a 44 year old assigned female at with a history of HLD presenting to the emergency department today with intermittent chest tightness. 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 Patient states that when she removes herself from the building she feels much better. Patient denies any other complaints at this time. Related Data Home Medications ?Medication ?Instructions ?Recorded ?Confirmed acetaminophen 500 mg tablet 1,000 mg PO Q6H PRN pain 0 08/15/20 10/26/24 Previous Rx's ?Medication ?Instructions ?Recorded albuterol sulfate 90 mcg/actuation 2 puff inhalation Q 4-6H PRN 10/26/24 aerosol inhaler (Ventolin HFA) shortness of breath or wheezing #8.5 grams celecoxib 100 mg capsule 100 mg PO DAILY PRN pain #30 caps 10/26/24 cholecalciferol (vitamin D3) 25 25 mcg PO DAILY #90 ca ps 10/26/24 mcg (1,000 unit) capsule (Vitamin D3) loratadine 10 mg tablet (Allergy 10 mg PO DAILY PRN al lergy 10/26/24 Relief (loratadine)) symptoms 90 days #90 tabs atorvastatin 20 mg tablet 20 mg PO BEDTIME #90 tabs prednisone 20 mg tablet 40 mg (2 x 20 mg) PO DAILY C OPD 02/02/25 exacerbation 5 days #10 tabs Allergies Allergy/AdvReac Type Severity Reaction Status Date / Time amoxicillin (From Augmentin) Allergy Mild rash Verified 02/02/25 11:12 clavulanic acid (From Allergy Mild rash Verified 02/02/25 11:12 Augmentin) SEASONAL ALLERGIES Allergy Mild RUNNY NOSE Uncoded 02/02/25 11:12 Review of Systems 2 Constitutional: Constitutional: Reports as per HPI Eyes: Eyes: Reports as per HPI ENT: Reports as per HPI Cardiovascular: Cardiovascular: Reports as per HPI Respiratory: Respiratory: Reports as per HPI Gastrointestinal: Gastrointestinal: Reports as per HPI Genitourinary: Genitourinary: Reports as per HPI Musculoskeletal: Musculoskeletal: Reports as per HPI Integumentary/Breasts: Skin/Breast: Reports as per HPI Neurologic: Reports as per HPI Psychiatric: Psychiatric: Reports as per HPI Endocrine: Endocrine: Reports as per HPI Hematologic/Lymphatic: Hematologic/Lymphatic: Reports as per HPI Allergic/Immunologic: Allergic/Immunologic: Reports as per HPI [facility] Past Medical History Attestation statement: The following information was validated with the patient. Source: old records reviewed and nursing notes reviewed Medical History H. pylori infection Gastroenteritis due to norovirus Hydronephrosis Otitis media Overweight History of endometriosis Surgical History History of colonoscopy (~06/2024) History of tubal ligation H/O laparoscopy Family History Family History Father Diabetes Mother Hypertension Maternal Aunt Cancer Family/Other Cancer Social History Social History Housing: House Alcohol intake: never Patient Tobacco Use Status: Never used Tobacco e-Cigarette/Vaping Use: Never Used Second Hand Smoke Exposure: No Advance Directives: No Advance Directives Information Provided: Yes Do you have a plan to hurt others: No Plan service: No Current occupational status: employed 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 Current occupational exposures/hazards: No Cognitive needs: No Hearing needs: No Vision needs: No (glasses) Physical Exam 2 Vital Signs: Vital Signs: Last Vital Signs Temp 98.4 F 02/02/25 14:42 Pulse 76 02/02/25 14:42 Resp 18 02/02/25 14:42 BP 151/74 H 02/02/25 14:42 Pulse Ox 100 02/02/25 14:42 O2 Del Method Room Air 02/02/25 14:42 BMI result Body Mass Index 28.3 Const: General: cooperative, no acute distress, alert and awake Nutritional Appearance: well nourished Orientation/consciousness: patient oriented x3 HEENT: Head: Yes normal to inspection and Yes atraumatic Ears: hearing grossly normal bilaterally and external ears normal General nose exam: Normal external nose present, no nasal discharge noted and no epistaxis Face and sinus: Yes normal facial exam, No abrasion and No laceration Mouth: Normal oral and palatal mucosa present, no drooling and no muffled voice Eyes: General: appearance normal, both eyes and all related structures P eriorbital: periorbital findings normal Eyelids: Yes eyelids normal C onjunctivae: conjunctivae normal Pupils: Equal, round and reactive pupils present EOM: EOMs intact bilaterally Neck: Neck: Yes normal visual inspection and Yes full ROM Resp: Effort & Inspection: normal respiratory effort and able to speak in complete sentences Neuro: General: patient oriented x3, moves all extremities and CN's II-XI intact bilaterally Cranial nerves: Yes Equal, round and reactive pupils present Cognition (Neuro): normal cognition Extrem: General: Yes normal to inspection, Yes full ROM and Yes capillary refill normal Psych: Appearance: grossly normal Mental Status: mental status grossly normal Affect: normal affect Attitude: cooperative Thought process: N ormal thought process present Thought content: Normal thought content present Insight: Good insight present (Psych) Course Course Course Narrative: This is a Rapid Medical Examination (RME) performed by Shekhar Moran PA-C in triage. Full HPI, ROS, assessment and treatment plan per primary provider in the Main ED. Hx: 44 yo F here for eval of chest tightness this morning while the floors were being re-done at her work. Plan: labs, ekg, cxr Medical Decision Making Medical Decision Making [facility] Narrative: Patient is a 44 year old assigned female at with a history of HLD presenting to the emergency department today with intermittent chest tightness. Patient's physical exam was unremarkable. Patient's blood work was unremarkable. Patient's EKG was unremarkable. Patient's chest x-ray showed no acute process. Patient's clinical presentation is most consistent with reactive airway disease / inhalation irritant. I explained my physical exam findings as well as all test results to the patient. I answered all questions asked by the patient. I stressed the importance of the patient taking her medication as directed (either prescribed or as the over the counter packaging recommends). I stressed the importance of the patient following up with her primary care provider. I stressed the importance of the patient returning to the emergency department immediately if her symptoms were to worsen or if she were to develop any dizziness, shortness of breath, difficulty breathing, chest pain, blurry vision, loss of vision, nausea, vomiting, abdominal pain, fever, chills, back pain, or any other complaints. Patient verbalized agreement and understanding with this treatment plan and discharge. Differential Diagnosis Differential Diagnoses: The differential diagnosis associated with the presentation includes Chest tightness Intermittent chest tightness Reactive airway disease Inhalation injury Admission/Observation Consideration of admission/observation: Escalation of care including admission/observation considered Patient would have been admitted to the hospital had her work up had any findings where hospital admission was appropriate and her clinical presentation warranted hospital admission. Lab Data [facility] Lab Attestation statement: I reviewed the patient's lab results. My interpretation of these results are in the [facility] Rationale portion of this note. 02/02/25 11:31 02/02/25 11:31 Labs: Lab Results 02/02/25 Range/Units 11:31 WBC 5.4 (4.8-10.8) X10*3/uL RBC 4.67 (4.20-5.50) X10*6/uL Hgb 12.4 (12.0-16.0) g/dl Hct 36.7 L (37.0-47.0) % MCV 78.6 L (80.0-98.0) fL MCH 26.6 L (27.0-33.0) pg MCHC 33.8 (31.0-35.0) g/dl RDW 13.7 (11.0-16.0) % Plt Count 259 (160-400) X10*3/uL MPV 9.2 L (9.4-12.3) fL Immature Gran % (Auto) 0.2 (0.0-0.4) % Neut % (Auto) 60.3 (45-73) % Lymph % (Auto) 27.1 (20-40) % Burnett % (Auto) 8.5 (2-11) % Eos % (Auto) 2.6 (0-4) % Baso % (Auto) 1.3 (0-2) % Lymph # (Auto) 1.5 (1.2-4.9) X10*3/uL Burnett # (Auto) 0.5 (0.1-1.2) X10*3/uL Eos # (Auto) 0.1 (0.0-0.4) X10*3/uL Baso # (Auto) 0.1 (0.0-0.2) X10*3/uL Abs Immat Gran (auto) 0.01 (0.00-0.03) X10*3/uL Absolute Neuts (auto) 3.3 (2.0-8.3) x10*3/uL Absolute Nucleated RBC 0.000 (0.0-0.012) X10*3/uL Nucleated RBC % (auto) 0.0 (0.0-0.2) /100WBC Sodium 141 (135-145) mmol/L Potassium 3.5 (3.3-5.1) mmol/L Chloride 109 H (96-108) mmol/L Carbon Dioxide 26 (22-29) mmol/L Anion Gap 10 L (12-20) BUN 8 L (9-16) mg/dL Creatinine 0.73 (0.5-1.4) mg/dL Estim Creat Clear Calc 96.4 Estimated GFR > 60 Random Glucose 97 (60-115) mg/dL Calcium 9.0 (8.4-10.2) mg/dL Magnesium 2.1 (1.6-2.6) mg/dL Total Bilirubin 0.2 (0.0-1.0) mg/dL AST 24 (5-31) U/L ALT 19 (0-31) U/L Alkaline Phosphatase 74 (39-117) U/L Troponin I High Sens < 2.7 (<3.5-17.0) ng/L Total Protein 7.5 (6.5-8.0) g/dL Albumin 4.4 (3.5-5.0) g/dL COVID-19 (NADIYA) Negative (Negative) COVID-19 Clin Com See Note Influenza Type A (DOMINGUEZ) Negative (Negative) Influenza Type B (DOMINGUEZ) Negative (Negative) Influenza A & B Note See Note Independent Interpretation I performed an independent interpretation of an: EKG and Plain X-Ray Interpretation: My interpretation is in agreement with the radiologist's impression of this imaging study. L EXAMINATION: XR CHEST CLINICAL INFORMATION: chest pain COMPARISON: 05/08/2021 TECHNIQUE: 2 views of the chest were obtained. FINDINGS: No significant abnormality is noted involving the heart, lungs, mediastinum, bony thorax or soft tissues. XR/XR chest 2V IMPRESSION: Unremarkable examination. Electronically signed by: Valerio Schroeder MD 02/02/2025 11:22 AM EDT RP Dictated By: Valerio Schroeder MD Signed By: Electronically signed by Valerio Schroeder MD 02/02/25 1122 I independently interpreted this EKG and am in agreement with the below findings: Vent. Rate: 78 BPM Atrial Rate: 78 BPM P-R Int: 156 ms QRS Dur: 80 ms QT Int: 362 ms P-R-T Axes: 33 12 47 degrees QTcB Int: 412 ms Normal sinus rhythm Nonspecific ST and T wave abnormality When compared with ECG of 31-Jan-2020 21:20, Vent. rate has decreased by 53 bpm Non-specific change in ST segment in Inferior leads Nonspecific T wave abnormality, improved in Inferior leads Electronically Signed By: TANVIR LOPEZ MD Dictated By: Tanvir Lopez MD Signed By: Electronically signed by Tanvir Lopez MD 02/02/25 1252 Radiology Impression Discussion of test interpretation with radiology: I have reviewed the radiologist's reading. Discharge Plan Discharge Clinical Impression: RAD (reactive airway disease) Patient Disposition: Home, Self-Care Instructions: How Your Lungs Work (ED) Additional Instructions: Your work up today is reassuring there is no emergent process causing your symptoms. I believe you are having a reaction to the inhalant at work. IF you are prescribed home medications and/or you are taking over the counter medications at home - it is very important you continue to do so as prescribed / directed unless told otherwise. Follow up with your primary care provider. Return to the emergency department immediately if your symptoms worsen or if you develop any numbness, tingling, dizziness, shortness of breath, difficulty breathing, chest pain, blurry vision, loss of vision, nausea, vomiting, abdominal pain, fever, chills, back pain, or any other complaints. Please see the information below about our Patient Portal. If you are not yet enrolled in the [facility] Patient Portal, you will receive an enrollment email invitation following your visit to any [facility] setting. You may also self-enroll in the Patient Portal by visiting our website: [email or web address] The following information is required to access the Patient Portal: - Your [facility] Medical Record Number - Your personal home email address (must match what is in your electronic medical record, Registration staff can assist with this) - Name - Date of Capabilities of the Patient Portal: - Message some providers - View upcoming appointments - Access your health summary, medical history, and visit history - View current conditions and allergies - View procedure and lab results - View your medications, including guidelines, side effects, and precautions - Complete pre-appointment questionnaires requested by your provider - Ready summary reports of your office visits and procedures To access the Patient Portal Mobile K[employer], follow these directions: - Search [employer] in the Krystal Store or [employer] Store - Download the Krystal - Search for [facility] - Enter your login/password Prescriptions: New prednisone 20 mg tablet 40 mg PO DAILY 5 Days Qty: 10 0RF No Action atorvastatin 20 mg tablet 20 mg PO BEDTIME Qty: 90 1RF acetaminophen 500 mg tablet 1,000 mg PO Q6H PRN (Reason: pain) cholecalciferol (vitamin D3) [Vitamin D3] 25 mcg (1,000 unit) capsule 25 mcg PO DAILY Qty: 90 2RF loratadine [Allergy Relief (loratadine)] 10 mg tablet 10 mg PO DAILY PRN (Reason: allergy symptoms) 90 Days Qty: 90 2RF celecoxib 100 mg capsule 100 mg PO DAILY PRN (Reason: pain) Qty: 30 1RF albuterol sulfate [Ventolin HFA] 90 mcg/actuation HFA aerosol inhaler 2 puff inhalation Q4-6H PRN (Reason: shortness of breath or wheezing) Qty: 8.5 0RF Referrals: Shayy Means, PUBLIC HEALTH OFFICER-BC [Primary Care Provider, Internal Medicine] Stand Alone Forms: Work/School Release Interventions: ED Discharge Assessment Last Done: 02/02/25 14:42 Discharge Date/Time: 02/02/25 14:43 Print Language: English
[2025-02-02 11:55] LABS: Alanine Aminotransferase 19 U/L (0-31); Albumin Level 4.4 g/dL (3.5-5.0); Alkaline Phosphatase 74 U/L (39-117); Anion Gap 10 (12-20); Aspartate Amino Transferase 24 U/L (5-31); Blood Urea Nitrogen 8 mg/dL (9-16); Calcium 9.0 mg/dL (8.4-10.2); Carbon Dioxide 26 mmol/L (22-29); Chloride 109 mmol/L (96-108); Creatinine Clr Calc Pharmacy 96.4; Estimated Glomerular Filt Rate > 60; Magnesium 2.1 mg/dL (1.6-2.6); Potassium 3.5 mmol/L (3.3-5.1); Sodium 141 mmol/L (135-145); Total Protein 7.5 g/dL (6.5-8.0)
[2025-02-02 12:00] LABS: COVID-19 Test Negative (Negative); IDNOW Serial# 58CA691E
[2025-02-02 12:04] LABS: Troponin-I High Sensitivity < 2.7 ng/L (<3.5-17.0)
[2025-02-02 12:08] LABS: IDNOW Serial# 6674DD1D; Influenza B2 Negative (Negative)
[2025-02-02 14:42] VITALS: BP 151/74; PULSE 76; RESP 18; TEMP 36.9; O2SAT 100
--- OUTSIDE RECORDS SUMMARY | 2025-02-02 17:35 | XMS_ITS | Clinical Summary ---
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 Name Role Phone Unavailable Primary Care Provider [...] Screening 1980 SDOH Screening 1980 Sigmoidoscopy 1980 Disability Screening 1979 Alcohol/Substance Use Screening 1991 Tobacco Screening 1991 Family Planning (PISQ) 1994 HPV Vaccines (1 - 3-dose series) 1994 Hepatitis C Screening 1997 DTaP/Tdap/Td Vaccines (1 - Tdap) 1998 Hepatitis B Vaccines (1 of 3 - 19+ 3-dose series) 1998 Pap Smear 2000 Cervical Cancer Screening 2009 HPV/Cotest 2009 Mammogram 2019 COVID-19 Vaccine (3 - 2024-2 6 season) 2025 01/20/2021, 12/30/2020 Influenza Vaccine (#1) 2025 Zoster Vaccines (1 of 2) 2029 RSV [...] Years) and At-Risk Patients (6 to 49) Years Aged Out No longer eligible b ased on patient's age to complete this topic RSV under 20 months Aged Out No longe r eligible based on patient's age to complete this topic Rotavirus Vaccines Aged Out No longer eligible based on patient's age to complete this topic Insurance [place] [address] , [address] [place] [address]
--- OUTSIDE RECORDS SUMMARY | 2025-02-02 17:35 | XMS_ITS | Encounter Summary ---
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 documented in this encounter Plan of Treatment Not on file documented as of this encounter Visit Diagnoses Not on filedocumented in this encounter
--- OUTSIDE RECORDS SUMMARY | 2025-02-02 17:35 | XMS_ITS | Clinical Summary ---
Author Organization [facility] [address] [facility] Address [address] [place] [address] Phone Care Team Providers Care Mixing Machine Tender Cork Rod Name Role Phone Shayy Maens Primary Care Provider Allergies Active Allergy Reactions [...] female 10/22/2017 Pelvic pain in female 10/22/2017 Surgical History Surgery Date Site/Laterality Comments TUBAL [...] care for your loved ones. For example, special needs child caregiver or elderly care for an older adult? [...] 6:58 AM EST Sexual Orientation Straight 07/19/2024 6 :58 AM EST Obstetrics History Para Term AB IAB SAB Ectopic Multiple Livin g Live Births 3 3 3 0 0 0 3 3 Date Outcome [...] 74 07/29/2024 11:23 AM EST Temperature 36.1 C (97 F) 07/19/2024 7:20 AM EST Respiratory Rate 14 [...] Care Team (Late st Contact Info) Description 03/30/2025 3:00 PM EST Office Visit Gastroenterology - [place] [address] [facility] [address] [facility] [address] [place] [address] Jessy Monroe, BAN [address] [facility] [address] [place] [address] 09/15/2025 11:20 AM EDT Appointment Radiology Department - [address] [phone] Health Maintenance Due Date Last Done Comments DTaP,Tdap,and Td Vaccines (1 - Tdap) 1998 Hepatitis B Vaccines (1 of 3 - 19+ 3-dose series) 1998 COVID-19 Vaccine (3 - season) 2025 01/20/2021, 12/30/2020 Influenza Vaccine (#1) 2025 Social Influencers of Health Screening 04/12/2025 04/12/2024 Cholesterol Screening (Lipid Panel) 06/14/2025 06/14/2020 Breast Cancer Screening 09/08/2026 09/09/19, 08/27/2023, 08/27/2023, Additional history exists Cervical Cancer Screening: HPV 05/31/2029 05/31/2024, 01/24/2020 Colorectal Cancer Screening: Colonoscopy 07/19/2034 07/19/2024 Depression Screening Completed 05/30/2024 HIV Screening Completed 05/31/2024, 09/26/2022 Hepatitis C [...] 5 Years) and At-Risk Patients (6 to 49 Years) Aged Out No longer eligible based [...] Encounter for screening mammogram for breast cancer COLONOSCOPY Routine 07/19/2024 8:14 AM EST Colon [...] is recommended in 1 year. Mammo Location: [facility], [address] [place] [address], [id number], . -------- FINAL REPORT -------- Dictated By: Penelope Mccall Dictated Date: 09/08/2024 12:10 ET Assigned Physician: Penelope Mccall Reviewed and Electronically Signed By: Penelope Mccall Signed Date: 09/08/2024 12:12 ET Workstation ID: [id number] Transcribed By: Self Edit Transcribed Date: 09/08/2024 12:10 ET Narrative 09/08/2024 12:12 PM EDT STUDY: Bilateral screening mammography with tomosynthesis and CAD TECHNIQUE: Bilateral full-field digital screening mammography is obtained and read in conjunction with computer-aided detection. Tomosynthesis as well as 2-D C view imaging [...] is recommended in 1 year. Mammo Location: [facility], [address] [place] [address], [id number], . -------- FINAL REPORT -------- Dictated By: Penelope Mccall Dictated Date: 09/08/2024 12:10 ET Assigned Physician: Penelope Mccall Reviewed and Electronically Signed By: Penelope Mccall Signed Date: 09/08/2024 12:12 ET Workstation ID: [id number] Transcribed By: Self Edit Transcribed Date: 09/08/2024 12:10 ET Ioana Eaton CNM [facility] BI PROCEDURES Final Result * COLONOSCOPY Anesthesia - MAC; [facility] ENDOSCOPY (07/19/2024 8:14 AM EST) Anatomical Region Laterality Modality Endoscopy 07/19/2024 7:52 AM EST Impressions 07/19/2024 8:14 AM EST - Hemorrhoids found on perianal exam. - One 6 mm polyp in the descending colon, removed with a cold snare. Resected and retrieved. Recommendation: - - Discharge patient to home. - High fiber diet. - Continue present medications. - Await pathology results. - Repeat colonoscopy for surveillance based on pathology results. Narrative 07/19/2024 8:[address] [facility] GI Patient Name: Randi Patton Procedure Date: 07/19/2024 7:52 AM Date of : 1980 Age: 44 Gender: Female Note Status: Finalized Attending MD: Chino Larkin DO, [id number] Procedure Date No Time: 07/19/2024 Procedure: Colonoscopy Indications: Screening for colorectal malignant neoplasm Providers: Chino Larkin DO Referring MD: Phi Davila CNM Medicines: Monitored Anesthesia Care Complications: No immediate complications. Estimated blood loss: Minimal. Estimated Blood Loss: Estimated blood loss was minimal. Procedure: Pre-Anesthesia Assessment: - Prior to the procedure, a History and Physical was performed, and patient medications and allergies were reviewed. The patient is competent. The risks and benefits of the procedure and the sedation options and risks were discussed with the patient. All questions were answered and informed consent was obtained. Patient identification and proposed procedure were verified by the physician, the nurse, the anesthesiologist, the fern gatherer and the civil technician in the pre-procedure area in the endoscopy suite. Mental Status Examination: alert and oriented. Airway Examination: normal oropharyngeal airway and neck mobility. Respiratory Examination: clear to auscultation. CV Examination: normal. Prophylactic Antibiotics: The patient does not require prophylactic antibiotics. Prior Anticoagulants: The patient has taken no anticoagulant or antiplatelet agents. ASA Grade Assessment: II - A patient with severe systemic disease. After reviewing the risks and benefits, the patient was deemed in satisfactory condition to undergo the procedure. The anesthesia plan was to use monitored anesthesia care (MAC). Immediately prior to administration of medications, the patient was re-assessed for adequacy to receive sedatives. The heart rate, respiratory rate, oxygen saturations, blood pressure, adequacy of pulmonary ventilation, and response to care were monitored throughout the procedure. The physical status of the patient was re-assessed after the procedure. After I obtained informed consent, the scope was passed under direct vision. Throughout the procedure, the patient's blood pressure, pulse, and oxygen saturations were monitored continuously. The Olympus Pediatric Colonoscope was introduced through the anus and advanced to the cecum, identified by appendiceal orifice and ileocecal valve. The colonoscopy was performed without difficulty. The patient tolerated the procedure well. The quality of the bowel preparation was good. Findings: Hemorrhoids were found on perianal exam. A 6 mm polyp was found in the descending colon. The polyp was sessile. The polyp was removed with a cold snare. Resection and retrieval were complete. Verification of patient identification for the specimen was done. Estimated blood loss was minimal. Procedure Code(s): --- Professional --- 98499, Colonoscopy, flexible; with removal of tumor(s), polyp(s), or other lesion(s) by snare technique Diagnosis Code(s): --- Professional --- Z12.11, Encounter for screening for malignant neoplasm of colon K64.9, Unspecified hemorrhoids D12.4, Benign neoplasm of descending colon CPT copyright 2020 [employer]. All rights reserved. The codes documented in this report are preliminary and upon computer laboratory technician review may be revised to meet current compliance requirements. CHINO Larkin DO 07/19/2024 8:14:46 AM This report has been signed electronically.Chino Larkin DO Number of Addenda: 0 Note Initiated On: 07/19/2024 7:52 AM Scope Withdrawal Time: 0 hours 8 minutes 18 seconds Scope In: 8:01:10 AM Scope Out: 8:13:00 AM Endoscopy Department at [facility] - [address] [place] [phone] Procedure Note Chino Larkin DO - 07/19/[address] [facility] GI Patient Name: Randi Patton Procedure Date: 07/19/2024 7:52 AM Date of : 1980 Age: 44 Gender: Female Note Status: Finalized Attending MD: Chino Larkin DO, [id number] Procedure Date No Time: 07/19/2024 Procedure: Colonoscopy [...] the physician, the nurse, the anesthesiologist, the fern gatherer and thetechnician in the pre-procedure area in [...] disease. After reviewing the risks and benefits,the patient was deemed in satisfactory condition to [...] loss wasminimal. Procedure Code(s): --- Professional --- 31254, Colonoscopy, flexible; with removal of tumor(s), polyp(s), or other lesion(s) by snare technique Diagnosis Code(s): --- Professional --- Z12.11, Encounter for screening for malignantneoplasm of colon K64.9, Unspecified hemorrhoids D12.4, Benign neoplasm of descending colon CPT copyright 2020 [employer]. All rights reserved. The codes documented in this report are preliminary and upon computer laboratory technician reviewmay be revised to meet current compliance requirements. CHINO Larkin DO 07/19/2024 8:14:46 AM This report has been signed electronically.Chino Larkin DO Number of Addenda: 0 Note Initiated On: 07/19/2024 7:52 AM Scope Withdrawal Time: 0 hours 8 minutes 18 seconds Scope In: 8:01:10 AM Scope Out: 8:13:00 AM Endoscopy Department at [facility] - [address] [place] [phone] IMPRESSION: - Hemorrhoids found on perianal exam. - One 6 mm polyp in the descending colon, removedwith a cold snare. Resected and retrieved. Recommendation: - - Discharge patient to home. - High fiber diet. - Continue present medications. - Await pathology results. - Repeat colonoscopy for surveillance based on pathology results. us Fabrizio Agee MD GI~PROCEDURE ORDERABLES Final R esult * Hepatitis C antibody (05/31/2024 4:14 PM EST) Hepatitis C Antibody Negative Negative LAB CHEMISTRY METHOD 05/31/2024 7:13 PM EST [facility] Blood Venous blood specimen / Unknown Venipuncture / Unknown 05/31/2024 4:14 PM EST 05/31/2024 4:14 PM EST [facility] LAB BLOOD ORDERABLES Final Re sult Performing Organization Address [facility] Co de Phone Number [facility] [address] [place] [address], * HIV 1,2 antibody, p24 antigen with reflex to differentiation (05/31/2024 4:14 PM EST) HIV Combo AB/AG Negative Negative LAB CHEMISTRY METHOD 05/31/2024 7:13 PM EST [facility] Blood Venous blood specimen / Unknown Venipuncture / Unknown 05/31/2024 4:14 PM EST 05/31/2024 4:14 PM EST Narrative [facility] - 05/31/2024 7:13 PM EST This assay is a 4th generation assay allowing for earlier detection of HIV infection by detecting the presence of the HIV-1 p24 antigen as well as the traditional antibodies to HIV type 1 (including group O) and type 2. Use of a 4th generation assay is the current CDC recommendation for HIV screening. [facility] BLOOD ORDERABLES Final Re sult Performing Organization Address [facility] de Phone Number [facility] [address] [place] [address], [place] [phone] * HPV with reflex genotype (05/31/2024 3:39 PM EST) HPV Negative Negative LAB MICROBIOLOGY METHOD 2024 2:26 PM EST [facility] Brushing Cervix uteri structure / Unknown 05/31/2024 3:39 PM EST 06/01/2024 9:44 AM EST [facility] MOLECULAR DIAGNOSTICS ORD ERABLES Final Result [facility] [address] [place] [address], * Lipid panel (06/14/2020) LDL/HDL Ratio 0 Comment:no interpretation, a bstracted Triglycerides 0 mg/dL Comment:no interpretation, a bstracted Cholesterol 0 mg/dL Comment:no interpretation, a bstracted HDL 0 mg/dL Comment:no interpretation, a bstracted LDL Cholesterol 0 mg/dL Comment:no interpretation, a bstracted Blood Venous blood specimen / Unknown [facility] Provider LAB BLOOD ORDERABLES Nuria l Result from Last 3 Months or Most Recently Relevant to Health Maintenance Insurance [facility] Care Teams Mixing Machine Tender Cork Rod Relationship Specialty Start Date End Date Shayy Means FNP [address] [place] [address] [address] [place] [phone] PCP - General Nurse Practitioner 07/19/24
== END 2025-02-02 14:43 | disposition home or self-care (01) ==
PROVIDERS: Physician Assistant Medical; Emergency Provider Emergency Medicine Emergency Medical Services; PCP Nurse Practitioner Family
DX: R07.9 Chest pain, unspecified (principal); J45.909 Unspecified asthma, uncomplicated; E78.5 Hyperlipidemia, unspecified; Z57.5 Occupational exposure to toxic agents in other industries; Z03.818 Encounter for observation for suspected exposure to other biological agents ruled out
CPT/HCPCS: 36415; 71046; 80053; 83735; 84484; 85025; 87502; 87635; 93005; 99283

== ENCOUNTER → 2025-02-02 11:05 | Outpatient (BNV) | payer OTHER, SELFPAY | PROVIDERS: PCP Nurse Practitioner Family; Visit Provider Internal Medicine Cardiovascular Disease | DX: R94.31 Abnormal electrocardiogram [ECG] [EKG] (principal); R07.89 Other chest pain | CPT/HCPCS: 93010 ==

== ENCOUNTER → 2025-02-02 11:11 | Outpatient (BNV) | payer OTHER, SELFPAY | PROVIDERS: PCP Nurse Practitioner Family; Visit Provider Radiology Diagnostic Radiology | DX: R07.89 Other chest pain (principal) | CPT/HCPCS: 71046 ==

== ENCOUNTER 2025-04-23 09:14 | Outpatient (REF) | payer OTHER, SELFPAY ==
--- OUTSIDE RECORDS SUMMARY | 2025-04-23 09:19 | XMS_ITS | Encounter Summary ---
Author Organization [facility] Address [address] [place] [address] [address] [place] [address] Care Team Providers Care Mounter Smoking Pipe Name Role Phone Unavailable Primary Care Provider Unavailabl e Reason for Visit * Reason Onset Date Comments New Patient 02/19/2023 Encounter Details Date Type Department Care Team ([facility] st Contact Info) Description 02/19/2023 Telephone [facility] [address] [place], [place] [phone] Destin Berry MD [address] [place], [place] [phone] New Patient Social History Tobacco Use Types [...] left voicemail to give a call at [phone]. documented in this encounter Plan of Treatment Not on file documented as of this encounter Visit Diagnoses Not on filedocumented in this encounter
--- OUTSIDE RECORDS SUMMARY | 2025-04-23 09:19 | XMS_ITS | Clinical Summary ---
Author Organization [employer] Address [address] [place] [address] [address] [place] [address] Care Team Providers Care Professional Services Consultant Name Role Phone Unavailable Primary Care Provider [...] patient's age to complete this topic Insurance [place] [address] , [address] [place] [address]
--- OUTSIDE RECORDS SUMMARY | 2025-04-23 09:19 | XMS_ITS | Clinical Summary ---
Author Organization [facility] [address] [facility] Address [address] [facility] [place] [address] Phone Care Team Providers Care Electrician Elevator Maintenance Name Role Phone Shayy Means Primary Care Provider Allergies Active Allergy Reactions Criticality Noted Date Comments Amoxicillin Rash 07/09/2024 Azithromycin Diarrhea 07/09/2024 Other 03/08/2020 Medications loratadine 10 mg capsule Take by mouth. Active ibuprofen (ADVIL,MOTRIN) 800 mg tablet TAKE 1 TAB BY MOUTH EVERY 8 HOURS NEEDED FOR PAIN 06/05/19 19 Active acetaminophen (TYLENOL) 325 mg tablet Take 2 Tabs by mouth every 4 hours as needed for Pain for up to 10 days. 11/01/19 18 Active cephalexin (KEFLEX) 500 mg capsule TOME 1 C PSULA POR V A ORAL DOS VECES AL D A POR 7 D 06/30/19 25 Active albuterol HFA (PROAIR HFA ; PROVENTIL HFA ; VENTOLIN HFA) 90 mcg/actuation inhaler INHALE 2 PUFFS INTO LUNGS EVERY 4 TO 6 HOURS NEEDED FOR SHORTNESS OF BREATH OR WHEEZING 08/27/19 25 Active fluconazole (DIFLUCAN) 150 mg tablet 06/25/19 23 025 Discontinued norethindrone- ethinyl estradiol (MICROGESTIN 06/14) 1-20 mg-mcg per tablet Take 1 Tablet by mouth daily for 84 days. Then do not take a pill for one week 09/27/19 23 025 Discontinued GaviLyte-C 240-22.72-6.72 -5.84 gram solution TAKE 4,000 ML BY MOUTH 1 TIME FOR 1 DOSE. DRINK 8 OZ EVERY 10-15 MINUTES UNTIL SOLUTION IS GONE 06/11/19 25 025 Discontinued Active Problems Problem Noted Date Diagnosed Date Allergic rhinitis 11/13/2022 Cutaneous candidiasis 06/25/2022 Overview (03/10/2024): Last Assessment & Plan: Treated with fluconazole which will also treat yeast vaginitis if present, although not noted under the microscope. Dysmenorrhea 10/22/2017 Dyspareunia in female 10/22/2017 Pelvic pain in female 10/22/2017 Encounters Date Type Department Care Team Description 03/30/2025 3:00 PM EST Office Visit Gastroenterology - [address] [place] [address] [phone] Jessy Monroe NP Epigastric abdominal pain (Primary Dx); History of colon polyps 03/30/2025 Telephone Gastroenterology - [address] [facility] [address] [place] [address] Jessy Monroe NP from Last 3 Months Surgical History Surgery [...] ed Within the last 3 months, monica lazaro many times did you visit the emergency [...] for your loved ones. For example, child development instructor or elderly care for an older adult? [...] Date Recorded What is your living situation? Unrecognized valu e 04/12/2024 Interpersonal Safety Answer Date Record ed Physical Abuse Unrecognized value 07/19/2024 Verbal Abuse Unrecognized value 07/19/2024 Comments No Sex and Gender Information [...] Sign Reading Time Taken Comments Blood Pressure 124/62 03/30/2025 3:09 PM EST Pulse 95 03/30/2025 3:09 PM EST Temperature 36.1 C (97 F) 07/19/2024 7:20 AM EST Respiratory Rate 14 07/19/2024 8:35 AM EST Oxygen Saturation 97% 03/30/2025 3:09 PM EST Inhaled Oxygen Concentration - - Weight 78.5 kg (173 lb) 03/30/2025 3:09 PM EST Height 162.6 cm (5' 4 ) 03/30/2025 3:09 PM EST Body Mass Index 29.7 03/30/2025 3:09 PM EST Plan of Treatment Upcoming Encounters Date Type Department Care Team (Late st Contact Info) Description 09/15/2025 11:20 AM EDT Appointment Radiology Department [address] [phone] Health Maintenance Due Date Last Done Comments Hepatitis B Vaccines (1 of 3 - 19+ 3-dose series) 1998 HPV Vaccines (1 - 3-dose SCDM series) 2006 COVID-19 Vaccine ( season) 2025 01/20/2021, 12/30/2020 Influenza Vaccine (#1) 2025 Social Influencers of Health Screening 04/12/2025 04/12/2024 Cholesterol Screening (Lipid Panel) 06/14/2025 06/14/2020 Breast Cancer Screening 09/08/2026 09/09/19 25, 08/27/2023, 08/27/2023, Additional history exists Cervical Cancer Screening: HPV 05/31/2029 05/31/2024, 01/24/2020 Colorectal Cancer Screening: Colonoscopy 07/19/2034 07/19/2024 DTaP,Tdap,and Td Vaccines (2 - Td or Tdap) 10/26/2034 10/26/2024 RSV Immunization Adult Patients (1 - 1-dose 75+ series) 2054 Depression Screening Completed 05/30/2024 HIV Screening Completed [...] is recommended in 1 year. Mammo Location: [place] [facility], [address] [place] [address], [address], . -------- FINAL REPORT -------- Dictated By: Penelope Mccall Dictated Date: 09/08/2024 12:10 ET Assigned Physician: Penelope Mccall Reviewed and Electronically Signed By: Penelope Mccall Signed Date: 09/08/2024 12:12 ET Workstation ID: [id number] Transcribed By: Self Edit Transcribed Date: 09/08/2024 [...] is recommended in 1 year. Mammo Location: [place] [facility], [address] [place] [address], [address], . -------- FINAL REPORT -------- Dictated By: Penelope Mccall Dictated Date: 09/08/2024 12:10 ET Assigned Physician: Penelope Mccall Reviewed and Electronically Signed By: Penelope Mccall Signed Date: 09/08/2024 12:12 ET Workstation ID: [id number] Transcribed By: Self Edit Transcribed Date: 09/08/2024 12:10 ET Ioana Eaton CNM IMG BI PROCEDURES Final Result * COLONOSCOPY Anesthesia - MAC; [facility] ENDOSCOPY (07/19/2024 8:14 AM EST) Anatomical Region [...] pathology results. Narrative 07/19/2024 8:14 AM EST [facility] GI Patient Name: Marcel Patton Procedure Date: 07/19/2024 7:52 AM Date of : 1980 Age: 44 Gender: Female Note Status: Finalized Attending MD: Chino Larkin DO, [id number] Procedure Date No Time: 07/19/2024 Procedure: Colonoscopy [...] the physician, the nurse, the anesthesiologist, the claims adjudicator and the wetlands technician in the pre-procedure area in the [...] was minimal. Procedure Code(s): --- Professional --- 99314, Colonoscopy, flexible; with removal of tumor(s), polyp(s), or other lesion(s) by snare technique Diagnosis Code(s): --- Professional --- Z12.11, Encounter for screening for malignant neoplasm of colon K64.9, Unspecified hemorrhoids D12.4, Benign neoplasm of descending colon CPT copyright 2020 [employer]. All rights reserved. The codes documented in this report are preliminary and upon manager equipment review may be revised to meet current compliance requirements. CHINO Larkin DO 07/19/2024 8:14:46 AM This report has been signed electronically.Chino Larkin DO Number of Addenda: 0 Note Initiated On: 07/19/2024 7:52 AM Scope Withdrawal Time: 0 hours 8 minutes 18 seconds Scope In: 8:01:10 AM Scope Out: 8:13:00 AM Endoscopy Department at [address] [phone] Procedure Note Chino Larkin DO - 07/19/2024 [facility] GI Patient Name: Marcel Patton Procedure Date: 07/19/2024 7:52 AM Date of : 1980 Age: 44 Gender: Female Note Status: Finalized Attending MD: Chino Larkin DO, [id number] Procedure Date No Time: 07/19/2024 Procedure: Colonoscopy [...] the physician, the nurse, the anesthesiologist, the claims adjudicator and thetechnician in the pre-procedure area in [...] loss wasminimal. Procedure Code(s): --- Professional --- 91363, Colonoscopy, flexible; with removal of tumor(s), polyp(s), or other lesion(s) by snare technique Diagnosis Code(s): --- Professional --- Z12.11, Encounter for screening for malignantneoplasm of colon K64.9, Unspecified hemorrhoids D12.4, Benign neoplasm of descending colon CPT copyright 2020 [employer]. All rights reserved. The codes documented in this report are preliminary and upon manager equipment reviewmay be revised to meet current compliance requirements. CHINO Larkin DO 07/19/2024 8:14:46 AM This report has been signed electronically.Chino Larkin DO Number of Addenda: 0 Note Initiated On: 07/19/2024 7:52 AM Scope Withdrawal Time: 0 hours 8 minutes 18 seconds Scope In: 8:01:10 AM Scope Out: 8:13:00 AM Endoscopy Department at [facility] - [address] [place] [phone] IMPRESSION: - Hemorrhoids found on perianal exam. [...] LAB CHEMISTRY METHOD 05/31/2024 7:13 PM EST [facility] Blood Venous blood specimen / Unknown Venipuncture / Unknown 05/31/2024 4:14 PM EST 05/31/2024 4:14 PM EST Phi Davila CN LAB BLOOD ORDERABLES Final Re sult [facility] [address] [place] [address], * HIV 1,2 antibody, p24 antigen with reflex to differentiation (05/31/2024 4:14 PM EST) HIV Combo AB/AG Negative Negative LAB CHEMISTRY METHOD 05/31/2024 7:13 PM EST [facility] Blood Venous blood specimen / Unknown Venipuncture / Unknown 05/31/2024 4:14 PM EST 05/31/2024 4:14 PM EST Narrative [facility] - 05/31/2024 7:13 PM EST This assay is a 4th generation assay allowing for earlier detection of HIV infection by detecting the presence of the HIV-1 p24 antigen as well as the traditional antibodies to HIV type 1 (including group O) and type 2. Use of a 4th generation assay is the current CDC recommendation for HIV screening. Phi PEREZ LAB BLOOD ORDERABLES Final Re sult Performing Organization Address [facility]/ZIP Co de Phone Number [facility] [address] [place] [address], * HPV with reflex genotype (05/31/2024 3:39 PM EST) Pathologist [facility] HPV Negative Negative LAB MICROBIOLOGY METHOD 2024 2:26 PM EST [facility] Brushing Cervix uteri structure / Unknown 05/31/2024 3:39 PM EST 06/01/2024 9:44 AM EST Phi [facility] MOLECULAR DIAGNOSTICS ORD ERABLES Final Result Performing Organization Address [facility] Co de Phone Number [facility] [address] [place] [address], * Lipid panel (06/14/2020) [facility] LDL/HDL Ratio 0 Comment:no interpretation, a bstracted Triglycerides 0 mg/dL Comment:no interpretation, a bstracted Cholesterol 0 mg/dL Comment:no interpretation, a bstracted HDL 0 mg/dL Comment:no interpretation, a bstracted LDL Cholesterol 0 mg/dL Comment:no interpretation, a bstracted Blood Venous blood specimen / Unknown Historical Provider LAB BLOOD ORDERABLES Nuria l Result from Last 3 Months or Most Recently Relevant to Health [place] [id number] [facility] Care Teams Electrician Elevator Maintenance Relationship Specialty Start Date End Date Shayy Means FNP [address] [place] [address] PCP - General Nurse Practitioner 03/30/25
--- OUTSIDE RECORDS SUMMARY | 2025-04-23 09:19 | XMS_ITS | Data Portability ---
Author Organization [facility] [address] Address [address] [place] [address] Assessment No assessment recorded. Plan of Treatment Reminders Order Date Submit Date Provider Last Modified By Organization Details Last Modified Time Details Appointments None recorded. Lab None recorded. Referral None recorded. Procedures None recorded. Surgeries None recorded. Imaging None recorded. Medication Orders cefdinir 300 mg capsule 2022 023 [facility][id number], [address] [place], [address], 14:59:56 Patient TargetsNo targets recorded. Patient Instructions Encounter Date Encounter Id Patient Instructions Last Modified By Organization Details Last Modified Time 11/13/2022 [id number] earache: care instructions [email or web address] Not available 11/13/2022 14:59:54 Reason for Referral None Reported. Problems Name Problem SNOMED Code Status Onset Date Resolution Date Notes Provider Name and Address Organization Details Recorded Time Allergic rhinitis 61457341 Active 023 LETTY edmond PA - [facility] 14:35:29 Problem Notes None recorded. Procedures Surgical History Date Name Laterality Status Provider Name and Address Organization Details Recorded Time ligation of fallopian tube completed LETTYJared ORLANDOO PA - [facility] 11/13/2022 14:36:05 Imaging Results None recorded. Procedure Notes None recorded. Medical Equipment None Reported. Allergies Allergen ID Allergen Name Allergen Category Reaction Reaction Severity Criticality Documentation Date Start Date Code Code System Note Provider Name and Address Organization Details Recorded Time 466330 amoxicill in medicatio n rash Not available Not available 11/13/2022 723 RxNorm LETTY edmond PA - [facility] 3 14:33:59 432688 azithromy sj medicatio n diarrhea Not available Not available 11/13/2022 69011 RxNorm had blood in stool LETTY edmond PA - [facility] 3 14:34:27 Medications Name Sig Start Date Stop [...] numeric rating [Score] - Reported Oxygen saturation Heart rate Respiratory rate Body temperature Systolic And Diastolic Provider Name and Address Organization Details Last Updated DateTime 3 162.56 cm 29.2 kg/m2 23890.7 g 8 100 % 88 /min 18 /min 98 [degF] 112/77 mm[Hg] LETTY WISE PA - [facility] 3 14:38:05 Social History Question Answer Notes LastModified by [facility] Details LastModified Time Tobacco Smoking Status Never Smoker LETTY edmond PA - [facility] 11/13/2022 14:35:42 Have You Recently Traveled Abroad? No Information not available 11/13/2022 Sex: Unknown Functional Status Question Answer Note LastModified by [facility] Details LastModified Time Do you use any illicit or recreational drugs? No Information not available 11/13/2022 Do you or have you ever used any other forms of tobacco or nicotine? No Information not available 11/13/2022 What is your level of alcohol consumption? None Information not available 11/13/2022 Mental Status None recorded. Family History Relationship [...] Diagnosis SNOMED-CT Code Diagnosis ICD10 Code Diagnosis IMO Codes Diagnosis Note [id number] [address] [place] [address] 12/07/2019 11:06:48 12/07/2019 12:02:41 [id number] [address] [place] [address] 10/02/2020 18:09:15 10/02/2020 18:51:47 [id number] [address] [place] [address] 01/27/2019 17:41:45 01/27/2019 18:22:06 [id number] [address] [place] [address] 03/02/2019 10:44:24 03/02/2019 12:15:18 [id number] [address] [place] [address] 08/15/2020 18:35:21 08/15/2020 19:25:04 [id number] [address] [place] [address] 08/27/2020 14:29:56 08/27/2020 15:51:03 [id number] [address] [place] [phone] 03/10/2019 15:13:55 03/10/2019 15:40:19 [id number] Alma López MD [address] [place] [address] 11/13/2022 13:47:17 11/13/2022 15:02:19 Acute left otitis media [id number] H66.92 Please follow up with PCP or Urgent Care in 3-5 days if no improvemen t or if any new symptoms occur that are concerning . Health Concerns Section Related Observation LastModified by Organization Detai ls LastModified Time None Recorded Concern Status LastModified by Organization Details LastModified Time None Recorded Advance Directives Directive None Recorded Payers Insurance Date Sequence Insurance Name Policy Number Policy Davies Covered Member ID Davies Member ID Guarantor Name 11/13/[address] [place] [address] [id number] Marcel Espinal [id number] Marcel Patton Notes Date Note Type Note Provider Name and Address Organization Details Recorded Time 11/13/2022 text/html Ear Pain Brief HPIReported by PatientHPIFor location, patient reportspain radiates to jawbut reportsleft. For context, patient reportsrecent uribut reportsno recent trauma,no recent ear infection,no recent swimming,no immunocompromise,no dental problems,no recent airplane travel, andseasonal allergic rhinitis. For associated symptoms, patient reportsnasal congestion,sense of fullness/pressure, andjaw pain. For onset/timing, patient reportsnew onsetandstarted 2days ago. For quality, patient reportsno itching,no discharge from the ears, andno burning. For severity, patient reportsno fever,able to perform daily activities, andno interference with sleep. Alma López MD [address] [facility] [place], [address], [place] - [facility] 11/13/2022 15:32:23 OBGyn Episode No OBEpisode recorded.
[2025-04-23 11:01] LABS: Alanine Aminotransferase 25 U/L (0-31); Albumin Level 4.3 g/dL (3.5-5.0); Alkaline Phosphatase 74 U/L (39-117); Anion Gap 11 (12-20); Aspartate Amino Transferase 30 U/L (5-31); Blood Urea Nitrogen 11 mg/dL (9-16); Calcium 9.1 mg/dL (8.4-10.2); Carbon Dioxide 23 mmol/L (22-29); Chloride 111 mmol/L (96-108); Cholesterol 173 mg/dL (<200); Estimated Glomerular Filt Rate > 60; HDL Cholesterol 33 mg/dL (>40); Potassium 3.7 mmol/L (3.3-5.1); Sodium 141 mmol/L (135-145); Total Protein 7.2 g/dL (6.5-8.0); Triglycerides 161 mg/dL (<150)
== END 2025-04-23 09:15 | disposition home or self-care (01) ==
LOC: HO.LAB 09:14
PROVIDERS: PCP Nurse Practitioner Family; Visit Provider Nurse Practitioner Family
DX: E78.5 Hyperlipidemia, unspecified (principal)
CPT/HCPCS: 36415; 80053; 80061

== ENCOUNTER 2025-05-05 13:41 | Outpatient (AMB) | payer OTHER, SELFPAY ==
--- NOTE | 2025-05-05 13:54 | A.OFFPC_ITS ---
Vital Signs 05/05/25 13:57 Height 5 ft 4 in Weight 169 lb 2 oz BMI 29.0 BP 120/76 Blood Pressure Location Lt brachial Position Sitting Respiration 16 Pulse 85 Pulse Source Pulse Oximeter Temp 98 F Temp Source Temporal Artery Scan Pulse Oximetry (%) 98 Oxygen Delivery Method Room Air Intake Visit Reasons: review cholesterol,labs Intake Note: Marcel presents in the office today for a review of her labs. Road Tester Required: No Is last menstrual period known: Yes Last menstrual period: 04/11/25 Post menopausal: No Patient : No Allergies amoxicillin (From Augmentin) Allergy (Mild, Verified 05/05/25 14:14) rash clavulanic acid (From Augmentin) Allergy (Mild, Verified 05/05/25 14:14) rash SEASONAL ALLERGIES Allergy (Mild, Uncoded 05/05/25 13:56) RUNNY NOSE Medication List - Last Reconciled 05/05/25 by Shayy Means, TEXTILE CONVERTER- acetaminophen 1,000 mg PO Q6H PRN albuterol sulfate 90 mcg/actuation (Ventolin HFA) 2 puffs inhalation Q4-6H PRN atorvastatin 20 mg PO BEDTIME celecoxib 100 mg PO DAILY PRN cholecalciferol (vitamin D3) (Vitamin D3) 25 mcg PO DAILY loratadine (Allergy Relief (loratadine)) 10 mg PO DAILY PRN 90 days Tobacco use date assessed: 05/05/25 Dental Screening Dental Screen Date: 05/05/25 Did you have a dental visit in the last 12 months?: No Did you have a dental problem in the last 6 months where you did not have access to dental care?: No Was dental information given to patient?: Patient declined HPI HPI Comments History of Present Illness Details 44-year-old Burkinan-speaking female with vitamin-D deficiency, obesity, endometriosis, hydronephrosis, chronic abdominal pain, GERD, chronic constipation, benign Stable 7 mm low-attenuation lesion in the anterior segment of the right lobe of the liver, nabothian cysts, H Pylori, Reactive airway dz, environmental allergies status post tubal ligation laparoscopy Health maintenance Pap smear: Patient follows with [email or web address] Mammogram 09/2024 WNL Debbie Tdap 2024 Flu 05/05/2025 Colon 06/2024 Debbie sessile polyp Specialists Urology Gastroenterology Derm [facility] Derm, L elbow, L inner thigh appt 11/09/24 [facility] [employer] History of Present Illness The patient is a 44 year old female presenting for a routine follow-up for hy perlipidemia. Hyperlipidemia: - The patient was started on atorvastati n 20 mg daily at her last visit for hyperlipidemia but she has not been taking it. - She attributes her high cholesterol to her ctcxio-ws-fch's cooking, which involves a lot of oil. - She reports significant dietary change s, including eating less oily food, stopping eating most pork, and adding avocado. - Recent lab results show significant im provement, with triglycerides decreasing from 493 to 161, total cholesterol remaining stable, LDL dropping to 108, and HDL increasing from 23 to 33. Vitamin D Deficiency: - The patient was previously started on a vitamin D supplement. - She ran out of her prescription and roque s only recently resumed taking it after purchasing it over the counter. - She reports that her insurance did not cover the prescription, and she currently buys it at [facility] for about $15 for a 30-day supply. Dysmenorrhea: - The patient was previously started on Celebrex as needed for abdominal c ramping related to her menses. - She reports that she had no pain with her periods in February and March and has not needed to take the medication, but keeps it just in case. Allergic Rhinitis: - The patient believes her allergies may be contributing to some of her symptoms. - She takes loratadine for allergies. - A prescription for fluticasone (Flonas e) nasal spray was previously sent, but it was not covered by insurance. - She briefly tried her daughter's fluti casone spray and found it somewhat helpful. Asthma with Dyspnea on Exertion: - The patient reports feeling out of ted ath when going up and down stairs. - She denies having chest pain with the dyspnea. - About two months ago, she went to the emergency room and was prescribed prednisone, after which she felt better. - She acknowledges needing to increase h er physical activity but finds it difficult to maintain a routine. - She has an albuterol inhaler for as-ne eded use, which was also prescribed after her ER visit. Health Maintenance: - The patient had a mammogram in September and a colonoscopy in June. - The patient agrees to receive an influ brii vaccine during the visit. Past Medical History - Hyperlipidemia, previously prescribed atorvastatin - Dysmenorrhea, previously prescribed Ce lebrex - Vitamin D deficiency - Allergic rhinitis - Asthma - Hospitalization: Emergency room visit approximately two months ago, treated with prednisone. - Procedures: Mammogram in September, Colonosc opy in June. Review of Systems - Respiratory: Reports dyspnea on exerti on, specifically when climbing stairs. Denies chest pain. - Gastrointestinal: Reports chronic, mil d lower abdominal tenderness. Denies pain in the upper abdomen. - General: Reports feeling better overal l. Physical Exam General: Well developed, well nourished, in no acute distress. Appears stated age. Head: Normocephalic, atraumatic. Eyes: Pupils are equal, round and reactive to light and accommodation. Conjunctivae are clear. Lungs: Clear to auscultation bilaterally. No rales, rhonchi or wheeze noted. Good air flow in all stroud. Heart: Regular rate and rhythm. No murmurs, click, rubs or gallops are noted. Abdomen: Bowel sounds present in all quadrants. The abdomen is soft, nontender, with no masses or organomegaly noted. Reports chronic mild pain in the lower abdomen, but no acute tenderness. Musculoskeletal: Joints are nontender, without swelling, redness, or effusions. Pulses: Peripheral pulses are equal and palpable bilaterally. Extremities: No clubbing, cyanosis nor edema is noted. Psych: Mood and affect appropriate. Results - Lipid Panel: - Triglycerides: 161 (previously 493) - Total Cholesterol: 173 (previously 171 ) - LDL: 108 (previously unable to be calc ulated) - HDL: 33 (previously 23) - Mammogram (September): Results reviewed. - Colonoscopy (June): Results review ed. Medical Decision Making The patient is a 44-year-old female here for a follow-up on several chronic conditions. Of note, her lipid panel has shown dramatic improvement without her initiating the prescribed atorvastatin, which she attributes to significant dietary changes. Given this profound improvement, the decision was made to hold off on starting the statin and continue with lifestyle modifications. She reports dyspnea on exertion with stairs, which is likely related to her history of asthma and deconditioning. Encouraged her to increase activity and to trial her albuterol inhaler prior to exertion to see if it helps. Her allergic rhinitis symptoms may also be a contributing factor, so a prescription for fluticasone nasal spray was re-sent. Regarding her vitamin D deficiency, she has been purchasing the supplement [id number] due to insurance coverage issues. The prescription was refilled, but she was advised against a higher dose that insurance might cover, as 1000 units is the appropriate dose for her. Her dysmenorrhea has resolved spontaneously for the past two months. She will receive an influenza vaccine today. She will follow up in October with labs done one week prior to the visit. Plan 1. Hyperlipidemia - Given the significant improvement in t he patient's lipid panel with dietary changes alone, the decision was made to stop the order for atorvastatin. - The patient is advised to continue her current diet and to incorporate more exercise. - Her lipids will be re-checked prior to her next physical exam in October. 2. Vitamin D Deficiency - The prescription for vitamin D 1000 un its was refilled. - If the prescription is not covered by insurance, the patient was advised on cost-effective [id number] options such as purchasing from wholesale stores like [employer], or from [employer]. - Advised against a higher dose (e.g., 2 000 units) even if covered by insurance, as it would be too much for her. 3. Dysmenorrhea - The patient reports resolution of her menstrual pain for the last two months without medication. - She will continue to hold the Celebrex and use it only as needed. 4. Allergic Rhinitis And Asthma - Advised the patient to try using her a lbuterol inhaler before activities that cause shortness of breath, such as climbing stairs, to see if it provides relief. - A prescription for fluticasone (Flonas e) nasal spray was sent to her pharmacy. 5. Health Maintenance - An influenza vaccine will be administe red today. - The patient is scheduled to return in October for her physical exam. - She will have labs drawn one week befo re her next appointment. Patient Instructions - Do not start the atorvastatin (cholest monika medicine). You should keep it for now but do not take it. - Continue with your current diet. - Try to add some exercise to your routi ne, as your cholesterol numbers improved greatly with just diet changes. - For your shortness of breath when clim bay stairs, try using your albuterol inhaler beforehand to see if it helps. - A prescription for Flonase nasal spray was sent to your pharmacy. Please use it for your allergies. - Continue taking your Vitamin D supplem ent. We have refilled the prescription, but if your insurance does not cover it, you can buy it over the counter. Do not take more than 1,000 units per day. - You will receive a flu shot today befo re you leave. - Schedule a follow-up appointment for y our physical in October. You will need to get blood work done one week before that appointment. Consent The patient verbally consented to receive the influenza vaccine during the visit. Patient was informed and verbally consented to the use of an ambient scribe for clinic note documentation during this visit. Total time spent caring for the patient today was 30 minutes. This includes time spent before the visit reviewing the chart, time spent during the visit, and ti me spent after the visit on documentation, reviewing laboratory results, diagnostic imaging, medications, performing a medically necessary evaluation, counseling on diagnoses, care coordination, ordering appropriate tests, ordering appropriate medications, review of tests performed by other providers, reporting test results with the patient, communication with other healthcare providers. [facility] Medical History H. 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 Current occupational exposures/hazards: No Cognitive needs: No Hearing needs: No Vision needs: No (glasses) Female Reproductive History Menstrual Date of last menstrual period: 04/11/25 Questionnaire Thrive Questionnaire Date Thrive assessed: 10/26/24 I am a: Patient What is your living situation today?: I have a steady place to live Within the past 12 months, did the food you bought not last and you didn't have the money to get more?: I choose not to answer this question Within the past 12 months, did you worry whether your food would run out before you got money to buy more?: I choose not to answer this question Do you have trouble paying for medicines?: I choose not to answer this question Do you have trouble getting transportation to medical appointments?: No Do you have trouble paying your heating and electricity bill?: I choose not to answer this question Do you have trouble taking care of your child, family member or friend?: No Do you have trouble with day-to-day activities such as bathing, preparing meals, shopping, managing finances, etc.?: No Are you currently unemployed and looking for a job?: No Are you interested in more education?: No Please select the resources that you would like help with: None Currently or been in a relationship where the following occur: I choose not to answer THRIVE Score: 0 OZZIE-7 AMB Questionnaire OZZIE-7 Date OZZIE - 7 assessed: 10/26/24 Source: Developed by Drs. Dayne Arauz, Toshia Meehan, Chintan Paige and colleagues, with an educational yeni from [employer]. Physical exam (Primary Care) Vital Signs: Last Vital Signs Temp 98 F 05/05/25 13:57 Pulse 85 05/05/25 13:57 Resp 16 05/05/25 13:57 BP 120/76 05/05/25 13:57 Pulse Ox 98 05/05/25 13:57 Oxygen Delivery Method Room Air 05/05/25 13:57 BMI result Body Mass Index 29.0 Tobacco/Smoking Status: Tobacco use Status Tobacco use date assessed 05/05/25 05/05/25 14:01 Patient Tobacco Use Status Never used Tobacco 05/05/25 14:01 e-Cigarette/Vaping Use Never Used 05/05/25 14:01 Thrive Assessment: Date of Thrive Assessment Date Thrive assessed 10/26/24 05/05/25 14:01 Currently or been in a relationship where the following occur: I choose not to answer Office Procedures Flu Questionnaire Does the patient have a severe egg allergy?: No Does the patient have severe life threatening allergies?: No Does the patient have a fever or illness today?: No Has the patient ever had Guillain-[place] Syndrome?: No Has the patient ever had any past reaction to a flu shot?: No Immunizations Fluarix [id number] (PF) 45 mcg (15 mcg x 3)/0.5 mL IM syringe Performing Provider: ERICA Wilkinson [place] [facility] Administered by: Jasmin Villa CMA on 05/05/25 14:31 Dose Route Admin Location Dispensed Lot Number Expiration Date [facility] [employer] Regist[employer] 0.5 mL IM Left Deltoid 0.5 mL [id number] 11/22/25 [id number] [employer] VIS Given Date VIS Provided VIS Publication Date 05/05/25 Single Vaccine 24 Eligibility Eligibility Date Funding Source Not [facility] Eligible 05/05/25 Private Results Reviewed Results Reviewed: Laboratory 04/23/25 Result Units Range Interpretation Provider Comments Sodium Level 141 mmol/L (135-145) Potassium Level 3.7 mmol/L (3.3-5.1) Chloride Level 111 mmol/L (96-108) High Carbon Dioxide Level 23 mmol/L (22-29) Anion Gap 11 (12-20) Low Blood Urea Nitrogen 11 mg/dL (9-16) Creatinine 0.79 mg/dL (0.5-1.4) Estimated Creatinine Clearance Calc Not Reportable Estimat Glomerular Filtration Rate > 60 Random Glucose 103 mg/dL (60-115) Calcium Level 9.1 mg/dL (8.4-10.2) Total Bilirubin 0.4 mg/dL (0.0-1.0) Aspartate Amino Transf (AST/SGOT) 30 U/L (5-31) Alanine Aminotransferase (ALT/SGPT) 25 U/L (0-31) Alkaline Phosphatase 74 U/L (39-117) Total Protein 7.2 g/dL (6.5-8.0) Albumin 4.3 g/dL (3.5-5.0) Triglycerides Level 161 mg/dL (<150) High Cholesterol Level 173 mg/dL (<200) LDL Cholesterol, Calculated 108 mg/dL (<100) High HDL Cholesterol 33 mg/dL (>40) Low Coding Level of Care Code Est Pt Level 4 (79313) Add On Problem Visit Only Diagnoses Vitamin D deficiency E55.9 Mixed hyperlipidemia E78.2 Hyperlipidemia type: mixed hyperlipidemia Influenza vaccination administered at current visit Z23 Environmental allergies Z91.09 Reactive airway disease J45.909 Assessment & Plan Assessment & Plan (1) Vitamin D deficiency: Code(s): E55.9 - Vitamin D deficiency, unspecified Category: Medical (2) HLD (hyperlipidemia): Code(s): E78.5 - Hyperlipidemia, unspecified Category: Medical Qualifiers: Hyperlipidemia type: mixed hyperlipidemia Qualified Code(s): E78.2 - Mixed hyperlipidemia (3) Influenza vaccination administered at current visit: Onset Date: ~05/05/25 Code(s): Z23 - Encounter for immunization Category: Medical (4) Environmental allergies: Code(s): Z91.09 - Other allergy status, other than to drugs and biological substances Category: Medical (5) Reactive airway disease: Code(s): J45.909 - Unspecified asthma, uncomplicated Category: Medical Plan . Orders: Orders Comprehensive Met. Panel 6 Months E55.9 - Vitamin D deficiency, unspecified, E78.5 - Hyperlipidemia, unspecified, Z00.00 - Encounter for general adult medical examination without abnormal findings Hemoglobin A1c 6 Months E55.9 - Vitamin D deficiency, unspecified, E78.5 - Hyperlipidemia, unspecified, Z00.00 - Encounter for general adult medical examination without abnormal findings Vitamin B12 and Folate 6 Months E55.9 - Vitamin D deficiency, unspecified, E78.5 - Hyperlipidemia, unspecified, Z00.00 - Encounter for general adult medical examination without abnormal findings Vitamin D 25-OH Total 6 Months E55.9 - Vitamin D deficiency, unspecified, E78.5 - Hyperlipidemia, unspecified, Z00.00 - Encounter for general adult medical examination without abnormal findings Complete Blood Count no Diff 6 Months E55.9 - Vitamin D deficiency, unspecified, E78.5 - Hyperlipidemia, unspecified, Z00.00 - Encounter for general adult medical examination without abnormal findings Lipid Panel 6 Months E55.9 - Vitamin D deficiency, unspecified, E78.5 - Hyperlipidemia, unspecified, Z00.00 - Encounter for general adult medical exa mination without abnormal findings TSH reflex Free T4 6 Months E55.9 - Vitamin D deficiency, unspecified, E78.5 - Hyperlipidemia, unspecified, Z00.00 - Encounter for general adult medical examination without abnormal findings Influenza [id number] Immunization Today Z23 - Encounter for immunization Medications: New fluticasone propionate 50 mcg/actuation (Allergy Relief (fluticasone)) administer into each nostril 1 spray intranasal DAILY 16 grams 12RF Refilled cholecalciferol (vitamin D3) (Vitamin D3) 25 mcg PO DAILY 90 caps 2RF E55.9 - Vitamin D deficiency, unspecified Discontinued atorvastatin Discontinued Reason: Doctor's Order 20 mg PO BEDTIME 90 tabs 1RF
[2025-05-05 13:57] VITALS: BP 120/76; PULSE 85; RESP 16; TEMP 36.6; O2SAT 98; BMI 29.0
--- OUTSIDE RECORDS SUMMARY | 2025-05-05 20:57 | XMS_ITS | Encounter Summary ---
Author Organization [employer] [facility] Address [address] [place] [address] [address] [place] [address] Care Team Providers Care Program Coordinator For Residence Life Name Role Phone Unavailable Primary Care Provider Unavailabl e Reason for Visit * Reason Onset Date Comments New Patient 02/19/2023 Encounter Details Date Type Department Care Team ([facility] st Contact Info) Description 02/19/2023 Telephone [facility] MEDICINE [address], [place] [phone] Destin Berry MD [address] [place], [place] [phone] New Patient Social History Tobacco Use Types [...] left voicemail to give a call at [phone]. documented in this encounter Plan of Treatment Not on file documented as of this encounter Visit Diagnoses Not on filedocumented in this encounter
--- OUTSIDE RECORDS SUMMARY | 2025-05-05 20:57 | XMS_ITS | Clinical Summary ---
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
--- OUTSIDE RECORDS SUMMARY | 2025-05-05 20:57 | XMS_ITS | Clinical Summary ---
Author Organization [facility] [address] [facility] Address [address] [place] [address] Phone Care Team Providers Care Hand Paint Mixer Name Role Phone JayRebeccaShayy Polanco Primary Care Provider Allergies Active Allergy Reactions [...] for up to 10 days. 8 Active cephalexin (KEFLEX) 500 mg capsule TOME 1 C PSULA POR V A ORAL DOS VECES AL D A POR 7 D 5 Active albuterol HFA (PROAIR HFA ; PROVENTIL HFA ; VENTOLIN HFA) 90 mcg/actuation inhaler INHALE 2 PUFFS INTO LUNGS EVERY 4 TO 6 HOURS NEEDED FOR SHORTNESS OF BREATH OR WHEEZING 5 Active Active Problems Problem Noted Date Diagnosed [...] EST Office Visit Gastroenterology - [address] [place] [phone] Jessy Monroe NP Epigastric abdominal pain (Primary Dx); History of colon polyps 03/30/2025 Telephone Gastroenterology - [address] [facility] [address] [place] [address] Jessy Monroe NP from Last [...] care for your loved ones. For example, children's zoo caretaker or elderly care for an older adult? [...] 09/15/2025 11:20 AM EDT Appointment Radiology Department [address] [phone] Health Maintenance Due Date Last Done Comments [...] is recommended in 1 year. Mammo Location: [facility], [address] [place] [address], [id number], . -------- FINAL REPORT -------- Dictated By: Penelope Mccall Dictated Date: 09/08/2024 12:10 ET Assigned Physician: Penelope Mccall Reviewed and Electronically Signed By: Penelope Mccall Signed Date: 09/08/2024 12:12 ET Workstation ID: [id number] Transcribed By: Self Edit Transcribed Date: 09/08/2024 [...] is recommended in 1 year. Mammo Location: [facility], [address] [place] [address], [id number], . -------- FINAL REPORT -------- Dictated By: Penelope Mccall Dictated Date: 09/08/2024 12:10 ET Assigned Physician: Penelope Mccall Reviewed and Electronically Signed By: Penelope Mccall Signed Date: 09/08/2024 12:12 ET Workstation ID: [id number] Transcribed By: Self Edit Transcribed Date: 09/08/2024 12:10 ET Ioana Eaton CNM IM BI PROCEDURES Final Result * COLONOSCOPY Anesthesia - MAC; [facility] ENDOSCOPY (07/19/2024 8:14 AM EST) Anatomical [...] pathology results. Narrative 07/19/2024 8:14 AM EST [facility] GI Patient Name: Randi Patton Procedure Date: 07/19/2024 7:52 AM Date of : 1980 Age: 44 Gender: Female Note Status: Finalized Attending MD: Chino Larkin DO, [id number] Procedure Date No Time: 07/19/2024 Procedure: Colonoscopy [...] the physician, the nurse, the anesthesiologist, the publication specialist and the lead slot technician in the pre-procedure area in the [...] was minimal. 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 All rights reserved. The codes documented in this report are preliminary and upon field clerk review may be revised to meet current compliance requirements. CHINO Larkin DO 07/19/2024 8:14:46 AM This report has been signed electronically.Chino Larkin DO Number of Addenda: 0 Note Initiated On: 07/19/2024 7:52 AM Scope Withdrawal Time: 0 hours 8 minutes 18 seconds Scope In: 8:01:10 AM Scope Out: 8:13:00 AM Endoscopy Department at [facility] - [address] [place] [phone] Procedure Note Chino Larkin DO - 07/19/2024 [facility] GI Patient Name: Randi Patton Procedure Date: 07/19/2024 7:52 AM Date of : 1980 Age: 44 Gender: Female Note Status: Finalized Attending MD: Chino Larkin DO, [id number] Procedure Date No Time: 07/19/2024 Procedure: Colonoscopy [...] the physician, the nurse, the anesthesiologist, the publication specialist and thetechnician in the pre-procedure area in [...] loss wasminimal. 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 All rights reserved. The codes documented in this report are preliminary and upon field clerk reviewmay be revised to meet current compliance requirements. CHINO Larkin DO 07/19/2024 8:14:46 AM This report has been signed electronically.Chino Larkin DO Number of Addenda: 0 Note Initiated On: 07/19/2024 7:52 AM Scope Withdrawal Time: 0 hours 8 minutes 18 seconds Scope In: 8:01:10 AM Scope Out: 8:13:00 AM Endoscopy Department at [facility] - [address] [place] [phone] IMPRESSION: - Hemorrhoids found on perianal exam. [...] Hepatitis C antibody (05/31/2024 4:14 PM EST) [facility] Hepatitis C Antibody Negative Negative LAB CHEMISTRY METHOD 05/31/2024 7:13 PM EST [facility] Blood Venous blood specimen / Unknown Venipuncture / Unknown 05/31/2024 4:14 PM EST 05/31/2024 4:14 PM EST Phi Davila [facility] BLOOD ORDERABLES Final Re sult Performing Organization Address [facility]/ZIP Co de Phone Number [facility] [address] [place] [address], * HIV 1,2 antibody, p24 antigen with reflex to differentiation (05/31/2024 4:14 PM EST) [facility] HIV Combo AB/AG Negative Negative LAB CHEMISTRY METHOD 05/31/2024 7:13 PM EST [facility] Blood Venous blood specimen / Unknown Venipuncture / Unknown 05/31/2024 4:14 PM EST 05/31/2024 4:14 PM EST Narrative [facility] - 05/31/2024 7:13 [...] CDC recommendation for HIV screening. Phi Davila [facility] BLOOD ORDERABLES Final Re sult Performing Organization Address [facility]/ZIP Co de Phone Number [facility] [address] [place] [address], [place] [phone] * HPV with reflex genotype (05/31/2024 3:39 PM EST) Pathologist [facility] HPV Negative Negative LAB MICROBIOLOGY METHOD 2024 2:26 PM EST [facility] Brushing Cervix uteri structure / Unknown 05/31/2024 3:39 PM EST 06/01/2024 9:44 AM EST Phi PERE[facility] LAB MOLECULAR DIAGNOSTICS ORD ERABLES Final Result [facility] [address] [place] [address], * Lipid panel (06/14/2020) Pathologist [facility] LDL/HDL Ratio 0 Comment:no interpretation, a bstracted Triglycerides 0 mg/dL Comment:no interpretation, a bstracted Cholesterol 0 mg/dL Comment:no interpretation, a bstracted HDL 0 mg/dL Comment:no interpretation, a bstracted LDL Cholesterol 0 mg/dL Comment:no interpretation, a bstracted Blood Venous blood specimen / Unknown Historical Provider LAB BLOOD ORDERABLES Nuria l Result from Last 3 Months or Most Recently Relevant to Health Maintenance Insurance [facility] Care Teams Hand Paint Mixer Relationship Specialty Start Date End Date Shayy Means FNP [address] [place] [phone] PCP - General Nurse Practitioner 03/30/25
== END 2025-05-05 14:31 | disposition home or self-care (01) ==
LOC: HO.HMCFM 13:42
PROVIDERS: PCP Nurse Practitioner Family; Visit Provider Nurse Practitioner Family
DX: E55.9 Vitamin D deficiency, unspecified (principal); E78.2 Mixed hyperlipidemia; Z23 Encounter for immunization; Z91.09 Other allergy status, other than to drugs and biological substances; J45.909 Unspecified asthma, uncomplicated

== ENCOUNTER → 2025-05-05 13:41 | Outpatient (BNVA) | payer OTHER, SELFPAY | PROVIDERS: PCP Nurse Practitioner Family; Visit Provider Nurse Practitioner Family | DX: Z23 Encounter for immunization (principal) | CPT/HCPCS: 90471; 90656 ==